=== PATIENT | female | born 1945 | race Caucasian/White ===

== ENCOUNTER → 2018-09-06 13:48 | Outpatient (CLI) | payer MEDICARE, SELFPAY ==
[2018-09-06 14:23] LABS: Influenza A and B by PCR Rapid Negative (Negative)
== END ==
PROVIDERS: Family Provider Internal Medicine; PCP Nurse Practitioner Family; Visit Provider Physician Assistant
DX: R68.89 Other general symptoms and signs (principal)
CPT/HCPCS: 87400

== ENCOUNTER → 2019-02-20 09:27 | Outpatient (CLI) | payer MEDICARE, SELFPAY ==
[2019-02-20 11:23] LABS: Add Manual Diff / Slide Review NO; Basophils Absolute Auto 0 /uL (0-100); Basophils Percent Auto 0.5 % (0-2); Eosinophils Absolute Auto 100 /uL (0-450); Eosinophils Percent Auto 1.6 % (2-4); Hematocrit 41.3 % (36-46); Hemoglobin 13.7 g/dL (12.0-16.0); Lymphocytes Absolute Auto 1500 /uL (1100-4500); Mean Corpuscular HGB Conc 33.2 % (30-36); Mean Corpuscular Hemoglobin 28.4 PG (26-34); Mean Corpuscular Volume 85.3 fL (80-100); Monocytes Absolute Auto 400 /uL (0-900); Monocytes Percent Auto 9.2 % (3-14); Neutrophils Absolute Auto 2600 /uL (1500-7000); Neutrophils Percent Auto 56.7 % (50-75); Platelet Count 191 X10^3/uL (150-400); Red Blood Cell Count 4.84 X10^6/uL (4.0-5.2); Red Cell Distribution Width 14.1 % (11.6-14.8); White Blood Cell Count 4.7 X10^3/uL (4.5-11.0)
[2019-02-20 11:46] LABS: Carbon Dioxide 28 mmol/L (22-32); Chloride 108 mmol/L (98-107); HEMOLYSIS < 15 (0-50); Potassium 4.4 mmol/L (3.4-5.1); Sodium 143 mmol/L (137-145)
== END ==
PROVIDERS: Family Provider Student in an Organized Health Care Education/Training Program; PCP Student in an Organized Health Care Education/Training Program; Visit Provider Orthopaedic Surgery
DX: Z01.818 Encounter for other preprocedural examination (principal); Z01.812 Encounter for preprocedural laboratory examination; M17.10 Unilateral primary osteoarthritis, unspecified knee
CPT/HCPCS: 36415; 80051; 85025; 93005

== ENCOUNTER 2019-02-28 09:41 | Inpatient (IN) | payer MEDICARE, SELFPAY ==
[2019-02-19 10:00] VITALS: BMI 44.9
[2019-02-28] VITALS (11 sets, daily range): BP systolic 119–148; BP diastolic 69–89; PULSE 65–82; RESP 10–23; TEMP 35.9–37; O2SAT 92–97; BMI 44.9
--- NOTE | 2019-02-28 07:37 | DI.RAD.S_ITS ---
PROCEDURE: XR KNEE RT 1TO2V INDICATIONS: post op right TKA TECHNIQUE: 2 view(s) of the knee acquired. COMPARISON: [facility] [place], [place], XR KNEE ARTHRITIC SERIES , 10/07/2018, 7:48. FINDINGS: Bones: Patient is status post knee joint arthroplasty. Hardware components are in expected positions. Visualized bony structures are intact. Soft tissues: Overlying postoperative changes are noted. IMPRESSION: Right knee prosthesis in anatomic line. Dictated by: Magi Hernandez M.D. on 02/28/2019 at 18:17 Approved by: Magi Hernandez M.D. on 02/28/2019 at 18:18
[2019-02-28] MEDS: ACETAMINOPHEN 325 MG TABLET 975 MG PO ×2 (10:17→15:44)
[2019-02-28] MEDS: PREGABALIN 75 MG CAPSULE PO (10:19)
[2019-02-28] MEDS: CELECOXIB 200 MG CAPSULE PO (10:19)
[2019-02-28] MEDS: LACTATED RINGERS 1,000 ML 42 ML IV (10:37)
--- NOTE | 2019-02-28 11:36 | P.OP_ITS ---
Operative Date/Time/Diagnoses Date of procedure: 02/28/19 Time of procedure: 13:42 Pre-op diagnosis: Right knee osteoarthritis Post-op diagnosis: same Procedure & Clinicians Procedure: Right total knee arthroplasty Same procedure as scheduled: Yes Indications: The patient presents today for total knee arthroplasty after failure of conservative treatment. The nature of the procedure including the risks and benefits, alternatives, postoperative course and expected outcome were discussed and all questions answered. Consent was obtained. Operative site confirmed and marked. Surgeon: Koko Hylton Envelope Press Operator: Kvng Gonzalez Anesthesia Type: General, Spinal and Local Operative Notes Findings: The patient had severe osteoarthritis with valgus alignment. The patella rode quite laterally and had thinned out the lateral facet. The patella still had some tilt even after the tourniquet was let down so a lateral patellar retinacular release was necessary. This fully corrected the patellar alignment. Closure Type: primary Specimen(s): none sent Prosthetic devices, grafts, tissues, transplants, or devices: Harpal Persona TKA [femora] CR femoral component, [tibia] stemmed tibial component, [tray] polyethylene tray and [35] mm all poly patella. Applied: implant(s) Estimated Blood Loss (mL): 25 Blood products transfused: none Tourniquet time (min): 49 Procedure in detail: The patient was taken to the operative suite and placed under general and spinal anesthesia. The patient was given prophylactic antibiotics prior to surgery. The patient was also given tranexamic acid, 1 g, just prior to surgery for postoperative hemostasis. The lateral knee was prepped and the joint injected with 20 mL of 1% Lidocaine with epinephrine. The knee was then prepped and draped in usual sterile fashion. The leg was exsanguinated with an Esmarch dressing and the tourniquet raised to 250 torr. A 15 cm anterior incision was made. Next a medial trivector arthrotomy was made. The extensor mechanism was marked to ensure accurate repair. Initial exposing dissection was carried out medially and laterally. The knee was then extended and the patellar thickness was measured and a cut made removing approximately 7- 8 mm of bone. The patella was then sized and drilled. Some excess lateral bone was excised and the patellofemoral ligament released. The knee was then flexed and the intramedullary femoral guide herman placed. The distal femoral cut was made in 5 ? of valgus at the + 0 position. The femoral size was measured and the appropriate cutting block was then placed and the anterior, posterior and chamfer cuts made. The intramedullary tibial alignment herman was then placed. The guide was set to remove approximately 7 mm from the less affected medial side. The proximal tibial cut was then made with an oscillating saw. All meniscus and bony debris was then removed. Posterior femoral osteophytes removed with a curved osteotome. Flexion extension gaps were checked. The knee was tighter in extension than flexion. It was also just slightly tighter laterally. The lateral tightness was corrected by releasing the lateral structures with a pie crust technique with a 15 blade. Another 2 mm was cut from the femur to balance the flexion and extension gaps. The soft tissues were then injected with a combination of 20 mL of half percent Marcaine with epinephrine and 20 mL of Exparel. The trial components were then placed. The knee went into full extension and flexion beyond 120?. There was good medial- lateral balance throughout motion. Patellar tracking showed tilting even after the tourniquet was released. I felt there was appropriate external rotation on both the femoral and tibial component and that this tracking was due to a chronic lateral subluxation of the patella. The patellar retinaculum was released which fully corrected the patellar tracking. The trial components were removed and the knee was cleansed with Pulsavac irrigation and dried. The final components were cemented with high viscosity vacuum mixed bone cement with antibiotics. The joint was filled with a dilute Betadine solution. The knee was held in extension and the patellar clamped until the cement was fully cured. The knee was then irrigated. The extensor mechanism was closed with 5 interrupted #1 Vicryl sutures and a running Quill suture at 90 degrees of flexion. The joint was then injected with a combination of 1 g of tranexamic acid and 20 mL of quarter percent Marcaine with epinephrine. The subcutaneous tissue was closed with 2 0 Vicryl. The skin was closed with millicent and surgical adhesive. An Aquacel dressing and Aaron wrap were then applied. The patient tolerated the procedure well and was returned to recovery room in good condition. Complications: none Post-operative Condition: stable Disposition: PACU Plan for aftercare: [facility] protocol for total knee arthroplasty.
--- NOTE | 2019-02-28 11:36 | PM.PREOP ---
Pre-operative Note Interval Note History & Physical reviewed/Exam performed by Physician: Yes Changes to H&P: No
[2019-02-28] MEDS: CEFAZOLIN 2 GM/100 ML FROZ.PIGGY IV ×2 (12:03→20:03)
--- NOTE | 2019-02-28 12:30 | SUR.OPER ---
Supine on padded OR bed. Pillow under head, arms secured on padded armboards <90 degree abduction. Safety belt across torso. Non-operative leg secured with tape over blanket over lower leg. Operative leg secured in DeMayo/Blayne positioner. Foam padded brace at thigh of operative leg.
[2019-02-28] MEDS: BUPIVACAINE 0.25% W/ EPI (PF) 20 ML, TRANEXAMIC ACID 1,000 MG, SODIUM CHLORIDE 0.9% 10 ML INJ (12:46)
[2019-02-28] MEDS: TRANEXAMIC ACID 1,000 MG VIAL 1000 MG INJ (12:47)
[2019-02-28] MEDS: BUPIVACAINE 0.25% W/ EPI (PF) 40 ML, BUPIVACAINE LIPOSOME 266 MG, SODIUM CHLORIDE 0.9% ... INJ (12:47)
[2019-02-28] MEDS: LIDOCAINE 1% W/EPI 20 ML INJ (12:48)
[2019-02-28] MEDS: SODIUM CHLORIDE IRRIG SOLUTION 250 ML, POVIDONE-IODINE SPONGE STICKS 1 APPLIC IRR (12:48)
--- NOTE | 2019-02-28 15:04 | SUR.PHASEI ---
Report to Gustavo Jackson RN. Pt transferred to room 227 in very stable condition. Remains numb to L1 but is able to flex both feet. Denies pain, VSS, clothes and CPAP sent with pt.
--- NOTE | 2019-02-28 15:07 | PC.NURSE ---
Pt to room via bed from PACU with OR personnel. Pt awake, alert, and oriented x 3. Denies pain, nausea, shortness of breath. O2 sat 94% RA. SCD's on and running. General diet ordered per Pt preference. Pt able to wiggle toes and move feet. Aaron wrap over Aquacell dsg is cdi with ice pack in place. Pt oriented to room, call light, bed controls, and tv controls. Friends at the bedside. Bed alarm on and functioning. Pt agrees to not attempt to get up without assistance.
[2019-02-28] MEDS: LACTATED RINGERS 1,000 ML 125 ML IV (15:44)
[2019-02-28] MEDS: OXYCODONE/ACETAMINOPHEN 5/325 TABLET 1 TAB PO (18:05)
--- NOTE | 2019-02-28 18:15 | PT.IIE ---
Current Diagnoses Unilateral primary osteoarthritis, right knee (02/28/19) Presence of left artificial knee joint (02/28/19) Surgery Performed Operation Date: 02/28/19 11:45 Actual Procedures p Total Knee Arthroplasty(Right) - Koko Hylton MD Surgical History (Last Updated 02/19/19 @ 10:36 by Purnima Barger RN) H/O: hysterectomy (Acute ~1991) History of arthroplasty of left knee (Acute 09/27/16) History of tonsillectomy and adenoidectomy (Acute) Hx of bilateral cataract extraction (Acute) Hx of cholecystectomy (Acute) Hx of resection of small bowel (Acute ~2013) Hx of thumb surgery (Acute) S/P colon resection (Acute ~1991) S/P total knee arthroplasty (Chronic) Medical History (Last Updated 02/19/19 @ 10:35 by Purnima Barger RN) Ankylosing spondylitis of lumbosacral region (Chronic) Anxiety (Acute) Arthritis (Acute) Bakers cyst (Chronic) Johnson's esophagus (Acute) Depression (Acute) Diverticulitis (Acute) Inflammatory bowel diseases (IBD) (Chronic) Left knee pain (Inactive) Lower back pain (Acute) Morbid obesity with BMI of 45.0-49.9, adult (Chronic) Obstructive sleep apnea of adult (Chronic) Primary insomnia (Chronic) Psoriatic arthropathy (Chronic) Right shoulder pain (Acute) Seasonal allergies (Acute) Ulcer (Acute) Physical Therapy Inpatient Evaluation/Re-Eval M1 PT/OT-IP Prior Functional Status Start: 02/28/19 16:45 Freq: NEEDED Status: Active Protocol: Document 02/28/19 16:55 (Rec: 02/28/19 18:15 [id number]) Medical Review Prior Functional Status Medical History Reviewed Yes Diet/Fluid Consistency Regular Communication no deficits noted. able to make needs known Mobility and Gait Pt stated she was independent with home mobility and community without AD. Pt did have difficulty amb for long distance recently and transfer from sit to stand was her most limited activity. Activities of Daily Living and IADL's Pt was I for ADLs but her partner has been helping her with grocery shopping, walking her dog, lifting etc. Social History Household Members significant other Living Arrangements House Number of Floors (Floors) One Floor Number of Stairs To Enter/Railing? 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 Her partner works lane marker installer as a clothes designer and will not be home most of the time. 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 Pt stated she is opened to be d/c to SNF to participate rehab prior to d/c home. Pt had L TKA in 2017 and able to d/c home. M2 PT-IP Current Condition Start: 02/28/19 16:45 Freq: NEEDED Status: Active Protocol: Document 02/28/19 16:55 (Rec: 02/28/19 18:15 [id number]) Physical Therapy Current Condition Current Condition Evaluation Date 02/28/19 Treatment Diagnosis R TKA, difficulty in walking Onset Date 02/28/19 Weight Bearing Status Weight Bearing Status Weight Bear as Tolerated M3 PT-IP Subjective Start: 02/28/19 16:45 Freq: NEEDED Status: Active Protocol: Document 02/28/19 16:55 HH (Rec: 02/28/19 18:15 [id number]) Subjective Physical Therapy Visit Type Type Initial Evaluation Visit Start Time 16:55 Visit Stop Time 17:25 Total Visit Minutes 30 Number of GENERAL OFFICE DISPATCHER Visits 0 Physical Therapy Visit Comments Patient Comments I want to use the bathroom. Patient Goals Pt is opened to d/c to SNF for rehab. Therapy Pain Assessment Pain When Pain Assessed During Mobility Pain Present Pain Present Pain Reported Location L knee Intensity 2 Scale Used Numeric (1 - 10) Description Acute Pain Management Techniques Apply Cold,Distraction M4 PT-IP Mobility and Gait Start: 02/28/19 16:45 Freq: NEEDED Status: Active Protocol: Document 02/28/19 16:55 (Rec: 02/28/19 18:15 [id number]) PT-Bed Mobility Assessment Rolling Type of Rolling Roll to Right Level of Assist Contact Guard Assistance Supine to Sit Supine to Sit Contact Guard Assistance Scooting Scooting to Edge of Bed Contact Guard Assistance Scooting Up and Down in Bed Contact Guard Assistance PT-Transfer Assessment Sit to and From Stand Sit to and from Stand Contact Guard Assistance, Minimal Assistance,Use of Upper Extremities Equipment Transfer Assistive Device Gait Belt,Front Wheeled Walker Orthotic/Prosthetic Devices or Brace: No Transfers Transfer Destination Bed,Chair,Toilet Transfer Technique Stand Step Pivot Transfer Ability Level of Assist Contact Guard Assistance, Minimal Assistance,Use of Upper Extremities Comments Mobility Comments Pt was in bed upon assessment and requested to use bathroom. Pt completed supine to sit to R EOB using R bed rail. She then scooted towards EOB and able to stand up with SBA and FWW. Pt's AROM appeared to have WNL without c/o increase pain. She then amb to bathroom for toileting who didnt need to use staggered stance for descent to toilet chair but use of grab bar for support. She did self care and stood up again. Pt requested to back to chair due to increase in pain and fatigue. Pt amb a total of 8 feet with FWW and antalgic gait, but able to use 1/2 step over gait. Pt did need CGA/ min A for transfers. Call light was placed within reach after pt sat down/ Gait Assessment Gait Gait Assistance Required: Contact Guard Assist Distance (Feet) 8 Able to Maintain Weight Bearing Status Yes During Gait Assistive Devices Assistive Device Gait Belt,Front Wheeled Walker Orthotic/Prosthetic Devices or Brace: No Gait Deviations General Gait Pattern Antalgic,Decreased Stride Length,Decreased Feet Clearance,Step-to Gait Factors Limiting Gait Function Factors Limiting Gait Function Decreased Activity Tolerance, Decreased Strength,Limited Range of Motion,Pain,Poor Balance Comments Gait Comments see mobility comments PT-Balance Assessment Sitting Balance and Reactions Static Sitting Balance Ability Normal Dynamic Sitting Balance Ability Normal Standing Balance and Reactions Static Standing Balance Ability Normal Dynamic Standing Balance Ability Good Device Used FWW M5 PT-IP Objective Assessments Start: 02/28/19 16:45 Freq: NEEDED Status: Active Protocol: Document 02/28/19 16:55 (Rec: 02/28/19 18:15 [id number]) Orientation Orientation/Cognition Level of Alertness Alert Orientation Name,Age,Birthday,Month,Date, Year,Day of Week,Place, Situation Language Function Ability No Deficits Noted Safety Awareness Understands Safety Issues Memory Description No Deficits Noted Gross Range of Motion Upper Extremity ROM Assessment Within Functional Limits Lower Extremity ROM Assessment Right Impaired Impairments knee AROM 5-100 degrees Coordination Assessment Gross Coordination Gross Coordination WNL Sensation Assessment Sensation Gross Sensation WNL Muscle Tone Muscle Tone WNL Yes M6 PT-IP Treatment Start: 02/28/19 16:45 Freq: NEEDED Status: Active Protocol: Document 02/28/19 16:55 (Rec: 02/28/19 18:15 [id number]) Physical Therapy Treatment Exercises Exercises Quad Sets,Heel Slides Education Education Provided Precautions,Weight Bearing Status,Post-Op Packet,Safety M7 PT-IP Assessment and Plan Start: 02/28/19 16:45 Freq: NEEDED Status: Active Protocol: Document 02/28/19 16:55 (Rec: 02/28/19 18:15 [id number]) PT Summary Assessment and Plan Potential Rehabilitation Potential Excellent Status of Condition at Evaluation Stable Summary Impairments Pain,ROM,Strength,Balance,Bed Mobility,Transfers,Gait, Activity Tolerance Assessment Summary Pt is a low complexity who is POD#1 R TKA. Pt did fairly well for transfers and bed mobility but did not amb much due to increase in knee pain. Pt overall needed CGA/ min A and appear relatively safe at this point. 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 Pt is very opended to be d/c SNF to participate rehab to improve mobility and strength. Will cont assess pt's progress. Goals Bed Mobility Goal Standby Assistance Transfer Goal Standby Assistance,Front Wheeled Walker Gait Goal Standby Assistance,Front Wheel Walker Gait Distance 100 Other Goals 5 MACRINA with B rails Days to Meet Goals 5 Frequency of Treatment Frequency Of Treatment Twice a Day Treatment Plan Physical Therapy Treatment Plan Bed Mobility Training,Transfer Training,Gait Training, Therapeutic Exercise,Balance Retraining,Post Op Education, Discharge Planning,Hot or Cold Pack,Neuromuscular Re-ed Other Recommendations and Next Treatment mobility as jeramie Focus stair climbing with B rails if possible CG training Recommendations To Nursing Amount of Assist Needed 1 Person Assist Discharge Recommendations PT Discharge Recommendations Home with Assistance,Home Health,SNF Rehab Equipment Needed for Home Before shower seat/ shower bench Discharge since Pt has a narrow shower tub
[2019-02-28] MEDS: ASPIRIN EC 81 MG TABLET PO (20:03)
[2019-02-28] MEDS: CITALOPRAM 10 MG TABLET PO (20:03)
--- NOTE | 2019-02-28 22:32 | PC.NURSE ---
Alert/oriented. Pain level 4-5/10, managed with one percocet. Pt declined 2100 dose of tylenol, states maybe later. Aquacell/nahed wrap c/d/i. CMS+, except baseline residual numbness, between toes on left-per pt report. LS decreased. CPAP for sleep, 2-3L to keep sats greater than 90% as per order. Continuous pulse ox on per duramorph spinal orders. RT assisted with CPAP setup. Up with one assist/walker to BR. Bed alarm on.
[2019-03-01] VITALS (7 sets, daily range): BP systolic 110–137; BP diastolic 65–83; PULSE 57–75; RESP 16–18; TEMP 36.3–36.8; O2SAT 94–98
[2019-03-01] MEDS: OXYCODONE/ACETAMINOPHEN 5/325 TABLET 1 TAB PO ×3 (00:35→08:28)
[2019-03-01] MEDS: LACTATED RINGERS 1,000 ML 125 ML IV (00:36)
[2019-03-01] MEDS: CEFAZOLIN 2 GM/100 ML FROZ.PIGGY IV (04:25)
[2019-03-01] MEDS: PANTOPRAZOLE 20 MG TABLET PO (06:20)
[2019-03-01 06:55] LABS: Hematocrit 38.3 % (36-46); Hemoglobin 12.7 g/dL (12.0-16.0)
[2019-03-01] MEDS: ACETAMINOPHEN 325 MG TABLET 975 MG PO ×3 (08:28→20:42)
[2019-03-01] MEDS: ASPIRIN EC 81 MG TABLET PO ×2 (08:28→20:42)
[2019-03-01] MEDS: SODIUM CHLORIDE 0.9% FLUSH 10 ML IV ×2 (08:29→20:42)
--- NOTE | 2019-03-01 08:34 | PC.NURSE ---
Shift summary: Alert and oriented X3. Aaron wrap/dressing to R knee C/D/I. CMS+, denies paresthesias. Strong pedal pulses, feet warm/pink, cap refill <2 sec. Medicated with 1 tab Percocet + scheduled Tylenol for 6/10 R knee pain. Tolerating PO's, VSS, denies dizziness or lightheadeness with ambulation. IV saline locked per protocol. Lungs CTA, HRR. Room air. Up to bathroom, then to chair for breakfast. Able to make needs known and calls appropriately. Call light and belongings within reach. Moderate fall risk.
--- NOTE | 2019-03-01 10:05 | PM.PNPO.1 ---
Subjective Subjective Date Patient Seen: 03/01/19 Time Patient Seen: 10:06 Interval history: Alexandra is POD 1 s/p right total knee arthroplasty with Dr. Hylton. Patient's pain well-controlled last night. She worked with Physical therapy this morning. Patient lives with her partner at home, but notes her partner will be unable to care for her. Her block wore off this morning. Denies chest pain, or shortness of breath. Exam Vital Signs (past 8 hours): - 03/01/19 04:24 03/01/19 07:50 Temperature 97.8 F 97.4 F L Pulse Rate 57 L 66 Respiratory Rate 18 16 Blood Pressure 126/76 132/83 Pulse Oximetry 98 97 Oxygen Delivery Method Room Air Oxygen Flow Rate 0 Narrative Exam Narrative: Patient lying in bed in no acute distress. She is alert orient x3. Calves are soft, compressible, nontender bilaterally. Able actively dorsiflex plantar flex. Sensation intact to light touch throughout bilateral extremities. Pulses are symmetrical. Right knee dressing CDI, and Aaron wrap in place. Objective Labs Result Diagrams: 03/01/19 06:37 Labs: Laboratory Results - last 24 hr 03/01/19 06:37 Hgb 12.7 Hct 38.3 Assessment & Plan Post-op Assessment and plan (1) S/P total knee arthroplasty: (2) Inflammatory bowel diseases (IBD): (3) Morbid obesity with BMI of 45.0-49.9, adult: (4) Psoriatic arthropathy: (5) Ankylosing spondylitis of lumbosacral region: (6) Obstructive sleep apnea of adult: (7) Diverticulitis: (8) Stomach ulcer: (9) Johnson esophagus: Postoperative Procedures: Procedures Operation Date: 02/28/19 11:45 Actual Procedures Side Surgeon p Total Knee Arthroplasty Right Koko Hylton MD Patient will mobilize with physical therapy today. Patient will continue current pain control. ASA for DVT prophylaxis. Patient will likely need group home facility for continued care after surgery. Quality VTE Deep Vein Thrombosis/Pulmonary Embolism Present on Admission: No
--- NOTE | 2019-03-01 10:51 | PT.IPTN ---
Current Diagnoses Morbid (severe) obesity due to excess calories (02/28/19) Obstructive sleep apnea (adult) (pediatric) (02/28/19) Johnson's esophagus without dysplasia (02/28/19) Gastric ulcer, unspecified as acute or chronic, without hemorrhage or perforation (02/28/19) Noninfective gastroenteritis and colitis, unspecified (02/28/19) Diverticulitis of intestine, part unspecified, without perforation or abscess without bleeding (02/28/19) Arthropathic psoriasis, unspecified (02/28/19) Unilateral primary osteoarthritis, right knee (02/28/19) Ankylosing spondylitis of lumbosacral region (02/28/19) Body mass index (BMI) 45.0-49.9, adult (02/28/19) Presence of left artificial knee joint (02/28/19) Presence of unspecified artificial knee joint (02/28/19) Surgery Performed Operation Date: 02/28/19 11:45 Actual Procedures p Total Knee Arthroplasty(Right) - Koko Hylton MD Physical Therapy Treatment Note M2 PT-IP Current Condition Start: 02/28/19 16:45 Freq: NEEDED Status: Active Protocol: Document 02/28/19 16:55 HH (Rec: 02/28/19 18:15 HH [id number]) Physical Therapy Current Condition Current Condition Evaluation Date 02/28/19 Treatment Diagnosis R TKA, difficulty in walking Onset Date 02/28/19 Weight Bearing Status Weight Bearing Status Weight Bear as Tolerated M3 PT-IP Subjective Start: 02/28/19 16:45 Freq: NEEDED Status: Active Protocol: Document 03/01/19 09:27 MILLER (Rec: 03/01/19 10:48 MILLER [id number]) Subjective Physical Therapy Visit Type Type Treatment Note Visit Start Time 09:27 Visit Stop Time 09:49 Total Visit Minutes 22 Physical Therapy Visit Comments Patient Comments Wants to use the toilet and walk in hallway. Patient Goals D/C to SNF M4 PT-IP Mobility and Gait Start: 02/28/19 16:45 Freq: NEEDED Status: Active Protocol: Document 03/01/19 09:27 LJ (Rec: 03/01/19 10:48 LJ [id number]) PT-Transfer Assessment Sit to and From Stand Sit to and from Stand Standby Assistance,Use of Upper Extremities Equipment Transfer Assistive Device Gait Belt,Front Wheeled Walker Orthotic/Prosthetic Devices or Brace: No Transfers Transfer Destination Bed,Toilet Transfer Technique Stand Step Pivot Transfer Ability Level of Assist Standby Assistance,Use of Upper Extremities Comments Mobility Comments Pt sitting in chair wanting to use the toilet and ambulate in hallway. SBA for standing from chair and toilet and sitting onto toilet. Pt used handrails in bathroom for sitting onto and getting up from toilet. Pt able to lift her legs to return to bed without assist. SAlso able to scoot up in bed with SBA. All Bed mobility was SBA. Gait Assessment Gait Gait Assistance Required: Standby Assistance Distance (Feet) 180 Able to Maintain Weight Bearing Status Yes During Gait Assistive Devices Assistive Device Gait Belt,Front Wheeled Walker Orthotic/Prosthetic Devices or Brace: No Gait Deviations General Gait Pattern Antalgic,Decreased Stride Length,Decreased Feet Clearance,Step-to Gait Factors Limiting Gait Function Factors Limiting Gait Function Decreased Activity Tolerance, Decreased Strength,Limited Range of Motion,Pain,Poor Balance Comments Gait Comments Pt was steady on her feet during ambulation requiring SBA. Good balance and gait pattern. Distance tolerance increased since yesterday. Pt stated knee was somewhat painful but not too bad. M5 PT-IP Objective Assessments Start: 02/28/19 16:45 Freq: NEEDED Status: Active Protocol: Document 02/28/19 16:55 (Rec: 02/28/19 18:15 [id number]) Orientation Orientation/Cognition Level of Alertness Alert Orientation Name,Age,Birthday,Month,Date, Year,Day of Week,Place, Situation Language Function Ability No Deficits Noted Safety Awareness Understands Safety Issues Memory Description No Deficits Noted Gross Range of Motion Upper Extremity ROM Assessment Within Functional Limits Lower Extremity ROM Assessment Right Impaired Impairments knee AROM 5-100 degrees Coordination Assessment Gross Coordination Gross Coordination WNL Sensation Assessment Sensation Gross Sensation WNL Muscle Tone Muscle Tone WNL Yes M6 PT-IP Treatment Start: 02/28/19 16:45 Freq: NEEDED Status: Active Protocol: Document 02/28/19 16:55 (Rec: 02/28/19 18:15 [id number]) Physical Therapy Treatment Exercises Exercises Quad Sets,Heel Slides Education Education Provided Precautions,Weight Bearing Status,Post-Op Packet,Safety M7 PT-IP Assessment and Plan Start: 02/28/19 16:45 Freq: NEEDED Status: Active Protocol: Document 03/01/19 09:27 MILLER (Rec: 03/01/19 10:48 MILLER [id number]) PT Summary Assessment and Plan Potential Rehabilitation Potential Excellent Status of Condition at Evaluation Stable Summary Impairments Pain,ROM,Strength,Balance,Bed Mobility,Transfers,Gait, Activity Tolerance Assessment Summary Pt has shown improvement since yesterday with mobility and gait SBA. Pt appears relatively safe at this point. 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 Pt is very opended to be d/c SNF to participate rehab to improve mobility and strength. Will cont assess pt's progress. Pt is not wanting to go home due to several factors which she stated. Firstly, she is concerned about the gravel road she needs to navigate to get into house. Her second concern is that she is unable to get into her bed and shower . She has not attempted stairs but will do so in the afternoon treatment. Thirdly, pt states she will not be able to get to her OP PT appointments due to her inability to drive and her partner's fulltime job. This COMMUNICATION ENGINEER recommends short term SNF or HH Goals Bed Mobility Goal Standby Assistance Transfer Goal Standby Assistance,Front Wheeled Walker Gait Goal Standby Assistance,Front Wheel Walker Gait Distance 100 Other Goals 5 MACRINA with B rails Days to Meet Goals 5 Frequency of Treatment Frequency Of Treatment Twice a Day Treatment Plan Physical Therapy Treatment Plan Bed Mobility Training,Transfer Training,Gait Training, Therapeutic Exercise,Balance Retraining,Post Op Education, Discharge Planning,Hot or Cold Pack,Neuromuscular Re-ed Other Recommendations and Next Treatment mobility as jeramie Focus stair climbing with B rails if possible CG training Recommendations To Nursing Amount of Assist Needed Standby Assistance Discharge Recommendations PT Discharge Recommendations Home with Assistance,Home Health,SNF Rehab Equipment Needed for Home Before shower seat/ shower bench Discharge since Pt has a narrow shower tub
[2019-03-01] MEDS: OXYCODONE IR 5 MG TABLET PO ×3 (13:16→20:42)
--- NOTE | 2019-03-01 14:17 | CM.DANOTE ---
DCP/Assessment: Reviewed chart. Patient is a 73yr old female admitted [facility] for right TKA performed on 02-28-[address] Hylton. PCP is Lolita Quintero. Primary payor is 1)Medicare 2)[facility]. Met with patient explained CM/SW role. Patient reports that she resides with her partner/Kath ph# [phone] in [place]. Patient is hopeful that she will be able to go to a SNF for recovery. Patient reports that her partner is not home during the day and she has no additional support. Notified patient that payment for SNF rehab will be determined on which status she is placed in. Patient made aware that if she is placed in OBS status she will be responsible financially for room/board at SNF. If patient inpatient status she will need to qualify under Medicare guidelines to be eligible. [facility] SNF choice is [facility]. Therapy evaluations pending. UR/Koko reviewing for status. CRUCIBLE PACKER faxed clinical to [facility] with copy of PASRR. Spoke with Dashawn whom reports that they most likely can take on Sunday03-03-19. P: If patient qualifies for SNF, [facility] first choice. If she does not may need to consider home with HH. Patient made aware of both. If patient does not meet inpatient status requirements and qualifies for SNF under rehab she will need to pay privately for room/board. JOSHUA Pope Discharge Planning/Care Management CM Discharge Assessment Start: 03/01/19 14:08 Freq: Status: Active Protocol: Document 03/01/19 14:08 ADITYA (Rec: 03/01/19 14:17 ADITYA [id number]) Discharge Planning Assessment Assigned [employer] Processing Labourer JOSHUA Pope Advance Directives? Yes Advance Directives on File Yes History Provided By Patient,Medical Record Prior Living Arrangements House Household Members significant other Type of transporation used prior to Drives own vehicle admit Independent with ADL's Yes Is patient alert and oriented? Yes Caregiver for Another No DME Already Rented / Owned FWW / Walker Patient/Family Preference Jail Facility Discharge Plan Jail Facility Transportation Arrangement Facility to provide transport Referrals Initiated Jail If patient plan is SNF: Has PASSR been Yes completed? Comment Awaiting status update Medicare Choice List Provided Yes SNF/HH Preference [facility] Has Agency SNF been contacted Yes Comment Faxed clinical to Dashawn at [facility]. Per Dashawn they most likely can accept on Sunday03-03-19. Whiteboard Updated in Patient Room with Yes name and ext. # of [employer] Processing Labourer Review Status In Process Next Review Type Continued Stay Review Pre-Anesthesia Assessment Start: 02/19/19 10:00 Freq: Status: Active Protocol: Document 02/19/19 10:00 CAB (Rec: 02/19/19 10:40 CAB [id number]) Pre-Anesthesia Assessment Patient Information Reviewed Via Phone Assessment Assessment Completed With Patient Diagnostic Results BMP/CMP,CBC,EKG Comment LABs/EKG @ 02/20/19 Primary Care Provider Lolita Quintero Seen Specialist in Last 12 Months Yes Specialist Seen Orthopedist,Sleep specialist, Other Comment Rheumatology Primary Language Persian Videogame Tester Required No Height 152.4 cm Weight 104.326 kg Body Mass Index (BMI) 44.9 Hearing Ability Normal Visual Impairment No Limitations Visual Assist None Dentition Type Teeth, Natural Present Barriers to Learning None Hx Anesthesia Reactions Yes: PONV Hx Family Anesthesia Reaction No Hx Malignant Hyperthermia No Hx Blood Transfusions No Anesthesia Review Requested No Supervisor Finishing Yes: Pt would like to d/c to [facility]. alcohol intake former Smoking Status Never smoker Substance Use Type does not use Pain Present Pain Reported Musculoskeletal Symptoms Abnormal Gait,Back Pain, Difficulty Walking,Joint Pain, Muscle Cramps,Neck Pain History of Falling (Recent or History of No ) Patient is completely paralyzed or No completely immobile Mental Status Oriented to own ability Is patient on oxygen? No Does patient have DE LEON/SOB Yes: DE LEON r/t deconditioning Hx Sleep Apnea Yes CPAP/BIPAP use prescribed and used routinely Will Bring CPAP/BIPAP DOS Yes Currently Taking a Beta Jac No Can You Climb a Flight of Stairs Without Yes SOB Hx Chest Pain No Hx SOB Yes: DE LEON r/t deconditioning Hx Syncope or Dizziness No Anti-Coagulant Therapy No Has a Reproductive Endocrinologist No Cardiac Testing No Hx Pacemaker/ICD No Pacemaker Rep Required? No Cardiac Clearance Received Not Applicable Diet Type At Home Low Carb dysphagia No Bladder Pattern Urgency Urinary Catheter Present No Hx Urinary Self Catheterization No Diabetes No HgbA1C 5.7 Date 02/20/19 Patient No Lactating No Hx Drug Resistant Organism No Presence of External or Internal Medical Yes: Left knee prosthesis, Devices CPAP Have you traveled outside the [place] States in the last 30 days? Marital Status Lives With significant other Prior Living Arrangements House Number of Floors (Floors) One Floor Support System Significant Other Does the Patient Have Assistance After Yes: Minimal freeman due to S.O. Surgery working Patient Discharge Plan Description Jail Facility/Rehab Comment Pt would like to d/c to [facility] Feels Safe in Current Environment Yes Been Physically Hurt or Threatened By a No Person in Current Environment Do you have thoughts of harming yourself None or others? Are you currently considering suicide? No Do you have a plan to hurt yourself or No Plan others? Do You Have Any Spiritual Beliefs That No May Affect Your HC Choices? Do You Have Any Cultural Practices That No May Affect Your HC Choices? 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 Yes Advance Directives on File Yes Power of Package Sealer Machine Yes Power of Package Sealer Machine Name Kath Garber (S.O.) Power of Package Sealer Machine PAC Instructions Bring CPAP/BIPAP,Do not shave/ clip surgical site,Durable medical equipment,Medications to take/avoid,Nasal antibiotic ,No ETOH/petroleum product on skin DOS,NPO,Pre-surgical wash ,Sturdy shoes/comfortable clothes,Do not bring valuables and remove jewelry
--- NOTE | 2019-03-01 14:38 | PT.IPTN ---
Current Diagnoses Morbid (severe) obesity due to excess calories (02/28/19) Obstructive sleep apnea (adult) (pediatric) (02/28/19) Johnson's esophagus without dysplasia (02/28/19) Gastric ulcer, unspecified as acute or chronic, without hemorrhage or perforation (02/28/19) Noninfective gastroenteritis and colitis, unspecified (02/28/19) Diverticulitis of intestine, part unspecified, without perforation or abscess without bleeding (02/28/19) Arthropathic psoriasis, unspecified (02/28/19) Unilateral primary osteoarthritis, right knee (02/28/19) Ankylosing spondylitis of lumbosacral region (02/28/19) Body mass index (BMI) 45.0-49.9, adult (02/28/19) Presence of left artificial knee joint (02/28/19) Presence of unspecified artificial knee joint (02/28/19) Surgery Performed Operation Date: 02/28/19 11:45 Actual Procedures p Total Knee Arthroplasty(Right) - Koko Hylton MD Physical Therapy Treatment Note M2 PT-IP Current Condition Start: 02/28/19 16:45 Freq: NEEDED Status: Active Protocol: Document 02/28/19 16:55 HH (Rec: 02/28/19 18:15 HH [id number]) Physical Therapy Current Condition Current Condition Evaluation Date 02/28/19 Treatment Diagnosis R TKA, difficulty in walking Onset Date 02/28/19 Weight Bearing Status Weight Bearing Status Weight Bear as Tolerated M3 PT-IP Subjective Start: 02/28/19 16:45 Freq: NEEDED Status: Active Protocol: Document 03/01/19 13:50 LJ (Rec: 03/01/19 14:38 LJ [id number]) Subjective Physical Therapy Visit Type Type Treatment Note Visit Start Time 13:50 Visit Stop Time 14:11 Total Visit Minutes 21 Notes Pt in bed getting ready for sleep. Partner in room Physical Therapy Visit Comments Patient Comments Willing to getr out of bed and walk in hallway. Patient Goals D/C to SNF M4 PT-IP Mobility and Gait Start: 02/28/19 16:45 Freq: NEEDED Status: Active Protocol: Document 03/01/19 13:50 LJ (Rec: 03/01/19 14:38 LJ [id number]) PT-Bed Mobility Assessment Rolling Type of Rolling Roll to Right Level of Assist Standby Assistance Supine to Sit Supine to Sit Standby Assistance Scooting Scooting to Edge of Bed Standby Assistance Scooting Up and Down in Bed Standby Assistance PT-Transfer Assessment Sit to and From Stand Sit to and from Stand Standby Assistance,Use of Upper Extremities Equipment Transfer Assistive Device Gait Belt,Front Wheeled Walker Orthotic/Prosthetic Devices or Brace: No Transfers Transfer Destination Bed,Toilet Transfer Technique Stand Step Pivot Transfer Ability Level of Assist Standby Assistance,Use of Upper Extremities Comments Mobility Comments Pt willing to get out of bed and walk before she takes a nap. All mobility is SBA as is gait. Her gait mechanics are very good and has almost normalized with good heel strike and stance duration bilaterally nearly equal. No antalgia noted. Pt able to fully wt bear on involved leg. Gait Assessment Gait Gait Assistance Required: Standby Assistance Distance (Feet) 200 Able to Maintain Weight Bearing Status Yes During Gait Assistive Devices Assistive Device Gait Belt,Front Wheeled Walker Orthotic/Prosthetic Devices or Brace: No Gait Deviations General Gait Pattern Decreased Feet Clearance Factors Limiting Gait Function Factors Limiting Gait Function Decreased Activity Tolerance, Decreased Strength,Limited Range of Motion,Pain,Poor Balance Comments Gait Comments Pt is no longer exhibiting antalgic gait. Has near normal gait mechanics with equal step distance bilaterally. No LOB or c/o pain with ambulation. Pt had no issues getting in/out of bed or positioning herself in bed. Demonstrates safe gait in room and hallway. M5 PT-IP Objective Assessments Start: 02/28/19 16:45 Freq: NEEDED Status: Active Protocol: Document 02/28/19 16:55 (Rec: 02/28/19 18:15 [id number]) Orientation Orientation/Cognition Level of Alertness Alert Orientation Name,Age,Birthday,Month,Date, Year,Day of Week,Place, Situation Language Function Ability No Deficits Noted Safety Awareness Understands Safety Issues Memory Description No Deficits Noted Gross Range of Motion Upper Extremity ROM Assessment Within Functional Limits Lower Extremity ROM Assessment Right Impaired Impairments knee AROM 5-100 degrees Coordination Assessment Gross Coordination Gross Coordination WNL Sensation Assessment Sensation Gross Sensation WNL Muscle Tone Muscle Tone WNL Yes M6 PT-IP Treatment Start: 02/28/19 16:45 Freq: NEEDED Status: Active Protocol: Document 02/28/19 16:55 (Rec: 02/28/19 18:15 [id number]) Physical Therapy Treatment Exercises Exercises Quad Sets,Heel Slides Education Education Provided Precautions,Weight Bearing Status,Post-Op Packet,Safety M7 PT-IP Assessment and Plan Start: 02/28/19 16:45 Freq: NEEDED Status: Active Protocol: Document 03/01/19 13:50 LJ (Rec: 03/01/19 14:38 LJ [id number]) PT Summary Assessment and Plan Potential Rehabilitation Potential Excellent Status of Condition at Evaluation Stable Summary Impairments Pain,ROM,Strength,Balance,Gait ,Activity Tolerance Progress Towards Goals Progressing Toward Goals Assessment Summary Pt continues to show improvement. Has met most goals other than stair climbing. Frequency of Treatment Frequency Of Treatment Twice a Day Treatment Plan Physical Therapy Treatment Plan Bed Mobility Training,Transfer Training,Gait Training, Therapeutic Exercise,Balance Retraining,Post Op Education, Discharge Planning,Hot or Cold Pack,Neuromuscular Re-ed Other Recommendations and Next Treatment mobility as jeramie Focus stair climbing with B rails if possible CG training Recommendations To Nursing Amount of Assist Needed Standby Assistance Discharge Recommendations PT Discharge Recommendations Home with Assistance,Home Health
[2019-03-01] MEDS: CITALOPRAM 10 MG TABLET PO (20:41)
[2019-03-02 00:05] VITALS: BP 143/78; PULSE 71; RESP 18; TEMP 36.2; O2SAT 92
[2019-03-02] MEDS: IBUPROFEN 400 MG TABLET PO ×6 (00:25→21:23)
[2019-03-02] MEDS: OXYCODONE IR 5 MG TABLET PO ×6 (00:26→21:23)
[2019-03-02 05:30] VITALS: BP 143/85; PULSE 77; RESP 16; TEMP 36.6; O2SAT 92
[2019-03-02] MEDS: PANTOPRAZOLE 20 MG TABLET PO (05:33)
[2019-03-02 08:00] VITALS: BP 151/93; PULSE 69; RESP 16; TEMP 36.6; O2SAT 96
--- NOTE | 2019-03-02 08:37 | PM.PNPO.1 ---
Subjective Subjective Date Patient Seen: 03/02/19 Time Patient Seen: 08:37 Interval history: POD 2 s/p right total knee arthroplasty with Dr. Hylton. Patient states that last night pain was the worst. she does say that working with physical therapy went pretty well yesterday. Patient lives with her partner at home, but notes her partner will be unable to care for her. She is hoping to go to group home. Denies chest pain, or shortness of breath. Exam Vital Signs (past 8 hours): - 03/02/19 05:30 03/02/19 08:00 Temperature 97.9 F 97.8 F Pulse Rate 77 69 Respiratory Rate 16 16 Blood Pressure 143/85 H 151/93 H Pulse Oximetry 92 96 Oxygen Delivery Method Room Air,CPAP Oxygen Flow Rate 0 Narrative Exam Narrative: General exam alert and oriented female sitting at bedside chair with breakfast HEENT: Normocephalic atraumatic Respiratory: Unlabored room CV regular rate and rhythm Extremity: Moving upper extremities nontender full range of motion Lower extremity: Right lower extremity with Aaron wrap in place moderate swelling as to be expected. Calfs are soft. Demonstrates dorsiflexion plantar flexion of the foot with sensation grossly intact to light touch in all distributions. Brisk capillary refill. Endorses tenderness to palpation soreness. No tenderness to palpation full range of motion left lower extremity. Calf soft. SCDs in place Objective Labs Result Diagrams: 03/01/19 06:37 Assessment & Plan Post-op Assessment and plan (1) Arthritis of right knee: Postoperative Procedures: Procedures Operation Date: 02/28/19 11:45 Actual Procedures Side Surgeon p Total Knee Arthroplasty Right Koko Hylton MD patient is postop day 2 status post right knee arthroplasty for arthritis. She had a difficult time with pain overnight. I have looked at her medications and her last dose of oxycodone was about midnight. She had ibuprofen at 5:30 a.m.. She would be eligible for additional oral narcotic and nonnarcotic medications including oxycodone, Tylenol in addition to the dose of ibuprofen that she had. We discussed alternating these at regular intervals can help with pain control. Patient will work on her pain control throughout the day. She will work with physical therapy. And we would ask care managers to work with the patient on snf discharge. Patient meets inpatient criteria for total knee arthroplasty and uncontrolled pain. will continue to work on pain control. She has not had any IV medication recently and the oral regimen has room for adjustment. With more regular dosing I think she will be better controlled and ready for discharge to a facility if selected, vs SCDs and aspirin 81 mg b.i.d. for DVT prophylaxis. Quality VTE Deep Vein Thrombosis/Pulmonary Embolism Present on Admission: No
[2019-03-02] MEDS: ASPIRIN EC 81 MG TABLET PO ×2 (09:18→21:23)
[2019-03-02] MEDS: SODIUM CHLORIDE 0.9% FLUSH 10 ML IV ×2 (09:19→21:24)
--- NOTE | 2019-03-02 10:28 | PT.IPTN ---
Current Diagnoses Morbid (severe) obesity due to excess calories (02/28/19) Obstructive sleep apnea (adult) (pediatric) (02/28/19) Johnson's esophagus without dysplasia (02/28/19) Gastric ulcer, unspecified as acute or chronic, without hemorrhage or perforation (02/28/19) Noninfective gastroenteritis and colitis, unspecified (02/28/19) Diverticulitis of intestine, part unspecified, without perforation or abscess without bleeding (02/28/19) Arthropathic psoriasis, unspecified (02/28/19) Unilateral primary osteoarthritis, right knee (02/28/19) Ankylosing spondylitis of lumbosacral region (02/28/19) Body mass index (BMI) 45.0-49.9, adult (02/28/19) Presence of left artificial knee joint (02/28/19) Presence of unspecified artificial knee joint (02/28/19) Surgery Performed Operation Date: 02/28/19 11:45 Actual Procedures p Total Knee Arthroplasty(Right) - Koko Hylton MD Physical Therapy Treatment Note M2 PT-IP Current Condition Start: 02/28/19 16:45 Freq: NEEDED Status: Active Protocol: Document 02/28/19 16:55 HH (Rec: 02/28/19 18:15 HH [id number]) Physical Therapy Current Condition Current Condition Evaluation Date 02/28/19 Treatment Diagnosis R TKA, difficulty in walking Onset Date 02/28/19 Weight Bearing Status Weight Bearing Status Weight Bear as Tolerated M3 PT-IP Subjective Start: 02/28/19 16:45 Freq: NEEDED Status: Active Protocol: Document 03/02/19 09:02 CLB (Rec: 03/02/19 10:42 CLB [id number]) Subjective Physical Therapy Visit Type Type Treatment Note Visit Start Time 09:02 Visit Stop Time 10:28 Total Visit Minutes 20 Notes Split tx 9:02-9:12, 10:18-10: 28 Number of SPEECH AND HEARING CLINIC DIRECTOR Visits 20 Physical Therapy Visit Comments Patient Comments Pt with pain of 8-10 during mobility but needed to use toilet and wanted to go back to bed and wait for pain meds. Upon return pain had decreased and pt wanted to ambulate. Patient Goals D/C to SNF M4 PT-IP Mobility and Gait Start: 02/28/19 16:45 Freq: NEEDED Status: Active Protocol: Document 03/02/19 09:02 CLB (Rec: 03/02/19 10:42 CLB [id number]) PT-Bed Mobility Assessment Supine to Sit Supine to Sit Minimal Assistance Scooting Scooting Up and Down in Bed Standby Assistance PT-Transfer Assessment Sit to and From Stand Sit to and from Stand Standby Assistance,Use of Upper Extremities Equipment Transfer Assistive Device Gait Belt,Front Wheeled Walker Orthotic/Prosthetic Devices or Brace: No Transfers Transfer Destination Bed,Toilet Transfer Technique Stand Step Pivot Transfer Ability Level of Assist Standby Assistance,Use of Upper Extremities Comments Mobility Comments Pt required Min A of RLE during sit-supine. Gait Assessment Gait Gait Assistance Required: Standby Assistance Distance (Feet) 140 Able to Maintain Weight Bearing Status Yes During Gait Assistive Devices Assistive Device Gait Belt,Front Wheeled Walker Orthotic/Prosthetic Devices or Brace: No Gait Deviations General Gait Pattern Decreased Feet Clearance Factors Limiting Gait Function Factors Limiting Gait Function Decreased Activity Tolerance, Decreased Strength,Limited Range of Motion,Pain,Poor Balance Comments Gait Comments Pt ambulates with step through gait pattern. Pt with increased pain that caused nausea requiring pt to take two standing rest breaks during ambulation. Stair Climbing Assessment Comments Stair Climbing Comments unable due to pain. M5 PT-IP Objective Assessments Start: 02/28/19 16:45 Freq: NEEDED Status: Active Protocol: Document 02/28/19 16:55 HH (Rec: 02/28/19 18:15 HH [id number]) Orientation Orientation/Cognition Level of Alertness Alert Orientation Name,Age,Birthday,Month,Date, Year,Day of Week,Place, Situation Language Function Ability No Deficits Noted Safety Awareness Understands Safety Issues Memory Description No Deficits Noted Gross Range of Motion Upper Extremity ROM Assessment Within Functional Limits Lower Extremity ROM Assessment Right Impaired Impairments knee AROM 5-100 degrees Coordination Assessment Gross Coordination Gross Coordination WNL Sensation Assessment Sensation Gross Sensation WNL Muscle Tone Muscle Tone WNL Yes M6 PT-IP Treatment Start: 02/28/19 16:45 Freq: NEEDED Status: Active Protocol: Document 03/02/19 09:02 CLB (Rec: 03/02/19 10:42 CLB [id number]) Physical Therapy Treatment Exercises Exercises Heel Slides Other Treatments Other Treatment Performed SCD's placed on pt bilaterally and turned on. M7 PT-IP Assessment and Plan Start: 02/28/19 16:45 Freq: NEEDED Status: Active Protocol: Document 03/02/19 09:02 CLB (Rec: 03/02/19 10:42 CLB [id number]) PT Summary Assessment and Plan Potential Rehabilitation Potential Excellent Status of Condition at Evaluation Stable Summary Impairments Pain,ROM,Strength,Balance,Gait ,Activity Tolerance Progress Towards Goals Progressing Toward Goals Assessment Summary Pt with c/o nausea due to pain required standing rest breaks during gait. Pt able to perform HS at edge of chair with good ROM >90 degress. Pt main issue is pain control and nausea. Goals Bed Mobility Goal Standby Assistance Transfer Goal Standby Assistance,Front Wheeled Walker Gait Goal Standby Assistance,Front Wheel Walker Gait Distance 100 Other Goals 5 MACRINA with B rails Days to Meet Goals 5 Frequency of Treatment Frequency Of Treatment Twice a Day Treatment Plan Physical Therapy Treatment Plan Bed Mobility Training,Transfer Training,Gait Training, Therapeutic Exercise,Balance Retraining,Post Op Education, Discharge Planning,Hot or Cold Pack,Neuromuscular Re-ed Other Recommendations and Next Treatment mobility as jeramie Focus stair climbing with B rails if possible CG training Recommendations To Nursing Amount of Assist Needed Standby Assistance Discharge Recommendations PT Discharge Recommendations Home with Assistance,Home Health,SNF Rehab Equipment Needed for Home Before shower seat/ shower bench Discharge since Pt has a narrow shower tub
--- NOTE | 2019-03-02 11:26 | PC.NURSE ---
Shift summary: Alert and oriented X3. Pain in R knee well-managed with meds ordered, rates 2/10 at this time. Aaron wrap removed from R knee prior to shower, Aquacel dressing is C/D/I. Aaron wrap left off per patient request. Lungs CTA, HRR. Using IS independently. Room air, VSS. Mobilizing quite well- SBA with FWW. Able to make needs known and calls appropriately. Resting back in bed now. Call light within reach, bed alarm on.
[2019-03-02 11:38] VITALS: BP 152/89; PULSE 72; RESP 16; TEMP 36.7; O2SAT 95
[2019-03-02] MEDS: ACETAMINOPHEN 325 MG TABLET 975 MG PO ×2 (12:14→21:24)
--- NOTE | 2019-03-02 13:20 | PT.IPTN ---
Current Diagnoses Morbid (severe) obesity due to excess calories (02/28/19) Obstructive sleep apnea (adult) (pediatric) (02/28/19) Johnson's esophagus without dysplasia (02/28/19) Gastric ulcer, unspecified as acute or chronic, without hemorrhage or perforation (02/28/19) Noninfective gastroenteritis and colitis, unspecified (02/28/19) Diverticulitis of intestine, part unspecified, without perforation or abscess without bleeding (02/28/19) Arthropathic psoriasis, unspecified (02/28/19) Unilateral primary osteoarthritis, right knee (02/28/19) Ankylosing spondylitis of lumbosacral region (02/28/19) Body mass index (BMI) 45.0-49.9, adult (02/28/19) Presence of left artificial knee joint (02/28/19) Presence of unspecified artificial knee joint (02/28/19) Surgery Performed Operation Date: 02/28/19 11:45 Actual Procedures p Total Knee Arthroplasty(Right) - Koko Hylton MD Physical Therapy Treatment Note M2 PT-IP Current Condition Start: 02/28/19 16:45 Freq: NEEDED Status: Active Protocol: Document 02/28/19 16:55 HH (Rec: 02/28/19 18:15 HH [id number]) Physical Therapy Current Condition Current Condition Evaluation Date 02/28/19 Treatment Diagnosis R TKA, difficulty in walking Onset Date 02/28/19 Weight Bearing Status Weight Bearing Status Weight Bear as Tolerated M3 PT-IP Subjective Start: 02/28/19 16:45 Freq: NEEDED Status: Active Protocol: Document 03/02/19 13:09 AW (Rec: 03/02/19 13:20 AW [id number]) Subjective Physical Therapy Visit Type Type Treatment Note Visit Start Time 12:47 Visit Stop Time 13:05 Total Visit Minutes 18 Number of HEAVY EQUIPMENT OPERATOR Visits 0 Physical Therapy Visit Comments Patient Comments Pt in bed, tired, but willing to work with therapy since she got pain meds 40 minutes ago. Patient Goals D/C to SNF Therapy Pain Assessment Pain When Pain Assessed During Mobility Pain Present Pain Present Pain Reported Location Right Knee Intensity 7 Scale Used Numeric (1 - 10) Pain Management Techniques Apply Cold,Elevation,Re- positioning,Timing of Activity with Medications M4 PT-IP Mobility and Gait Start: 02/28/19 16:45 Freq: NEEDED Status: Active Protocol: Document 03/02/19 13:09 AW (Rec: 03/02/19 13:20 AW [id number]) PT-Bed Mobility Assessment Supine to Sit Supine to Sit Contact Guard Assistance Sit to Supine Sit to Supine Contact Guard Assistance Scooting Scooting to Edge of Bed Contact Guard Assistance Scooting Up and Down in Bed Minimal Assistance PT-Transfer Assessment Sit to and From Stand Sit to and from Stand Standby Assistance,Use of Upper Extremities Equipment Transfer Assistive Device Gait Belt,Front Wheeled Walker Orthotic/Prosthetic Devices or Brace: No Transfers Transfer Destination Bed Transfer Technique pt ambulated with FWW Transfer Ability Level of Assist Standby Assistance,Use of Upper Extremities Comments Mobility Comments Pt required no more than CGA for bed mobility except for scooting up and down in bed, for which she needed min A due to pain. Gait Assessment Gait Gait Assistance Required: Standby Assistance Distance (Feet) 100 Able to Maintain Weight Bearing Status Yes During Gait Assistive Devices Assistive Device Gait Belt,Front Wheeled Walker Gait Deviations General Gait Pattern Decreased Feet Clearance Factors Limiting Gait Function Factors Limiting Gait Function Decreased Activity Tolerance, Decreased Strength,Limited Range of Motion,Pain,Poor Balance Comments Gait Comments Pt ambulated 100 feet x 2 with w/c follow and with seated rest break at 100 feet. No complaints of lightheadedness or nausea. Pain better controlled than during morning session. Pt demonstrated good swing-through pattern and responded well to cues for heel strike at initial contact . Stair Climbing Assessment Comments Stair Climbing Comments pt declined. M5 PT-IP Objective Assessments Start: 02/28/19 16:45 Freq: NEEDED Status: Active Protocol: Document 02/28/19 16:55 (Rec: 02/28/19 18:15 HH [id number]) Orientation Orientation/Cognition Level of Alertness Alert Orientation Name,Age,Birthday,Month,Date, Year,Day of Week,Place, Situation Language Function Ability No Deficits Noted Safety Awareness Understands Safety Issues Memory Description No Deficits Noted Gross Range of Motion Upper Extremity ROM Assessment Within Functional Limits Lower Extremity ROM Assessment Right Impaired Impairments knee AROM 5-100 degrees Coordination Assessment Gross Coordination Gross Coordination WNL Sensation Assessment Sensation Gross Sensation WNL Muscle Tone Muscle Tone WNL Yes M6 PT-IP Treatment Start: 02/28/19 16:45 Freq: NEEDED Status: Active Protocol: Document 03/02/19 13:09 AW (Rec: 03/02/19 13:20 AW [id number]) Physical Therapy Treatment Exercises Exercises Ankle Pumps,Quad Sets,Heel Slides,Passive Knee Extension Hang Other Treatments Other Treatment Performed SCD's placed on pt bilaterally and turned on. M7 PT-IP Assessment and Plan Start: 02/28/19 16:45 Freq: NEEDED Status: Active Protocol: Document 03/02/19 13:09 AW (Rec: 03/02/19 13:20 AW [id number]) PT Summary Assessment and Plan Potential Rehabilitation Potential Excellent Status of Condition at Evaluation Stable Summary Impairments Pain,ROM,Strength,Balance,Gait ,Activity Tolerance Progress Towards Goals Progressing Toward Goals Assessment Summary Pt progressed gait distance with no symptoms, reporting better pain control. She continues to show good effort with therapy and will benefit from a short term stay for SNF rehab. Pt's partner in room during session. Did not engage in caregiver training. Goals Bed Mobility Goal Standby Assistance Transfer Goal Standby Assistance,Front Wheeled Walker Gait Goal Standby Assistance,Front Wheel Walker Gait Distance 100 Other Goals 5 MACRINA with B rails Days to Meet Goals 5 Frequency of Treatment Frequency Of Treatment Twice a Day Treatment Plan Physical Therapy Treatment Plan Bed Mobility Training,Transfer Training,Gait Training, Therapeutic Exercise,Balance Retraining,Post Op Education, Discharge Planning,Hot or Cold Pack,Neuromuscular Re-ed Other Recommendations and Next Treatment mobility as jeramie Focus stair climbing with B rails if possible CG training Recommendations To Nursing Amount of Assist Needed Standby Assistance Discharge Recommendations PT Discharge Recommendations Home with Assistance,Home Health,SNF Rehab Equipment Needed for Home Before shower seat/ shower bench Discharge since Pt has a narrow shower tub
[2019-03-02 15:10] VITALS: BP 154/97; PULSE 81; RESP 16; TEMP 37.1; O2SAT 95
[2019-03-02 20:11] VITALS: BP 149/85; PULSE 80; TEMP 36.9
[2019-03-02] MEDS: CITALOPRAM 10 MG TABLET PO (21:24)
[2019-03-03 00:50] VITALS: BP 150/84; PULSE 70; RESP 16; TEMP 36.5
[2019-03-03] MEDS: IBUPROFEN 400 MG TABLET PO ×3 (01:17→11:16)
[2019-03-03] MEDS: OXYCODONE IR 5 MG TABLET PO ×6 (03:43→22:18)
[2019-03-03 04:12] VITALS: BP 151/96; PULSE 72; RESP 16; TEMP 36.3; O2SAT 96
[2019-03-03] MEDS: PANTOPRAZOLE 20 MG TABLET PO (07:01)
[2019-03-03 07:35] VITALS: BP 172/85; PULSE 71; RESP 18; TEMP 36.4; O2SAT 97
[2019-03-03] MEDS: ACETAMINOPHEN 325 MG TABLET 975 MG PO ×3 (08:12→20:47)
[2019-03-03] MEDS: ASPIRIN EC 81 MG TABLET PO ×2 (08:12→20:48)
[2019-03-03] MEDS: SODIUM CHLORIDE 0.9% FLUSH 10 ML IV ×2 (08:13→20:48)
--- NOTE | 2019-03-03 09:16 | PT.IPTN ---
Current Diagnoses Morbid (severe) obesity due to excess calories (02/28/19) Obstructive sleep apnea (adult) (pediatric) (02/28/19) Johnson's esophagus without dysplasia (02/28/19) Gastric ulcer, unspecified as acute or chronic, without hemorrhage or perforation (02/28/19) Noninfective gastroenteritis and colitis, unspecified (02/28/19) Diverticulitis of intestine, part unspecified, without perforation or abscess without bleeding (02/28/19) Arthropathic psoriasis, unspecified (02/28/19) Unilateral primary osteoarthritis, right knee (02/28/19) Ankylosing spondylitis of lumbosacral region (02/28/19) Body mass index (BMI) 45.0-49.9, adult (02/28/19) Presence of left artificial knee joint (02/28/19) Presence of unspecified artificial knee joint (02/28/19) Surgery Performed Operation Date: 02/28/19 11:45 Actual Procedures p Total Knee Arthroplasty(Right) - Koko Hylton MD Physical Therapy Treatment Note M2 PT-IP Current Condition Start: 02/28/19 16:45 Freq: NEEDED Status: Active Protocol: Document 02/28/19 16:55 HH (Rec: 02/28/19 18:15 HH [id number]) Physical Therapy Current Condition Current Condition Evaluation Date 02/28/19 Treatment Diagnosis R TKA, difficulty in walking Onset Date 02/28/19 Weight Bearing Status Weight Bearing Status Weight Bear as Tolerated M3 PT-IP Subjective Start: 02/28/19 16:45 Freq: NEEDED Status: Active Protocol: Document 03/03/19 08:49 CLB (Rec: 03/03/19 09:27 CLB [id number]) Subjective Physical Therapy Visit Type Type Treatment Note Visit Start Time 08:49 Visit Stop Time 09:16 Total Visit Minutes 27 Number of SERVICE STATION CONSOLE OPERATOR Visits 1 Physical Therapy Visit Comments Patient Comments Pt willing to do therapy. Patient Goals D/C to SNF Therapy Pain Assessment Pain When Pain Assessed During Mobility Pain Present Pain Present Pain Reported Location Right Knee Scale Used did not state Description Aching,Crushing Pain Management Techniques Apply Cold,Elevation,Re- positioning,Timing of Activity with Medications M4 PT-IP Mobility and Gait Start: 02/28/19 16:45 Freq: NEEDED Status: Active Protocol: Document 03/03/19 08:49 CLB (Rec: 03/03/19 09:27 CLB [id number]) PT-Transfer Assessment Sit to and From Stand Sit to and from Stand Standby Assistance,Use of Upper Extremities Equipment Transfer Assistive Device Gait Belt,Front Wheeled Walker Orthotic/Prosthetic Devices or Brace: No Transfers Transfer Destination Chair,Toilet Transfer Technique pt ambulated with FWW Transfer Ability Level of Assist Standby Assistance,Use of Upper Extremities Gait Assessment Gait Gait Assistance Required: Standby Assistance Distance (Feet) 150 Able to Maintain Weight Bearing Status Yes During Gait Assistive Devices Assistive Device Gait Belt,Front Wheeled Walker Gait Deviations General Gait Pattern Decreased Feet Clearance Factors Limiting Gait Function Factors Limiting Gait Function Decreased Activity Tolerance, Decreased Strength,Limited Range of Motion,Pain,Poor Balance Comments Gait Comments Pt ambulated w/o the need for rest breaks using step through gait pattern with cues for heel strike. Stair Climbing Assessment Comments Stair Climbing Comments pt declined. M5 PT-IP Objective Assessments Start: 02/28/19 16:45 Freq: NEEDED Status: Active Protocol: Document 02/28/19 16:55 HH (Rec: 02/28/19 18:15 HH [id number]) Orientation Orientation/Cognition Level of Alertness Alert Orientation Name,Age,Birthday,Month,Date, Year,Day of Week,Place, Situation Language Function Ability No Deficits Noted Safety Awareness Understands Safety Issues Memory Description No Deficits Noted Gross Range of Motion Upper Extremity ROM Assessment Within Functional Limits Lower Extremity ROM Assessment Right Impaired Impairments knee AROM 5-100 degrees Coordination Assessment Gross Coordination Gross Coordination WNL Sensation Assessment Sensation Gross Sensation WNL Muscle Tone Muscle Tone WNL Yes M6 PT-IP Treatment Start: 02/28/19 16:45 Freq: NEEDED Status: Active Protocol: Document 03/03/19 08:49 CLB (Rec: 03/03/19 09:27 CLB [id number]) Physical Therapy Treatment Exercises Exercises Ankle Pumps,Quad Sets,Heel Slides,Short Arc Quads M7 PT-IP Assessment and Plan Start: 02/28/19 16:45 Freq: NEEDED Status: Active Protocol: Document 03/03/19 08:49 CLB (Rec: 03/03/19 09:27 CLB [id number]) PT Summary Assessment and Plan Potential Rehabilitation Potential Excellent Status of Condition at Evaluation Stable Summary Impairments Pain,ROM,Strength,Balance,Gait ,Activity Tolerance Progress Towards Goals Progressing Toward Goals Assessment Summary Pt with better pain control able to ambulate w/FWW/SBA ~ 150ft w/o rest breaks. Pt has visible rash on RLE. Pt will benefit from SNF rehab as she has no assist at home and pt will benefit from strengthening and increased activity tolerance for functional mobility. Goals Bed Mobility Goal Standby Assistance Transfer Goal Standby Assistance,Front Wheeled Walker Gait Goal Standby Assistance,Front Wheel Walker Gait Distance 100 Other Goals 5 MACRINA with B rails Days to Meet Goals 5 Frequency of Treatment Frequency Of Treatment Twice a Day Treatment Plan Physical Therapy Treatment Plan Bed Mobility Training,Transfer Training,Gait Training, Therapeutic Exercise,Balance Retraining,Post Op Education, Discharge Planning,Hot or Cold Pack,Neuromuscular Re-ed Recommendations To Nursing Amount of Assist Needed Standby Assistance Discharge Recommendations PT Discharge Recommendations Home with Assistance,Home Health,SNF Rehab Equipment Needed for Home Before shower seat/ shower bench Discharge since Pt has a narrow shower tub
--- NOTE | 2019-03-03 10:50 | DI.US.S_ITS ---
PROCEDURE: US PERIPH VENOUS LOW EXTREM RT INDICATIONS: EDEMA TECHNIQUE: Real-time imaging, as well as color and pulse Doppler interrogation, were performed of the lower extremity deep veins from the inguinal ligament to the popliteal fossa. COMPARISON: None. FINDINGS: The common femoral, femoral and popliteal veins are normally compressible, and free of intraluminal thrombus. Color and pulse Doppler demonstrate normal phasic intraluminal flow. There is normal augmentation response to distal compression maneuver. IMPRESSION: Negative for deep venous thrombosis. Dictated by: Og Wesley M.D. on 03/03/2019 at 10:21 Approved by: Og Wesley M.D. on 03/03/2019 at 10:23
--- NOTE | 2019-03-03 10:59 | PM.PN.1 ---
Subjective Subjective Date Patient Seen: 03/03/19 Time Patient Seen: 10:59 Interval history: Patient is POD#3 s/p right TKA by Dr. Hylton. Pain control has improved with administration of regular schedule. She continues to mobilize with PT as tolerated. New blanching area of redness about the knee and lower leg. She states this is not painful, possible mild itch. No chest pain, shortness of breath, nausea or vomiting. Exam Vital Signs (past 8 hours): - 03/03/19 04:12 03/03/19 07:35 Temperature 97.4 F L 97.6 F Pulse Rate 72 71 Respiratory Rate 16 18 Blood Pressure 151/96 H 172/85 H Pulse Oximetry 96 97 Oxygen Delivery Method Room Air,CPAP Oxygen Flow Rate 0 Narrative Exam Narrative: 73 year old female resting comfortably in bed. Alert and oriented, in no acute distress. Aquacel dressing in place over right knee, small areas of shadow drainage. Blanching area of erythema from mid dressing into the lower leg. Area of point tenderness in calf. Patient able to flex/extend the ankle. Palpable pedal pulse. Objective Labs Result Diagrams: 03/01/19 06:37 Assessment & Plan Assessment & Plan narrative: Patient continues to progress post operatively. Continue schedule for pain control. RLE US ordered due to new calf swelling/erythema and pain.Likely discharge to SNF tomorrow. Quality VTE Deep Vein Thrombosis/Pulmonary Embolism Present on Admission: No
[2019-03-03 11:15] VITALS: BP 153/95; PULSE 76; RESP 16; TEMP 36.4; O2SAT 95
--- NOTE | 2019-03-03 11:41 | PC.NURSE ---
Day shift: Pt made aware that US was neg for DVT.
--- NOTE | 2019-03-03 13:32 | PT.IPTN ---
Current Diagnoses Morbid (severe) obesity due to excess calories (02/28/19) Obstructive sleep apnea (adult) (pediatric) (02/28/19) Johnson's esophagus without dysplasia (02/28/19) Gastric ulcer, unspecified as acute or chronic, without hemorrhage or perforation (02/28/19) Noninfective gastroenteritis and colitis, unspecified (02/28/19) Diverticulitis of intestine, part unspecified, without perforation or abscess without bleeding (02/28/19) Arthropathic psoriasis, unspecified (02/28/19) Unilateral primary osteoarthritis, right knee (02/28/19) Ankylosing spondylitis of lumbosacral region (02/28/19) Body mass index (BMI) 45.0-49.9, adult (02/28/19) Presence of left artificial knee joint (02/28/19) Presence of unspecified artificial knee joint (02/28/19) Surgery Performed Operation Date: 02/28/19 11:45 Actual Procedures p Total Knee Arthroplasty(Right) - Koko Hylton MD Physical Therapy Treatment Note M2 PT-IP Current Condition Start: 02/28/19 16:45 Freq: NEEDED Status: Active Protocol: Document 02/28/19 16:55 HH (Rec: 02/28/19 18:15 HH [id number]) Physical Therapy Current Condition Current Condition Evaluation Date 02/28/19 Treatment Diagnosis R TKA, difficulty in walking Onset Date 02/28/19 Weight Bearing Status Weight Bearing Status Weight Bear as Tolerated M3 PT-IP Subjective Start: 02/28/19 16:45 Freq: NEEDED Status: Active Protocol: Document 03/03/19 13:06 CLB (Rec: 03/03/19 13:41 CLB [id number]) Subjective Physical Therapy Visit Type Type Treatment Note Visit Start Time 13:06 Visit Stop Time 13:32 Total Visit Minutes 26 Number of ELECTRONIC MUSICAL INSTRUMENT REPAIRER Visits 2 Physical Therapy Visit Comments Patient Comments Pt willing to do therapy. Patient Goals D/C to SNF Therapy Pain Assessment Pain When Pain Assessed During Mobility Pain Present Pain Present Pain Reported Location Right Knee Scale Used did not state Pain Management Techniques Apply Cold,Elevation,Re- positioning,Timing of Activity with Medications M4 PT-IP Mobility and Gait Start: 02/28/19 16:45 Freq: NEEDED Status: Active Protocol: Document 03/03/19 13:06 CLB (Rec: 03/03/19 13:41 CLB [id number]) PT-Bed Mobility Assessment Supine to Sit Supine to Sit Standby Assistance Sit to Supine Sit to Supine Standby Assistance Scooting Scooting to Edge of Bed Standby Assistance Scooting Up and Down in Bed Standby Assistance PT-Transfer Assessment Sit to and From Stand Sit to and from Stand Standby Assistance,Use of Upper Extremities Equipment Transfer Assistive Device Gait Belt,Front Wheeled Walker Orthotic/Prosthetic Devices or Brace: No Transfers Transfer Destination Bed,Toilet Transfer Technique pt ambulated with FWW Transfer Ability Level of Assist Standby Assistance,Use of Upper Extremities Comments Mobility Comments Pt is SBA for all mobility. Gait Assessment Gait Gait Assistance Required: Standby Assistance Distance (Feet) 175 Able to Maintain Weight Bearing Status Yes During Gait Gait Deviations General Gait Pattern Decreased Feet Clearance Factors Limiting Gait Function Factors Limiting Gait Function Decreased Activity Tolerance, Decreased Strength,Limited Range of Motion,Pain,Poor Balance Stair Climbing Assessment Comments Stair Climbing Comments pt declined. M5 PT-IP Objective Assessments Start: 02/28/19 16:45 Freq: NEEDED Status: Active Protocol: Document 02/28/19 16:55 HH (Rec: 02/28/19 18:15 HH [id number]) Orientation Orientation/Cognition Level of Alertness Alert Orientation Name,Age,Birthday,Month,Date, Year,Day of Week,Place, Situation Language Function Ability No Deficits Noted Safety Awareness Understands Safety Issues Memory Description No Deficits Noted Gross Range of Motion Upper Extremity ROM Assessment Within Functional Limits Lower Extremity ROM Assessment Right Impaired Impairments knee AROM 5-100 degrees Coordination Assessment Gross Coordination Gross Coordination WNL Sensation Assessment Sensation Gross Sensation WNL Muscle Tone Muscle Tone WNL Yes M6 PT-IP Treatment Start: 02/28/19 16:45 Freq: NEEDED Status: Active Protocol: Document 03/03/19 13:06 CLB (Rec: 03/03/19 13:41 CLB [id number]) Physical Therapy Treatment Exercises Exercises Ankle Pumps,Quad Sets,Heel Slides,Straight Leg Raises, Short Arc Quads Other Treatments Other Treatment Performed SCD's placed on pt LLE and turned on. M7 PT-IP Assessment and Plan Start: 02/28/19 16:45 Freq: NEEDED Status: Active Protocol: Document 03/03/19 13:06 CLB (Rec: 03/03/19 13:41 CLB [id number]) PT Summary Assessment and Plan Potential Rehabilitation Potential Excellent Status of Condition at Evaluation Stable Summary Impairments Pain,ROM,Strength,Balance,Gait ,Activity Tolerance Progress Towards Goals Progressing Toward Goals Assessment Summary Pt is SBA for all mobility and was able to increase gait distance. Goals Bed Mobility Goal Standby Assistance Transfer Goal Standby Assistance,Front Wheeled Walker Gait Goal Standby Assistance,Front Wheel Walker Gait Distance 100 Other Goals 5 MACRINA with B rails Days to Meet Goals 5 Frequency of Treatment Frequency Of Treatment Twice a Day Treatment Plan Physical Therapy Treatment Plan Bed Mobility Training,Transfer Training,Gait Training, Therapeutic Exercise,Balance Retraining,Post Op Education, Discharge Planning,Hot or Cold Pack,Neuromuscular Re-ed Recommendations To Nursing Amount of Assist Needed Standby Assistance Discharge Recommendations PT Discharge Recommendations Home with Assistance,Home Health,SNF Rehab Equipment Needed for Home Before shower seat/ shower bench Discharge since Pt has a narrow shower tub
[2019-03-03 15:39] VITALS: BP 143/87; PULSE 74; RESP 20; TEMP 36.6; O2SAT 97
[2019-03-03 19:50] VITALS: BP 140/90; PULSE 74; RESP 21; TEMP 36.3; O2SAT 97
[2019-03-03] MEDS: CITALOPRAM 10 MG TABLET PO (20:48)
[2019-03-04] MEDS: IBUPROFEN 400 MG TABLET PO ×4 (00:40→14:05)
[2019-03-04 00:55] VITALS: BP 127/74; PULSE 75; RESP 16; TEMP 35.8; O2SAT 94
--- NOTE | 2019-03-04 00:57 | PC.NURSE ---
Patient's right lower extremity from the knee to the benites is red, swollen and hot to the touch. The Aquacel dressing on the right knee has some shadow drainage present approximately 6 inches long and .25 inches wide (edges lined with a marker).
[2019-03-04] MEDS: PANTOPRAZOLE 20 MG TABLET PO (05:41)
[2019-03-04] MEDS: OXYCODONE IR 5 MG TABLET PO ×3 (05:44→14:03)
[2019-03-04 07:40] VITALS: BP 144/87; PULSE 73; RESP 16; TEMP 35.9; O2SAT 94
[2019-03-04] MEDS: ACETAMINOPHEN 325 MG TABLET 975 MG PO ×2 (08:55→14:03)
[2019-03-04] MEDS: ASPIRIN EC 81 MG TABLET PO (08:56)
--- NOTE | 2019-03-04 10:10 | PT.IPTN ---
Current Diagnoses Morbid (severe) obesity due to excess calories (02/28/19) Obstructive sleep apnea (adult) (pediatric) (02/28/19) Johnson's esophagus without dysplasia (02/28/19) Gastric ulcer, unspecified as acute or chronic, without hemorrhage or perforation (02/28/19) Noninfective gastroenteritis and colitis, unspecified (02/28/19) Diverticulitis of intestine, part unspecified, without perforation or abscess without bleeding (02/28/19) Arthropathic psoriasis, unspecified (02/28/19) Unilateral primary osteoarthritis, right knee (02/28/19) Ankylosing spondylitis of lumbosacral region (02/28/19) Body mass index (BMI) 45.0-49.9, adult (02/28/19) Presence of left artificial knee joint (02/28/19) Presence of unspecified artificial knee joint (02/28/19) Surgery Performed Operation Date: 02/28/19 11:45 Actual Procedures p Total Knee Arthroplasty(Right) - Koko Hylton MD Physical Therapy Treatment Note M2 PT-IP Current Condition Start: 02/28/19 16:45 Freq: NEEDED Status: Active Protocol: Document 02/28/19 16:55 HH (Rec: 02/28/19 18:15 HH [id number]) Physical Therapy Current Condition Current Condition Evaluation Date 02/28/19 Treatment Diagnosis R TKA, difficulty in walking Onset Date 02/28/19 Weight Bearing Status Weight Bearing Status Weight Bear as Tolerated M3 PT-IP Subjective Start: 02/28/19 16:45 Freq: NEEDED Status: Active Protocol: Document 03/04/19 09:54 CLB (Rec: 03/04/19 10:18 CLB [id number]) Subjective Physical Therapy Visit Type Type Treatment Note Visit Start Time 09:54 Visit Stop Time 10:10 Total Visit Minutes 16 Number of SUTURE WINDER HAND Visits 3 Physical Therapy Visit Comments Patient Comments Pt willing to do therapy. Patient Goals D/C to SNF Therapy Pain Assessment Pain When Pain Assessed During Mobility Pain Present Pain Present Pain Reported Location Right Knee Scale Used did not state Pain Management Techniques Apply Cold,Elevation,Re- positioning,Timing of Activity with Medications M4 PT-IP Mobility and Gait Start: 02/28/19 16:45 Freq: NEEDED Status: Active Protocol: Document 03/04/19 09:54 CLB (Rec: 03/04/19 10:18 CLB [id number]) PT-Transfer Assessment Sit to and From Stand Sit to and from Stand Standby Assistance,Use of Upper Extremities Equipment Transfer Assistive Device Gait Belt,Front Wheeled Walker Orthotic/Prosthetic Devices or Brace: No Transfers Transfer Destination Chair Transfer Ability Level of Assist Standby Assistance,Use of Upper Extremities Gait Assessment Gait Gait Assistance Required: Standby Assistance Distance (Feet) 400 Able to Maintain Weight Bearing Status Yes During Gait Assistive Devices Assistive Device Gait Belt,Front Wheeled Walker Gait Deviations General Gait Pattern Decreased Feet Clearance Factors Limiting Gait Function Factors Limiting Gait Function Decreased Activity Tolerance, Decreased Strength,Limited Range of Motion,Pain Comments Gait Comments Pt increased ambulation to ~ 400ft w/FWW/SBA with step through gait pattern. Pt c/o pain in posterior knee towards end of ambulation. Stair Climbing Assessment Evaluation Level of Assist On Stairs Contact Guard Assistance Devices Stair Climbing Assistive Devices Left Railing,Right Railing Technique/Endurance Stair Climbing Direction Ascend and Descend Stair Climbing Technique Step to Step Number of Steps Climbed 3 Stair Climbing Set # Repetitions (reps) 1 Comments Stair Climbing Comments Pt able to climb three steps CGA. M5 PT-IP Objective Assessments Start: 02/28/19 16:45 Freq: NEEDED Status: Active Protocol: Document 02/28/19 16:55 HH (Rec: 02/28/19 18:15 HH [id number]) Orientation Orientation/Cognition Level of Alertness Alert Orientation Name,Age,Birthday,Month,Date, Year,Day of Week,Place, Situation Language Function Ability No Deficits Noted Safety Awareness Understands Safety Issues Memory Description No Deficits Noted Gross Range of Motion Upper Extremity ROM Assessment Within Functional Limits Lower Extremity ROM Assessment Right Impaired Impairments knee AROM 5-100 degrees Coordination Assessment Gross Coordination Gross Coordination WNL Sensation Assessment Sensation Gross Sensation WNL Muscle Tone Muscle Tone WNL Yes M6 PT-IP Treatment Start: 02/28/19 16:45 Freq: NEEDED Status: Active Protocol: Document 03/04/19 09:54 CLB (Rec: 03/04/19 10:18 CLB [id number]) Physical Therapy Treatment Exercises Exercises Quad Sets,Heel Slides,Straight Leg Raises,Seated Knee Flexion/Extension M7 PT-IP Assessment and Plan Start: 02/28/19 16:45 Freq: NEEDED Status: Active Protocol: Document 03/04/19 09:54 CLB (Rec: 03/04/19 10:18 CLB [id number]) PT Summary Assessment and Plan Potential Rehabilitation Potential Excellent Status of Condition at Evaluation Stable Summary Impairments Pain,ROM,Strength,Balance,Gait ,Activity Tolerance Progress Towards Goals Progressing Toward Goals Assessment Summary Pt continues to improve with all mobility able to increase ambulation distance this session and climbed stairs CGA . Goals Bed Mobility Goal Standby Assistance Transfer Goal Standby Assistance,Front Wheeled Walker Gait Goal Standby Assistance,Front Wheel Walker Gait Distance 100 Other Goals 5 MACRINA with B rails Days to Meet Goals 5 Frequency of Treatment Frequency Of Treatment Twice a Day Discharge Recommendations PT Discharge Recommendations Home with Assistance,Home Health,SNF Rehab Equipment Needed for Home Before shower seat/ shower bench Discharge since Pt has a narrow shower tub
--- NOTE | 2019-03-04 10:14 | CM.DPC ---
DCP/continued: Reviewed chart. Order obtained for patient to d/c to SNF today. Current plan is for patient to go to [facility]. Met with patient to confirm plan. Patient aware and agreeable. Asked HEALTHCARE NETWORK CONSULTANT/Aveilna to coordinate/finalize all d/c arrangements. No additional needs identified. P: [facility] today. JOSHUA Pope
--- NOTE | 2019-03-04 10:49 | CM.DPC ---
DCP Cont: Faxed singed meds and PASRR to [facility] at fax # [phone]. D/C summary to follow when completed by ortho. Avelina Merrill, Care Personal Care Attendant
--- NOTE | 2019-03-04 10:54 | P.DS_ITS ---
History of Present Illness History of Present Illness Date Patient Seen: 03/04/19 Chief complaint: [id number] Narrative: Please see HPI previously recorded in the chart. Discharge Providers Provider Date of admission: 02/28/19 09:41 Discharge Date: 03/04/19 Primary care physician: Lolita Quintero PA-C Consults: 02/28/19 14:45 Consult to Discharge Planning Routine Comment: Consult to Physical Therapy Evaluate & Treat Comment: Physician Instructions: postop TKA protocol Consult to Respiratory Therapy Evaluate & Treat Comment: Physician Instructions: Evaluate and treat Discharge provider: Татьяна Louis PA-C Summary Hospital Course Discharge Diagnosis: s/p right total knee arthroplasty Hospital Course: The patient is a 73 year old female who presented on 02/28/19 for total knee arthroplasty after failure of conservative treatment. The nature of the procedure including the risks and benefits, alternatives, postoperative course and expected outcome were discussed and all questions answered. Consent was obtained. Operative site confirmed and marked. After obtaining informed consent the patient was taken to the operating room w here she underwent a right total knee arthroplasty with Dr. Hylton which she tolerated well without complications. She was taken to the acute care floor where she has been progressing well, but slowly. She has mobilized with PT. Initially some issues with pain control but now under adequate control with Oxycodone and Ibuprofen scheduled. Continues to require assitance best suited for SNF rehab. Placement obtained. Scripts for Oxycodone, Ibuprofen, Vistaril provided. Patient is medically stable for discharge to [facility] later today. Status at Discharge Cognitive/behavioral status at discharge: oriented Functional status at discharge: uses cane/walker Overall status at discharge: patient is progressing back to baseline Exam Vital Signs (past 8 hours): - 03/04/19 07:40 Temperature 96.7 F L Pulse Rate 73 Respiratory Rate 16 Blood Pressure 144/87 H Pulse Oximetry 94 Oxygen Delivery Method Room Air Oxygen Flow Rate 0 Narrative Exam Narrative: 73 year old female resting comfortably in bed. Alert and oriented in no acute distress. Aquacel dressing in place over right knee. Some shadow drainage, so new dressing applied. Underlying incision is flat, dry. No visible drainage. Patient able to flex/extend the ankle. Palpable pedal pulse. Sensation intact to light touch. Calves soft, compressible. Objective Labs Result Diagrams: 03/01/19 06:37 Discharge Plan Discharge Plan Patient Disposition: SNF Transfer to: [facility] Consult as needed: Dental, Hearing, Podiatry and Vision Discharge Med Rec/Prescriptions Prescriptions: New acetaminophen 325 mg Tablet 975 mg PO TID Qty: 60 RF: 0 aspirin 81 mg Tablet,Delayed Release (Dr/Ec) 81 mg PO BID Qty: 60 RF: 0 ibuprofen 400 mg Tablet 400 mg PO Q4H PRN (Reason: Pain, Mild (1-3)) Qty: 30 RF: 1 oxycodone 5 mg Tablet 5 mg PO Q4H PRN (Reason: Pain, Moderate (4-6)) Qty: 50 RF: 0 hydroxyzine pamoate 25 mg Capsule 25 mg PO Q4HR PRN (Reason: Nausea) Qty: 20 RF: 0 Continued albuterol sulfate 90 mcg/actuation HFA aerosol inhaler 2 puff INHALATION Q4-6H PRN (Reason: shortness of breath) Qty: 8.5 RF: 1 potassium gluconate 99 MG tablet 2 tab PO HS Qty: 0 RF: 0 Remicade 100 mg Recon Soln 100 mg IV Q6W RF: 0 (DME) Resmed Airsense 10 CPAP Qty: 1 RF: 0 citalopram 10 mg tablet 10 mg PO BEDTIME RF: 0 Prilosec OTC 20 mg tablet,delayed release (DR/EC) 20 mg PO BEDTIME RF: 0 Carditone 1 tab PO DAILY RF: 0 Discontinued acetaminophen [Tylenol Extra Strength] 500 MG tablet 1,000 mg PO HS Qty: 0 RF: 0 naproxen sodium [Aleve] 220 mg Capsule 660 mg PO BEDTIME RF: 0 Follow up/Referrals: Lolita Quintero PA-C [Primary Care Provider] - Koko Hylton MD [Physician] - Discharge Health Status Brief summary of current health status: Patient with PMH of obesity, DAYANA, oestoarthritis, Johnson's esophagus in her usual state of health, POD#4 s/p right total knee arthroplasty. Precautions: [place] Provider Discharge Instructions Diet: Diet as Tolerated Liquid consistency: Normal/Thin Food texture: Regular Activity: Patient may weight bear as tolerated. Please use front wheel walker for support. Cold/Heat Therapy: Ice packs as needed. Skin/Wound/Dressing Care Report to your healthcare provider any signs of infection, such as:: chills, fever, night sweats, unusual drainage and unusual redness Dressing: Dressing is to remain in place until 2 week post operative visit. If dressing becomes saturated please call the office. [facility] Reason for rehabilitation: Post-operative therapy Rehab type: Physical therapy and Occupational therapy Visit Report/Discharge Packet Instructions: DI for Knee Replacement Stand Alone Forms: Surgery Discharge Discharge Data Primary Care Provider: Lolita Quintero VTE Deep Vein Thrombosis/Pulmonary Embolism Present on Admission: No
--- NOTE | 2019-03-04 12:16 | CM.DPC ---
DCP Cont: Faxed discharge summary to [facility] at fax # [phone]. Fax confirmation scanned in. Avelina Merrill, [facility] Director Broadcast
--- NOTE | 2019-03-04 14:47 | PC.NURSE ---
Day shift: Report given to SNF RN.
--- NOTE | 2019-03-04 14:58 | PC.NURSE ---
Day shift: Pt left unit to SNF via WC by SNF person. Pt has all personal belongings and SNF person has SNF packet.
== END 2019-03-04 15:00 | DRG 470 ==
PROVIDERS: Admitting Provider Orthopaedic Surgery; Family Provider Student in an Organized Health Care Education/Training Program; PCP Student in an Organized Health Care Education/Training Program; Visit Provider Orthopaedic Surgery
PROC: 0SRC0JZ Replacement of Right Knee Joint with Synthetic Substitute, Open Approach (ICD-10-PCS; CPT 27447; principal; 2019-02-28 11:45)
DX: M17.11 Unilateral primary osteoarthritis, right knee (principal); Z68.41 Body mass index [BMI] 40.0-44.9, adult; Z96.652 Presence of left artificial knee joint; E66.01 Morbid (severe) obesity due to excess calories; L40.50 Arthropathic psoriasis, unspecified; G47.33 Obstructive sleep apnea (adult) (pediatric); G89.18 Other acute postprocedural pain
CPT/HCPCS: 36415; 73560; 85014; 85018; 93971; 94762; 97110; 97116; 97161; 97530; C1776; C9290; J0690; J1100; J2250; J2274; J2405; J2704; J3010

== ENCOUNTER → 2020-01-20 06:52 | Outpatient (CLI) | payer MEDICARE, SELFPAY ==
[2019-08-28 12:47] VITALS: BMI 44.9
--- NOTE | 2020-01-20 | DI.US.S_ITS ---
PROCEDURE: US PERIPH VENOUS LOW EXTREM LT INDICATIONS: LEFT LEG SWELLING TECHNIQUE: Real-time imaging, as well as color and pulse Doppler interrogation, were performed of the lower extremity deep veins from the inguinal ligament to the popliteal fossa. COMPARISON: [facility], PVE UNILATERAL LEFT, 07/08/2016, 9:50. [facility], US PERIPH VENOUS LOW EXTREM RT, 03/03/2019, 11:07. FINDINGS: The common femoral, femoral and popliteal veins are normally compressible, and free of intraluminal thrombus. Color and pulse Doppler demonstrate normal phasic intraluminal flow. There is normal augmentation response to distal compression maneuver. IMPRESSION: No DVT in the left lower extremity. Dictated by: Magi Hernandez M.D. on 01/20/2020 at 10:01 Approved by: Magi Hernandez M.D. on 01/20/2020 at 10:02
== END ==
PROVIDERS: Family Provider Student in an Organized Health Care Education/Training Program; PCP Student in an Organized Health Care Education/Training Program; Referring Provider Student in an Organized Health Care Education/Training Program; Visit Provider Student in an Organized Health Care Education/Training Program
DX: M79.89 Other specified soft tissue disorders (principal)
CPT/HCPCS: 93971

== ENCOUNTER → 2020-01-29 06:53 | Outpatient (CLI) | payer MEDICARE, SELFPAY ==
[2019-08-28 12:47] VITALS: BMI 44.9
--- NOTE | 2020-01-29 | DI.ECHO.S_ITS ---
[facility] +---------+ : : [address] [place] : : : : [id number] : : : : Phone: [phone] Echocardiogram Report + + :Name: GREGORY MCMANUS Study Date: 01/29/2020 Height: 51 in : :[facility] Weight: 240 lb : : Gender: Female BSA: 1.8 m2 : :: 1945 Age: 74 yrs BP: 146/98 mmHg: :Reason For Study: LEFT LEG SWELLING : : Performed By: Francie Keen : :Referring: ECHO [place] : + + Interpretation Summary Normal sinus rhythm. Normal LV size and wall thickness. Normal wall motion and LV systolic function. EF is 60-65%. Normal chamber sizes. Mild MAC; otherwise normal valvular structure and function. No prior study available for comparison. Procedure: A two-dimensional transthoracic echocardiogram with color flow and Doppler was performed. The study quality was technically difficult. There is no prior echocardiogram noted for this patient. The patient was in sinus rhythm with heart rates between 73-81 bpm during the exam. Left Ventricle: The left ventricle is normal in size and wall thickness. The ejection fraction is estimated to be 60-65%. Diastolic parameters suggest probable normal left ventricular diastolic function and normal filling pressures. Right Ventricle: The right ventricle is normal in size and function. Atria: Both atria are normal in size. There is no Doppler evidence for an interatrial shunt. Mitral Valve: There is mild mitral annular calcification. The mitral valve is normal in structure and function. There is trace mitral regurgitation. Aortic Valve: The aortic valve is trileaflet. The aortic valve opens well. There is no aortic valve stenosis. No aortic regurgitation is present. Tricuspid Valve: The tricuspid valve is not well visualized, but is grossly normal. Pulmonary artery pressures cannot be estimated because of the lack of a measurable TR jet velocity but the IVC suggests a CVP of around 8 mmHg. There is trace tricuspid regurgitation. Pulmonic Valve: The pulmonic valve is not well visualized. There is no pulmonic valvular regurgitation. Great Vessels: The aortic root is normal size. The ascending aorta could not be visualized. The IVC is dilated (diameter is greater than 2.1 cm) yet it collapses greater than 50% with a sniff. This suggests a right atrial pressure of 8 mm Hg. Pericardium/ Pleura There is no pericardial effusion. There is an anterior echo-free space consistent with a fat pad. There is no pleural effusion. MMode/2D Measurements & Calculations LVIDd: 2.9 cm LVOT diam: 2.1 cm LVIDs: 2.0 cm Ao root diam: 3.4 cm FS: 32.9 % Ao Arch Diam (Prox Trans): 2.6 cm IVSd: 0.81 cm LVPWd: 0.86 cm LV lowry. diameter/BSA (cm/m^2): 1.6 LV sys. diameter/BSA (cm/m^2): 1.1 LA A2 area: 19.3 cm2 RA long axis: 4.6 cm LA A4 area: 18.9 cm2 RA area: 12.6 cm2 LA length (vol): 5.8 cm RA vol: 29.2 ml LA vol: 53.4 ml RA : 16.3 ml/m2 LA vol index: 29.8 ml/m2 IVC diam: 2.0 cm RVD1 (basal): 3.0 cm TAPSE: 1.8 cm Doppler Measurements & Calculations Ao V2 max: 131.6 cm/sec LVOT Max Juve: 104.4 cm/sec Ao V2 mean: 88.3 cm/sec LV V1 max P.4 mmHg Ao max P.9 mmHg LV V1 VTI: 23.8 cm Ao mean P.6 mmHg ROSIE(I,D): 2.9 cm2 Ao V2 VTI: 27.6 cm ROSIE(V,D): 2.7 cm2 sev ratio: 0.86 ROSIE indexed to BSA (cm^2/m^2): 1.6 MV E max juve: 95.6 cm/sec PA V2 max: 68.4 cm/sec MV A max juve: 111.7 cm/sec PA V2 mean: 46.8 cm/sec MV E/A: 0.86 PA mean P.0 mmHg Med Peak E' Juve: 7.1 cm/sec PA pr(Accel): 36.2 mmHg E/E' med: 13.5 Lat Peak E' Juve: 7.5 cm/sec E/E' lat: 12.7 E/e' average: 13.1 MV dec time: 0.26 sec SV(LVOT): 80.8 ml Electronically signed by: Isabel Jorgensen M.D. on Reading Physician:01/29/2020 10:02 PM
[2020-01-29 08:50] LABS: Add Manual Diff / Slide Review NO; Basophils Absolute Auto 0 /uL (0-100); Basophils Percent Auto 0.6 % (0-2); Eosinophils Absolute Auto 200 /uL (0-450); Eosinophils Percent Auto 3.4 % (2-4); Hematocrit 42.3 % (36-46); Hemoglobin 14.4 g/dL (12.0-16.0); Lymphocytes Absolute Auto 1500 /uL (1100-4500); Lymphocytes Percent Auto 29.5 % (25-40); Mean Corpuscular Hemoglobin 29.1 PG (26-34); Mean Corpuscular Volume 85.6 fL (80-100); Monocytes Absolute Auto 500 /uL (0-900); Monocytes Percent Auto 10.7 % (3-14); Neutrophils Absolute Auto 2800 /uL (1500-7000); Neutrophils Percent Auto 55.8 % (50-75); Platelet Count 200 X10^3/uL (150-400); Red Blood Cell Count 4.94 X10^6/uL (4.0-5.2); Red Cell Distribution Width 14.2 % (11.6-14.8)
[2020-01-29 09:40] LABS: Alanine Aminotransferase 23 IU/L (<35); Albumin 4.2 g/dL (3.5-5.0); Albumin Globulin Ratio 1.4 (1.0-2.8); Alkaline Phosphatase 89 U/L (38-126); Aspartate Aminotransferase 25 IU/L (14-36); BUN Creatinine Ratio 40.5 (6-22); Bilirubin Total 0.6 mg/dL (0.2-1.3); Blood Urea Nitrogen 30 mg/dL (7-17); Calcium 10.6 mg/dL (8.4-10.2); Carbon Dioxide 29 mmol/L (22-32); Chloride 106 mmol/L (98-107); Cholesterol 237 mg/dL (140-199); Estimated Glomerular Filt Rate > 60.0 mL/min (>60); Globulin 3.1 g/dL (1.7-4.1); Glucose 108 mg/dL (80-110); HDL Cholesterol 49 mg/dL (40-60); HEMOLYSIS < 15 (0-50); LDL Cholesterol Calculated 135 mg/dL (<100); Potassium 5.1 mmol/L (3.4-5.1); Sodium 142 mmol/L (137-145); Total Protein 7.3 g/dL (6.3-8.2); Triglycerides 266 mg/dL (35-150)
[2020-01-29 09:49] LABS: NT-proBNP (BNP-Adult 18+) 31 pg/mL (<450)
== END ==
PROVIDERS: Family Provider Student in an Organized Health Care Education/Training Program; PCP Student in an Organized Health Care Education/Training Program; Referring Provider Student in an Organized Health Care Education/Training Program; Visit Provider Student in an Organized Health Care Education/Training Program
DX: M79.89 Other specified soft tissue disorders (principal)
CPT/HCPCS: 36415; 80053; 80061; 83880; 85025; 93306

== ENCOUNTER 2020-06-01 14:11 | Emergency (ER) | payer MEDICARE, SELFPAY ==
[2019-08-28 12:47] VITALS: BMI 44.9
[2020-06-01] VITALS (14 sets, daily range): BP systolic 150–215; BP diastolic 80–110; PULSE 61–101; RESP 19–23; TEMP 36.5; O2SAT 96–99; BMI 48.0
--- NOTE | 2020-06-01 14:47 | PC.NURSE ---
Pt states that she has been having burning chest pain that resolves with antiacids. Pt is c/o a chest heaviness only at this time.
--- NOTE | 2020-06-01 14:50 | DI.RAD.S_ITS ---
PROCEDURE: XR CHEST 1V INDICATIONS: chest pain TECHNIQUE: One view of the chest was acquired. COMPARISON: [facility], CHEST 2 VIEW, 09/24/2013, 16:47. [facility], CHEST 1 VIEW, 05/09/2017, 22:28. FINDINGS: Surgical changes and devices: None. Lungs and pleura: Lungs are clear. No pleural effusions or pneumothorax. Mediastinum: Mediastinal contours appear normal. Heart size is normal. Bones and chest wall: No suspicious bony lesions. Overlying soft tissues appear unremarkable. IMPRESSION: No acute cardiopulmonary disease. Dictated by: Magi Hernandez M.D. on 06/01/2020 at 15:51 Approved by: Magi Hernandez M.D. on 06/01/2020 at 15:52
[2020-06-01 14:58] LABS: Add Manual Diff / Slide Review NO; Basophils Absolute Auto 0 /uL (0-100); Basophils Percent Auto 0.6 % (0-2); Eosinophils Absolute Auto 100 /uL (0-450); Eosinophils Percent Auto 1.9 % (2-4); Hematocrit 45.6 % (36-46); Hemoglobin 14.7 g/dL (12.0-16.0); Lymphocytes Absolute Auto 1400 /uL (1100-4500); Lymphocytes Percent Auto 23.5 % (25-40); Mean Corpuscular HGB Conc 32.3 % (30-36); Mean Corpuscular Volume 86.6 fL (80-100); Monocytes Absolute Auto 600 /uL (0-900); Monocytes Percent Auto 9.4 % (3-14); Neutrophils Absolute Auto 3900 /uL (1500-7000); Neutrophils Percent Auto 64.6 % (50-75); Platelet Count 228 X10^3/uL (150-400); Red Blood Cell Count 5.26 X10^6/uL (4.0-5.2); Red Cell Distribution Width 15.1 % (11.6-14.8)
[2020-06-01 15:05] LABS: Alanine Aminotransferase 32 IU/L (<35); Albumin 4.5 g/dL (3.5-5.0); Albumin Globulin Ratio 1.3 (1.0-2.8); Alkaline Phosphatase 89 U/L (38-126); Aspartate Aminotransferase 42 IU/L (14-36); BUN Creatinine Ratio 17.9 (6-22); Bilirubin Total 0.6 mg/dL (0.2-1.3); Blood Urea Nitrogen 15 mg/dL (7-17); Calcium 11.4 mg/dL (8.4-10.2); Carbon Dioxide 29 mmol/L (22-32); Chloride 106 mmol/L (98-107); Creatine Kinase 44 U/L (30-135); Estimated Glomerular Filt Rate > 60.0 mL/min (>60); Globulin 3.5 g/dL (1.7-4.1); Glucose 120 mg/dL (80-110); HEMOLYSIS 31 (0-50); Lipase 70 U/L (23-300); Potassium 4.4 mmol/L (3.4-5.1); Sodium 138 mmol/L (137-145)
[2020-06-01 15:16] LABS: Troponin I < 0.012 ng/mL (0.01-0.034)
--- NOTE | 2020-06-01 15:30 | ED_ITS ---
HPI - Chest Pain General Chief Complaint: Chest Pain Stated Complaint: DIVERTICULITIS Time Seen by Provider: 06/01/20 15:18 Source: patient Mode of arrival: Ambulatory Limitations: no limitations History of Present Illness HPI narrative: This is a 74-year-old female who comes emergency department with complaint of chest and abdominal pain. Patient states she has a significant history for diverticulitis she had resection in 1991 as well as 2013 for diverticulitis. She states typically it starts on the left but this time it began on the right lower side then radiated towards the middle and then ultimately toes the left side is traditional location. She denies fevers, she has felt chilled, she denies any nausea or vomiting she has had diarrhea but no melena or hematochezia. No major urinary changes. She has had some back discomfort. She states that they put her on Flagyl and sulfamethoxazole trimethoprim starting with her 1st dose on Sunday followed by 3 doses on Sunday. She developed significant burning in her esophageal area. She states she did not develop chest pain elsewhere. She was concerned she has a history of Johnson's esophagitis. She tried her Prilosec and Pepcid as well as drinking aloe vera with minimal improvement. She stop taking the antibiotics on Sunday. She states she has had reactions to sulfa in the past which she believes were upset stomach GI issues. She does have a history significant for psoriatic arthritis as well as ankylosing spondylitis, she takes Prilosec for GERD/Johnson's, folic acid and amlodipine 2.5 mg for hypertension she states that the pharmacy gave her the incorrect dose so she has not had her regular amlodipine for the last 3 days. She has multiple surgeries in the past including bilateral knee replacement, right shoulder repair, cholecystectomy, hernia repair, abdominal hernia repair, bilateral thumb surgery, cataract surgery. She states she has had Cipro and Flagyl in the past and done well with this but they wanted to stop using Cipro because they were concerned about tendon rupture. She is accompanied by her today. Related Data Home Medications Medication Instructions Recorded Confirmed potassium gluconate 2 tab PO HS #0 09/20/16 02/28/19 Resmed Airsense 10 CPAP #1 ea 07/30/18 02/04/19 Carditone 1 tab PO DAILY 02/04/19 02/28/19 citalopram 10 mg tablet 10 mg PO BEDTIME 02/04/19 02/28/19 omeprazole magnesium 20 mg 20 mg PO BEDTIME 02/04/19 02/28/19 tablet,delayed release Remicade 100 mg IV Q6W 02/19/19 02/28/19 Previous Rx's Medication Instructions Recorded albuterol sulfate 90 mcg/actuation 2 puff INHALATION Q4-6H PRN #8.5 09/06/18 aerosol inhaler gram acetaminophen 975 mg PO TID #60 tab 03/02/19 aspirin 81 mg PO BID #60 tab 03/02/19 hydroxyzine pamoate 25 mg PO Q4HR PRN #20 cap 03/02/19 ibuprofen 400 mg PO Q4H PRN #30 tab 03/02/19 oxycodone 5 mg PO Q4H PRN #50 tab 03/02/19 oxycodone 5 mg PO Q6H PRN #20 tab 06/01/20 Allergies Allergy/AdvReac Type Severity Reaction Status Date / Time olive extract [OLIVE] AdvReac Severe DIARRHEA Verified 02/04/19 13:45 quinine [QUININE] AdvReac Severe DIARRHEA Verified 02/04/19 13:45 Sulfa (Sulfonamide AdvReac Mild GI upset Verified 02/04/19 13:45 Antibiotics) Review of Systems Review of Systems ROS Unobtainable: All systems reviewed & are unremarkable except as noted in HPI and below Patient History Medical History (Updated 06/01/20 @ 17:01 by Diana Franco DO) Ankylosing spondylitis of lumbosacral region Anxiety Arthritis Bakers cyst Johnson's esophagus Depression Diverticulitis Inflammatory bowel diseases (IBD) Left knee pain Lower back pain Morbid obesity with BMI of 45.0-49.9, adult Obstructive sleep apnea of adult Primary insomnia Psoriatic arthropathy Right shoulder pain Seasonal allergies Ulcer Surgical History H/O: hysterectomy (~1991) History of arthroplasty of left knee (09/27/16) History of tonsillectomy and adenoidectomy Hx of bilateral cataract extraction Hx of cholecystectomy Hx of resection of small bowel (~2013) Hx of thumb surgery S/P colon resection (~1991) S/P total knee arthroplasty Social History household members: significant other Smoking Status: Never smoker alcohol intake: former Smoking Status: Never smoker Substance Use Type: does not use Exam Narrative Exam Narrative: GENERAL: Alert and oriented x three, obese, well-appearing female HEENT: Head normocephalic, atraumatic, EOMI, pupils reactive, face symmetric, moist mucous membranes NECK: Supple, full range of motion CARDIOVASCULAR: Regular rate and rhythm without murmurs, rubs or gallops. RESPIRATORY: Breath sounds equal bilaterally, no wheezes rales or rhonchi. ABDOMEN: Soft, generalized tenderness greatest at left upper quadrant. Normoactive bowel sounds all 4 quadrants. No guarding or rebound, rigidity, no mass : No CVA tenderness EXTREMITIES: Normal range of motion, no clubbing or edema. Neurovascularly intact NEUROLOGICAL: Cranial nerves II through XII grossly intact. Moving all extremities SKIN: Warm, dry, no petechiae, no rashes or lesions. Initial Vital Signs Initial Vital Signs: Vital Signs Temperature 97.7 F 06/01/20 14:25 Pulse Rate 101 H 06/01/20 14:25 Respiratory Rate 19 06/01/20 14:25 Blood Pressure 215/110 H 06/01/20 14:25 Pulse Oximetry 98 06/01/20 14:25 Course Orders Ordered: ED Orders 06/01/20 14:32 Complete Blood Count AUTO DIFF Stat Comprehensive Metabolic Panel Stat Lipase Stat NT-proBNP (BNP-Adult 18+) Stat Troponin & CK Cardiac Panel Stat 06/01/20 14:50 XR chest 1V Stat 06/01/20 15:45 CT abdomen pelvis w con Stat Discontinued Medications Al Hydrox/Mg Hydrox/Simethicone 20 ml/ Lidocaine HCl 15 ml 0 ml PO NOW ONE Stop: 06/01/20 16:57 Last Admin: 06/01/20 17:27 Dose: 45 ml Documented by: JONELLE Consultations Consultation #1: Spoke with Dr. Reardon who will help facilitate follow-up. Time: 18:15 Vital Signs Vital signs: Vital Signs - 8 hr 06/01/20 14:25 06/01/20 14:41 06/01/20 14:45 Temperature 97.7 F Pulse Rate 101 H 90 91 H Respiratory Rate 19 19 23 Blood Pressure 215/110 H 176/81 H Pulse Oximetry 98 98 97 06/01/20 15:00 06/01/20 15:15 06/01/20 15:30 Temperature Pulse Rate 90 90 85 Respiratory Rate 22 20 20 Blood Pressure 155/80 H 153/80 H 150/84 H Pulse Oximetry 97 96 98 06/01/20 15:45 06/01/20 15:56 06/01/20 16:10 Temperature Pulse Rate 84 95 H Respiratory Rate 21 Blood Pressure 166/90 H 179/105 H 185/88 H Pulse Oximetry 98 06/01/20 16:30 06/01/20 16:57 06/01/20 17:00 Temperature Pulse Rate 88 82 84 Respiratory Rate Blood Pressure 185/99 H 179/98 H Pulse Oximetry 97 99 98 06/01/20 17:15 06/01/20 18:10 Temperature Pulse Rate 84 61 Respiratory Rate Blood Pressure 182/97 H 179/96 H Pulse Oximetry 96 96 MDM - Chest Pain Lab Data Attestation: I reviewed the patient's lab results. Result diagrams: 06/01/20 14:32 06/01/20 14:32 Labs: Lab Results 06/01/20 06/01/20 06/01/20 Range/Units 14:32 14:32 14:32 WBC 6.0 (4.5-11.0) X10^3/uL RBC 5.26 H (4.0-5.2) X10^6/uL Hgb 14.7 (12.0-16.0) g/dL Hct 45.6 (36-46) % MCV 86.6 (80-100) fL MCH 28.0 (26-34) PG MCHC 32.3 (30-36) % RDW 15.1 H (11.6-14.8) % Plt Count 228 (150-400) X10^3/uL Neut % (Auto) 64.6 (50-75) % Lymph % (Auto) 23.5 L (25-40) % [place] % (Auto) 9.4 (3-14) % Eos % (Auto) 1.9 L (2-4) % Baso % (Auto) 0.6 (0-2) % Neut # (Auto) 3900 (7407-6086) /uL Lymph # (Auto) 1400 (9353-0806) /uL [place] # (Auto) 600 (0-900) /uL Eos # (Auto) 100 (0-450) /uL Baso # (Auto) 0 (0-100) /uL Sodium 138 (137-145) mmol/L Potassium 4.4 (3.4-5.1) mmol/L Chloride 106 (98-107) mmol/L Carbon Dioxide 29 (22-32) mmol/L BUN 15 (7-17) mg/dL Creatinine 0.84 (0.52-1.04) mg/dL Estimated GFR > 60.0 (>60) mL/min BUN/Creatinine Ratio 17.9 (6-22) Glucose 120 H (80-110) mg/dL Calcium 11.4 H (8.4-10.2) mg/dL Total Bilirubin 0.6 (0.2-1.3) mg/dL AST 42 H (14-36) IU/L ALT 32 (<35) IU/L Alkaline Phosphatase 89 (38-126) U/L Total Creatine Kinase 44 (30-135) U/L CK-MB (CK-2) TNP CK-MB (CK-2) Rel Index TNP Troponin I < 0.012 (0.01-0.034) ng/mL NT-Pro-B Natriuret Pep 34 (<450) pg/mL Total Protein 8.0 (6.3-8.2) g/dL Albumin 4.5 (3.5-5.0) g/dL Globulin 3.5 (1.7-4.1) g/dL Albumin/Globulin Ratio 1.3 (1.0-2.8) Lipase 70 (23-300) U/L Urine Dip Bedside Urine Glucose Negative Bedside Urine Bilirubin - Negative Bedside Urine Ketone - Negative Urine Specific Bim 1.02 Bedside Urine Occult Blood - Negative Bedside Urine pH 6.0 Bedside Urine Protein - Negative Bedside Urine Urobilinogen - Negative Bedside Urine Nitrite - Negative Bedside Urine Leukocytes - Negative Esterase Imaging Data CT scan - abdomen/pelvis: Radiologist's Impression: [address] [id number] Scan ReportSigned Patient: Alexandra Robbins [facility]#: [id number]: 5Acct:[id number]/Sex: 74 / FDate of Service: 06/01/20Loc: EDAccession Number: [id number] Procedure: CT abdomen pelvis w con Ordering Provider: Diana Franco D.O. PROCEDURE: CT ABDOMEN PELVIS W CON INDICATIONS: hx of diverticulitis/ LUQ pain, been on abx TECHNIQUE: After the administration of intravenous contrast, 5 mm thick sections acquired from the diaphragm to the symphysis. 5 mm coronal and sagittal reformats were acquired. For radiation dose reduction, the following was used: automated exposure control, adjustment of mA and/or kV according to patient size. COMPARISON: None. FINDINGS: Image quality: Excellent. ABDOMEN: Lung bases: There is a posterior mediastinal periaortic lymph node measuring 20 mm short axis. Lung bases are otherwise clear. Heart size is normal. Solid organs: Liver is normal in size and enhancement. Gallbladder surgically absent. Biliary system is non dilated. Pancreas enhances normally. Spleen is normal in size and enhancement. No adrenal nodules. Kidneys demonstrate normal size and e nhancement, without hydronephrosis. Peritoneum and bowel: Moderate hiatal hernia. Bowel loops demonstrate normal wall thickness and caliber. No free fluid or air. Nodes and vessels: There is a periceliac/gastrohepatic ligament lymph node, measuring 37 mm transverse by 63 mm anteroposterior, which encases the left lateral aspect of the infra hepatic IVC, left renal vein, celiac artery, and superior mesenteric artery, as well as the common hepatic artery. This mass also extends to abut the posterior margin of the pancreatic neck/body junction. There is a separate aortocaval lymph node measuring 25 mm short axis which partially encases the infrarenal IVC and infrarenal aorta.. There is moderate associated narrowing of the celiac and superior mesenteric arteries. Aorta and inferior vena cava are normal in size. Miscellaneous: No ventral hernias. PELVIS: Genitourinary: Bladder wall thickness is normal. Miscellaneous: There is a pathologic left inguinal lymph node, measuring 17 mm x 38 mm. Bones: No suspicious bony lesions. There is an incompletely visualized soft tissue density mass within the right paraspinous soft tissues at T9-T12, which extends into the retrocrural space at T12. Left paraspinous soft tissue density adjacent to the left 10th costovertebral junction. No vertebral body compression fractures. IMPRESSION: 1. Pathologic adenopathy within the posterior inferior mediastinum, retroperitoneum and left inguinal region as described above, consistent with metastatic disease versus lymphoma. The left inguinal lymph node would be amenable to percutaneous sonographically directed biopsy. The adenopathy demonstrates involvement of adjacent structures as described above, and is associated with narrowing of the proximal celiac and superior mesenteric arteries. 2. Bilateral lower thoracic paraspinous masses. Further assessment with nonemergent thoracic spine MRI with and without intravenous contrast is recommended. 3. Moderate hiatal hernia. Dictated by: Jacquelin Bob M.D. on 06/01/2020 at 16:18 Approved by: Jacquelin Bob M.D. on 06/01/2020 at 16:24 ECG Data Attestation: I personally reviewed and interpreted this ECG as follows: Interpretation: Sinus rhythm rate of 91 P are 160 QRS 86 and QTC [address] No [address] elevation depression appreciated. MDM Narrative Medical decision making narrative: 74-year-old female comes in with complaint of abdominal pain as well as heartburn type symptoms after starting Bactrim. States she had similar type symptoms after sulfa antibiotics in the past. Patient's symptoms were atypical from her past diverticulitis in imaging was obtained which shows concerning lymphadenopathy as well as paraspinal masses. Patient's EKG and troponin are negative for acute changes. She did have in significant improvement of her symptoms after GI cocktail and has had issues with self antibiotics in the past. We discussed to completely stop her antibiotics. Plan to set her up with Oncology. I also asked her to call her [facility] who can help facilitate her follow-up. She and I discussed that she can take oxycodone as needed for pain if needed but can start with Tylenol if she prefers. Her blood pressure somewhat elevated but has improved significantly since she arrived. All questions were answered for her as well as her . Discharge Plan Departure Patient Disposition: Home Clinical Impression: Paraspinous mass, Abdominal lymphadenopathy Activity Restrictions/Additional Instructions: Follow up with oncology, call tomorrow for an appointment. Your imaging today shows bilateral lower thoracic paraspinous masses as well as adenopathy in the left inguinal region which is concerning. They do see a left inguinal node that could be biopsied via ultrasound, discussed with the oncologist or your primary care to order this. It is also recommended that you have a thoracic spine MRI with and without contrast to further evaluate the masses. You may stop your antibiotics. You may take Tylenol up to a 1000 mg every 8 hours as needed for pain. If this is inadequate you may also take oxycodone 1 tablet every 4-6 hours as needed for pain. Do not drive, perform hazardous activities or make any major decisions while taking this medication. This medication is also constipating I recommend taking Colace 1-2 tablets every day until stools are soft when taking narcotic pain medicine. Return to the ER for fevers, rapidly worsening chest or abdominal pain, persistent vomiting, black or bloody stools or inability to have a bowel movement, difficulty with urination lightheadedness or passing out or other new or concerning symptoms. Prescriptions: New oxycodone 5 mg tablet 5 mg PO Q6H PRN (Reason: pain) Qty: 20 RF: 0 No Action albuterol sulfate 90 mcg/actuation HFA aerosol inhaler 2 puff INHALATION Q4-6H PRN (Reason: shortness of breath) Qty: 8.5 RF: 1 potassium gluconate 99 MG tablet 2 tab PO HS Qty: 0 RF: 0 Remicade 100 mg Recon Soln 100 mg IV Q6W RF: 0 acetaminophen 325 mg Tablet 975 mg PO TID Qty: 60 RF: 0 aspirin 81 mg Tablet,Delayed Release (Dr/Ec) 81 mg PO BID Qty: 60 RF: 0 ibuprofen 400 mg Tablet 400 mg PO Q4H PRN (Reason: Pain, Mild (1-3)) Qty: 30 RF: 1 oxycodone 5 mg Tablet 5 mg PO Q4H PRN (Reason: Pain, Moderate (4-6)) Qty: 50 RF: 0 hydroxyzine pamoate 25 mg Capsule 25 mg PO Q4HR PRN (Reason: Nausea) Qty: 20 RF: 0 (DME) Resmed Airsense 10 CPAP Qty: 1 RF: 0 citalopram 10 mg tablet 10 mg PO BEDTIME RF: 0 Prilosec OTC 20 mg tablet,delayed release (DR/EC) 20 mg PO BEDTIME RF: 0 Carditone 1 tab PO DAILY RF: 0 Referrals: Lolita Quintero PA-C [Primary Care Provider] - Earle Reardon MD [Physician] -
--- NOTE | 2020-06-01 15:45 | DI.CT.S_ITS ---
PROCEDURE: CT ABDOMEN PELVIS W CON INDICATIONS: hx of diverticulitis/ LUQ pain, been on abx TECHNIQUE: After the administration of intravenous contrast, 5 mm thick sections acquired from the diaphragm to the symphysis. 5 mm coronal and sagittal reformats were acquired. For radiation dose reduction, the following was used: automated exposure control, adjustment of mA and/or kV according to patient size. COMPARISON: None. FINDINGS: Image quality: Excellent. ABDOMEN: Lung bases: There is a posterior mediastinal periaortic lymph node measuring 20 mm short axis. Lung bases are otherwise clear. Heart size is normal. Solid organs: Liver is normal in size and enhancement. Gallbladder surgically absent. Biliary system is non dilated. Pancreas enhances normally. Spleen is normal in size and enhancement. No adrenal nodules. Kidneys demonstrate normal size and enhancement, without hydronephrosis. Peritoneum and bowel: Moderate hiatal hernia. Bowel loops demonstrate normal wall thickness and caliber. No free fluid or air. Nodes and vessels: There is a periceliac/gastrohepatic ligament lymph node, measuring 37 mm transverse by 63 mm anteroposterior, which encases the left lateral aspect of the infra hepatic IVC, left renal vein, celiac artery, and superior mesenteric artery, as well as the common hepatic artery. This mass also extends to abut the posterior margin of the pancreatic neck/body junction. There is a separate aortocaval lymph node measuring 25 mm short axis which partially encases the infrarenal IVC and infrarenal aorta.. There is moderate associated narrowing of the celiac and superior mesenteric arteries. Aorta and inferior vena cava are normal in size. Miscellaneous: No ventral hernias. PELVIS: Genitourinary: Bladder wall thickness is normal. Miscellaneous: There is a pathologic left inguinal lymph node, measuring 17 mm x 38 mm. Bones: No suspicious bony lesions. There is an incompletely visualized soft tissue density mass within the right paraspinous soft tissues at T9-T12, which extends into the retrocrural space at T12. Left paraspinous soft tissue density adjacent to the left 10th costovertebral junction. No vertebral body compression fractures. IMPRESSION: 1. Pathologic adenopathy within the posterior inferior mediastinum, retroperitoneum and left inguinal region as described above, consistent with metastatic disease versus lymphoma. The left inguinal lymph node would be amenable to percutaneous sonographically directed biopsy. The adenopathy demonstrates involvement of adjacent structures as described above, and is associated with narrowing of the proximal celiac and superior mesenteric arteries. 2. Bilateral lower thoracic paraspinous masses. Further assessment with nonemergent thoracic spine MRI with and without intravenous contrast is recommended. 3. Moderate hiatal hernia. Dictated by: Jacquelin Bob M.D. on 06/01/2020 at 16:18 Approved by: Jacquelin Bob M.D. on 06/01/2020 at 16:24
[2020-06-01 16:00] LABS: NT-proBNP (BNP-Adult 18+) 34 pg/mL (<450)
[2020-06-01] MEDS: MAG HYDROX/ALUMINUM/SIMETH SUS 20 ML, LIDOCAINE VISCOUS 2% 15 ML PO (17:27)
== END 2020-06-01 18:16 | disposition home or self-care (01) ==
PROVIDERS: Emergency Provider Emergency Medicine; Family Provider Student in an Organized Health Care Education/Training Program; PCP Student in an Organized Health Care Education/Training Program
DX: R22.2 Localized swelling, mass and lump, trunk (principal); R59.0 Localized enlarged lymph nodes; R07.9 Chest pain, unspecified; Z87.19 Personal history of other diseases of the digestive system; E66.01 Morbid (severe) obesity due to excess calories; Z68.42 Body mass index [BMI] 45.0-49.9, adult
CPT/HCPCS: 36415; 71045; 74177; 80053; 81003; 82550; 83690; 83880; 84484; 85025; 93005; 93010; 99284; Q9967

== ENCOUNTER → 2020-06-07 08:49 | Outpatient (CLI) | payer MEDICARE, SELFPAY ==
[2019-08-28 12:47] VITALS: BMI 44.9
--- NOTE | 2020-06-07 | DI.MRI.S_ITS ---
PROCEDURE: MR THORACIC SPINE WO/W CON INDICATIONS: Localized swelling, mass and lump, trunk TECHNIQUE: Noncontrast sagittal T1 spin echo and T2 fast spin echo, sagittal STIR, axial T1 and T2 fast spin echo through the thoracic spine. After the administration of contrast, axial and sagittal T1 spin echo with fat saturation through the thoracic spine. COMPARISON: [facility], CR, XR CHEST 1V, 06/01/2020, 15:05. [facility], CT, CT ABDOMEN PELVIS W CON, 06/01/2020, 15:59. FINDINGS: Image quality: Excellent. Alignment and curvature: Accentuated thoracic kyphosis is seen. No focal AP alignment abnormality is seen. Marrow: Marrow is of normal overall signal. No acute vertebral body compression fractures. Several mild, chronic appearing lower thoracic spine anterior wedge deformities are seen. Spinal cord: Visualized spinal cord is of normal signal and size, without abnormal enhancement. Paraspinous soft tissues: Within the right paraspinous region within the lower thoracic spine, there is generalized poorly defined abnormal soft tissue, which extends from the T6 level through T12. This is seen superficial to the pleura and is seen between the ribs. There is at least 1 level of invagination into the neural foramen, as seen on the right on series 12 image 25 at the T7-T8 level. Miscellaneous: Generalized degenerative changes are seen, with several levels of mild to moderate disc space narrowing with endplate irregularity. There is partial vertebral body fusion seen anteriorly at T9-T10. Mild central disc protrusions can be seen at T6-T7, T7-T8, T8-T9, and T10-T11, with mild central canal narrowing. Several levels of mild to moderate neural foraminal narrowing can be seen inferiorly. IMPRESSION: Abnormally enhancing soft tissue seen involving the right paraspinous region extending from T6 through T12. There is invagination into the right neural foramen at T7-T8. Given the findings elsewhere, this is suspicious for lymphoma. Degenerative changes are seen, with several levels of central disc protrusions. Partial vertebral body fusion can be seen anteriorly at T9-T10. Dictated by: Og Wesley M.D. on 06/07/2020 at 9:19 Approved by: Og Wesley M.D. on 06/07/2020 at 9:26
== END ==
PROVIDERS: Family Provider Student in an Organized Health Care Education/Training Program; PCP Student in an Organized Health Care Education/Training Program; Referring Provider Student in an Organized Health Care Education/Training Program; Visit Provider Student in an Organized Health Care Education/Training Program
DX: R22.2 Localized swelling, mass and lump, trunk (principal); R29.0 Tetany; M47.814 Spondylosis without myelopathy or radiculopathy, thoracic region; M48.04 Spinal stenosis, thoracic region; M51.24 Other intervertebral disc displacement, thoracic region
CPT/HCPCS: 72157

== ENCOUNTER → 2020-06-21 11:51 | Outpatient (CLI) | payer MEDICARE, SELFPAY ==
[2020-06-14 14:06] VITALS: BMI 44.9
[2020-06-21 12:30] LABS: COVID19 -Nasal RAPID Negative (Negative)
== END ==
PROVIDERS: Family Provider Student in an Organized Health Care Education/Training Program; PCP Student in an Organized Health Care Education/Training Program; Visit Provider Surgery
DX: Z20.822 Contact with and (suspected) exposure to COVID-19 (principal)
CPT/HCPCS: 87635; C9803

== ENCOUNTER 2020-06-22 08:56 | Day surgery (SDC) | payer MEDICARE, SELFPAY ==
[2020-06-14 14:06] VITALS: BMI 44.9
[2020-06-22] VITALS (7 sets, daily range): BP systolic 117–160; BP diastolic 60–94; PULSE 68–88; RESP 10–24; TEMP 36.2–37.1; O2SAT 91–100; BMI 46.8
--- NOTE | 2020-06-22 | PATH_ITS ---
[facility] Accession Number: [id number] . 01 Material submitted: . PART A: groin - LEFT GROIN MASS PART B: groin - LEFT GROIN MASS . 01 Clinical history: . A: FIXATIVE FORMALIN B: B PLUS . 01 Diagnosis: Soft tissue, left groin, excisional biopsy: -- Diffuse large B-cell Lymphoma, GCB type (DLBCL-GCB) ----- WHO Classification, 2016 Revision See comment BMQ 06/30/2020 1549 Local . 01 Comment: The presence of CD10 expression suggests a germinal center/follicle center cell of origin. . Flow cytometric analysis on a fragment of this sample demonstrates a an abnormal kappa restricted mature B-cell population of medium and large size. This population expresses dim CD19, intermediate CD20, CD22, CD10(subset) and CD11c(subset); it does not express CD5, CD23, FMC7, or CD103. See separate report: [id number], signed on 06/28/2020. These findings correlate with the morphologic and immunohistochemical findings. . FISH Testing (Aggressive B-cell lymphoma panel) has been requested. This report will be addended as soon as those results are finalized. . 01 Electronically signed: . Cristina Mcmahon MD, Pathologist NPI- [id number] . 01 Gross description: . A. The specimen is received in formalin, labeled left groin mass and consists of a 3.0 x 2.0 x 1.5 cm barnes fragment of soft tissue with attached barnes-yellow adipose tissue. The specimen is serially sectioned and entirely submitted in cassettes A1-A3. B. The specimen is received in formalin, labeled left groin mass and consists of multiple barnes (slightly blue tinged) fragments of soft tissue and barnes-yellow adipose tissue measuring 6.5 x 4.5 x 3.2 cm in aggregate. Sectioning reveals barnes smooth cut surfaces. Some of the adipose tissue is removed and the remainder of the specimen is submitted in cassettes B1-B8. ([id number]) /MRV 06/25/2020 1443 Local . 01 Microscopic: . H/E sections demonstrate fragments of soft tissue with an atypical lymphoid infiltrate in sheets. A lymph node capsule is not identified. The infiltrate is seen extending into adipose tissue. Focally, there is sclerotic banding. There is no evidence of tumor diathesis, granulomata, carcinoma or carcinoma. There is no evidence of associated eosinophilia. Vaguely follicular areas are seen, focally. There is focal variability in the lymphoid infiltrate. In some areas, the process comprises small to medium sized lymphoid cells with angular nuclear borders and without visible nucleoli. Other areas demonstrate sheets of predominately large cells, many with centroblastic features (large round nuclei with visible peripherally located nucleoli) or with central single nucleoli. Mitotic figures and apoptotic bodies are present. Rare multinucleate cells are seen in diffuse distribution. . In order to more fully characterize this process, immunohistochemical stains were indicated. The controls reacted appropriately. . Findings: CD20: Large cells positive, in sheets and singly. (Membranous/Strong) PAX5: Large cells positive, in sheets and singly. Large and multinucleate cells are of equal expression strength as large mononuclear cells. (Membranous/Strong) CD10: Positive; pattern mirrors CD20. (Membranous/Strong) CD3: Small T-lymphoid cells positive, especially in parafollicular zones. None large or atypical. (Membranous/Strong) CD5: Pattern mirrors CD3. (Membranous/Strong) CD30: Isolated cells positive, diffuse distribution. None large or multinuclear. (Membranous/Strong) BOB1: Positive, including larger multinuclear cells. (Nuclear/Strong) OCT2: Pattern mirrors BOB1. (Nuclear/Strong) MUM1: Negative CyclinD1: Negative Ki67: variable positivity, reaching up to 40% in the non-germinal center appearing areas and up to 60% in the follicular areas. (Nuclear/Strong) . Interpretation: DLBCL, GCB type, with moderate mitotic activity. . Technical Note: The immunohistochemistry stains reported were performed at [facility] ([address], [facility] [address]). They were developed and their performance characteristics determined by [employer] They have not been cleared or approved by the U.S. Food and Drug Administration, although such approval is not required for analyte-specific reagents of this type. . 01 Pathologist provided ICD-10: C83.30 . 01 CPT . 426406, C84924, V54296, 294747 Performed at: 01 [facility] [address], [place], [place] [id number] MD Koko Jasso MD Phone: [phone]
[2020-06-22] MEDS: LACTATED RINGERS 1,000 ML 100 ML IV (09:34)
--- NOTE | 2020-06-22 10:06 | PM.PREOP ---
Pre-operative Note Interval Note History & Physical reviewed/Exam performed by Physician: Yes Changes to H&P: No
[2020-06-22] MEDS: CLINDAMYCIN 900 MG/50 ML PIGGYBACK 50 MG IV (10:25)
--- NOTE | 2020-06-22 10:47 | SUR.OPER ---
Supine on padded OR bed, head on pillow, arms secured on padded arm boards at <90 degrees abduction, legs uncrossed, safety belt at thigh, tape over blanket over lower legs. Gel pad under heels. Panus taped up with tape and mastisol.
[2020-06-22] MEDS: BUPIVACAINE 0.25% (PF) VIAL 30 ML INJ (11:13)
--- NOTE | 2020-06-22 11:40 | PM.OP.1 ---
Operative Date/Time/Diagnoses Date of procedure: 06/22/20 Time of procedure: 11:40 Pre-op diagnosis: Left groin mass Post-op diagnosis: same Procedure & Clinicians Procedure: Excision of left inguinal lymph node Same procedure as scheduled: Yes Indications: 74-year-old female with a left groin mass and diffuse lymphadenopathy presents for an excisional biopsy of left groin Surgeon: Mitchell Ramesh Click Yes if Unassisted: Yes Anesthesia Type: General Operative Notes Findings: 6 cm firm superficial mass of the left groin Specimen(s): other (Left groin mass) Estimated Blood Loss (mL): 20 Procedure in detail: Patient was brought to the operating room placed supine on the table. Bilateral lower extremity compression devices were applied. General anesthesia was induced and she was intubated with an LMA. Left groin was prepped and draped in sterile fashion. Incision of 6 cm was made over the left groin mass will just superior to the inguinal ligament. The subcutaneous tissues were divided with electrocautery. An approximately 6 cm firm mass was encountered beneath the subcutaneous tissue. Mass was dissected out circumferentially from its attachments. It was passed off the field as specimen. The wound was irrigated and hemostasis was achieved. The subcutaneous tissue was closed with 3-0 Vicryl suture and the skin closed with 4-0 Monocryl followed by the application of Dermabond and Steri-Strips. Patient tolerated the procedure well was extubated and transferred to the recovery room in stable condition. Complications: none Post-operative Disposition: same day surgery
[2020-06-22] MEDS: ACETAMINOPHEN 325 MG TABLET 975 MG PO (12:12)
== END 2020-06-22 12:30 | disposition home or self-care (01) ==
PROVIDERS: Family Provider Student in an Organized Health Care Education/Training Program; PCP Student in an Organized Health Care Education/Training Program; Referring Provider Surgery; Visit Provider Surgery
PROC: (CPT 38531; principal; 2020-06-22 10:15)
DX: C83.35 Diffuse large B-cell lymphoma, lymph nodes of inguinal region and lower limb (principal); G47.33 Obstructive sleep apnea (adult) (pediatric); E66.01 Morbid (severe) obesity due to excess calories; Z68.42 Body mass index [BMI] 45.0-49.9, adult
CPT/HCPCS: 38531; 11406; J1100; J2250; J2405; J2704; J3010

== ENCOUNTER → 2020-07-08 09:38 | Outpatient (CLI) | payer MEDICARE, SELFPAY ==
[2020-06-14 14:06] VITALS: BMI 44.9
--- NOTE | 2020-07-08 09:43 | DI.NM.S_ITS ---
PROCEDURE: [facility] RADIOPHARMACEUTICAL: 26.8 mCi Tc-99m labeled autologous red cells IV. INDICATIONS: DLBCL, pre-chemotherapy evaluation TECHNIQUE: After intravenous administration of autologous labeled WBC, LUXEMBOURGER views of the chest were obtained. A region of interest was drawn around the left ventricle to calculate left ventricle ejection fraction. COMPARISON: [place], [place], [place] PET CT FUSION SKULL 2 THIGH, 07/07/2020, 8:23. FINDINGS: The heart and great vessels are of normal size and configuration. The left ventricle contracts normally, with left ventricle ejection fraction of 70.8%. Normal ejection fractions for this study are above 55%. A drop from baseline ejection fraction of greater than 10 percentage points or to below 45% on follow-up studies may be considered significant. IMPRESSION: Normal left ventricular ejection fraction at 70.8%. Dictated by: Magi Hernandez M.D. on 07/08/2020 at 11:48 Approved by: Magi Hernandez M.D. on 07/08/2020 at 11:49
== END ==
PROVIDERS: Family Provider Student in an Organized Health Care Education/Training Program; PCP Student in an Organized Health Care Education/Training Program; Referring Provider Internal Medicine Hematology & Oncology; Visit Provider Internal Medicine Hematology & Oncology
DX: Z01.818 Encounter for other preprocedural examination (principal); C83.30 Diffuse large B-cell lymphoma, unspecified site
CPT/HCPCS: 78472; A9512; A9538

== ENCOUNTER → 2020-07-12 10:04 | Outpatient (CLI) | payer MEDICARE, SELFPAY ==
[2020-06-14 14:06] VITALS: BMI 44.9
[2020-07-12 13:00] LABS: COVID19 -Nasal RAPID Negative (Negative)
== END ==
PROVIDERS: Family Provider Student in an Organized Health Care Education/Training Program; PCP Student in an Organized Health Care Education/Training Program; Visit Provider Surgery
DX: Z20.822 Contact with and (suspected) exposure to COVID-19 (principal)
CPT/HCPCS: 87635; C9803

== ENCOUNTER 2020-07-13 08:12 | Day surgery (SDC) | payer MEDICARE, SELFPAY ==
[2020-06-14 14:06] VITALS: BMI 44.9
[2020-07-13] VITALS (7 sets, daily range): BP systolic 86–137; BP diastolic 49–81; PULSE 68–86; RESP 13–22; TEMP 35.6–36.5; O2SAT 90–100; BMI 46.5
--- NOTE | 2020-07-13 | DI.RAD.S_ITS ---
PROCEDURE: XR CHEST 1V INDICATIONS: RIGHT PORT A CATH TECHNIQUE: One view of the chest was acquired. COMPARISON: [facility], , XR CHEST 1V, 06/01/2020, 15:05. FINDINGS: Surgical changes and devices: Right neck chest port past been placed with tube tip projected over the right lung apex. Lungs and pleura: Lungs are clear. No pleural effusions or pneumothorax. Mediastinum: Mediastinal contours appear normal. Heart size is normal. Bones and chest wall: No suspicious bony lesions. Overlying soft tissues appear unremarkable. IMPRESSION: Right neck chest port has been placed with tube tip projected over the right lung apex which cannot be further localized. Dictated by: Olayinka Olson [facility] Interpreted: Heriberto Umaña MD on 07/13/2020 at 16:29 Approved by: Heriberto Umaña M.D. on 07/13/2020 at 16:40
[2020-07-13] MEDS: LACTATED RINGERS 1,000 ML 42 ML IV (09:05)
--- NOTE | 2020-07-13 10:21 | PM.PREOP ---
Pre-operative Note Interval Note History & Physical reviewed/Exam performed by Physician: Yes Changes to H&P: No
[2020-07-13] MEDS: CLINDAMYCIN 900 MG/50 ML PIGGYBACK 50 MG IV (10:45)
--- NOTE | 2020-07-13 11:05 | SUR.OPER ---
Addendum entered by Corine William R.N. 07/13/20 11:07: Gel padding also under bilateral arms. Mastisol placed to upper breasts, taped over Mastisol and breasts slightly pulled distally from surgical site. Original Note: Supine on padded OR bed, head on gel donut, rolled towel between shoulder blades, arms secured on padded arm boards at <90 degrees abduction, legs uncrossed, safety belt at thigh, tape over blanket over lower legs.
[2020-07-13] MEDS: BUPIVACAINE 0.25% (PF) VIAL 30 ML INJ (11:19)
[2020-07-13] MEDS: HEPARIN 5,000 UNIT, SODIUM CHLORIDE 0.9% 50 ML IV (11:20)
--- NOTE | 2020-07-13 11:54 | PM.OP.1 ---
Operative Date/Time/Diagnoses Date of procedure: 07/13/20 Time of procedure: 11:54 Pre-op diagnosis: lymphoma Post-op diagnosis: same Procedure & Clinicians Procedure: Port-A-Cath placement Same procedure as scheduled: Yes Indications: 74-year-old woman B-cell lymphoma here for Port-A-Cath placement Surgeon: Mitchell Ramesh Anesthesia Type: General Operative Notes Findings: Tip of the catheter within the SVC on room fluoroscopy. Specimen(s): none sent Estimated Blood Loss (mL): 20 Procedure in detail: Patient was brought to the operating room placed supine on table. Bilateral lower extremity compressive devices were applied. General anesthesia was induced and he was intubated with an LMA. He was then prepped and draped in usual sterile fashion. Time-out was performed ensure the correct patient procedure necessary equipment within the operating room. He received 2 g of Ancef prior to incision. Under ultrasound guidance the right internal jugular vein was accessed under direct visualization. The guidewire was then threaded through the needle. Its placement was then confirmed using fluoroscopy. The dilator was then placed over the guidewire. The catheter was then inserted through the sheath. Placement was again confirmed with fluoroscopy. A subcutaneous pocket was made in the right chest wall. The tunneler device was used to move the catheter from the neck to the chest pocket. The port was attached after it was primed with heparined saline. The port was tested to ensure that it flushed easily and had good blood return. The port was then secured to the underlying fascia using interupted 0 Prolene suture. Hemostasis was achieved. The wound was irrigated with sterile saline. The subcutaneous tissues were reapproximated with the 3 0 Vicryl and then skin closed with 4-0 Monocryl. The skin was sealed with Dermabond. Patient tolerated procedure well. The sponge and instrument count at the end operation was correct. Patient emerged from general anesthesia was extubated and taken to the postoperative care unit in stable condition Complications: none Post-operative Condition: stable Disposition: same day surgery
[2020-07-13] MEDS: OXYCODONE/ACETAMINOPHEN 5/325 TABLET 1 TAB PO (11:57)
--- NOTE | 2020-07-13 13:07 | SUR.PHASEII ---
Pt ready to go soon after arrival to phase 2. Pt dressed, ride called, dressing remained c/d/i. Pt left unit in stable condition.
== END 2020-07-13 13:00 | disposition home or self-care (01) ==
PROVIDERS: Family Provider Student in an Organized Health Care Education/Training Program; PCP Student in an Organized Health Care Education/Training Program; Referring Provider Surgery; Visit Provider Surgery
PROC: (CPT 36561; principal; 2020-07-13 09:15)
DX: C83.35 Diffuse large B-cell lymphoma, lymph nodes of inguinal region and lower limb (principal); E66.9 Obesity, unspecified; G47.33 Obstructive sleep apnea (adult) (pediatric); Z68.42 Body mass index [BMI] 45.0-49.9, adult
CPT/HCPCS: 36561; 71045; 76000; 82962; C1788; J1100; J1644; J2250; J2405; J2704; J3010

== ENCOUNTER 2020-07-26 13:55 | Emergency (ER) | payer MEDICARE, SELFPAY ==
[2020-06-14 14:06] VITALS: BMI 44.9
[2020-07-26] VITALS (16 sets, daily range): BP systolic 130–194; BP diastolic 60–110; PULSE 69–117; RESP 16–29; TEMP 36.4–36.7; O2SAT 90–99
--- NOTE | 2020-07-26 13:56 | DI.RAD.S_ITS ---
PROCEDURE: XR CHEST 1V INDICATIONS: chest pain TECHNIQUE: One view of the chest was acquired. COMPARISON: [facility], CR, XR CHEST 1V, 07/13/2020, 12:00. FINDINGS: Surgical changes and devices: Port-A-Cath, unchanged, tip projecting to origin of right brachiocephalic vein. Lungs and pleura: Lungs are clear. No pleural effusions or pneumothorax. Mediastinum: Mediastinal contours appear normal. Heart size is normal. Bones and chest wall: No suspicious bony lesions. Overlying soft tissues appear unremarkable. IMPRESSION: Unchanged Port-A-Cath location. No evidence acute pulmonary process. Dictated by: Danilo Ragsdale M.D. on 07/26/2020 at 14:31 Approved by: Danilo Ragsdale M.D. on 07/26/2020 at 14:33
[2020-07-26 14:33] LABS: INR 1.1 (0.9-1.3); Prothrombin Time 12.3 SECONDS (10.1-12.7)
[2020-07-26 14:35] LABS: Creatine Kinase < 20 U/L (30-135); Lipase 123 U/L (23-300)
[2020-07-26 14:36] LABS: PTT Partial Thromboplastin Tim 32 SECONDS (26.4-36.2)
[2020-07-26 14:48] LABS: NT-proBNP (BNP-Adult 18+) 34 pg/mL (<450); Troponin I < 0.012 ng/mL (0.01-0.034)
[2020-07-26 14:57] LABS: D Dimer 511 ng/mL (<230)
--- NOTE | 2020-07-26 15:31 | ED_ITS ---
HPI - General Adult General Chief complaint: Shortness of Breath/Dyspnea Stated complaint: short of breath Time Seen by Provider: 07/26/20 14:40 Source: patient Mode of arrival: Ambulatory History of Present Illness HPI narrative: 74-year-old woman with a history of hypertension, reactive airway disease, reflux with a history of Johnson's esophagus, newly diagnosed large B- cell lymphoma stage III post 1st chemotherapy 1 week ago with a week of weakness, shakiness, general malaise. Over the last couple of days she has had central chest pain/pressure she describes it as constant and uncomfortable with increasing dyspnea and tachypnea. She has a port in place in the right upper chest that is been there for 2 weeks and after placement developed a rash around the port that looks like an allergic reaction to either tape or the anesthetic scrubbed used. Does not appear to be infected but has also not responded to topical steroids and other emollients. Related Data Home Medications Medication Instructions Recorded Confirmed potassium gluconate 2 tab PO HS #0 09/20/16 07/21/20 Resmed Airsense 10 CPAP #1 ea 07/30/18 07/21/20 omeprazole magnesium 20 mg 20 mg PO BEDTIME 02/04/19 07/21/20 tablet,delayed release amlodipine 2.5 mg PO DAILY 06/14/20 07/21/20 folic acid 0.8 mg capsule 0.8 mg PO DAILY 06/16/20 07/21/20 naproxen sodium 220 mg capsule 660 mg PO BEDTIME 06/16/20 07/21/20 Previous Rx's Medication Instructions Recorded albuterol sulfate 90 mcg/actuation 2 puff INHALATION Q4-6H PRN #8.5 09/06/18 aerosol inhaler gram acetaminophen 975 mg PO TID #60 tab 03/02/19 oxycodone 5 mg PO Q6H PRN #20 tab 06/01/20 nystatin 100,000 unit/gram topical 1 applic TOPICAL TID #60 g 07/07/20 powder fluconazole 100 mg PO DAILY #30 tab 07/13/20 prednisone 100 mg PO DAILY #80 tab 07/13/20 ondansetron HCl [Zofran] 8 mg PO Q8H PRN #60 tab 07/19/20 Allergies Allergy/AdvReac Type Severity Reaction Status Date / Time trimethoprim [From Bactrim] Allergy Severe Gastrointestinal Verified 07/21/20 14:03 Upset cephalexin [From Keflex] Allergy Unknown Rash Verified 07/21/20 14:03 sulfamethoxazole Allergy Unknown Verified 07/21/20 14:03 [From Bactrim] olive extract [OLIVE] AdvReac Severe DIARRHEA Verified 07/21/20 14:03 quinine [QUININE] AdvReac Severe DIARRHEA Verified 07/21/20 14:03 Sulfa (Sulfonamide AdvReac Mild GI upset Verified 07/21/20 14:03 Antibiotics) Review of Systems Review of Systems ROS Unobtainable: All systems reviewed & are unremarkable except as noted in HPI and below Patient History Medical History Ankylosing spondylitis of lumbosacral region Anxiety Arthritis Bakers cyst Johnson's esophagus Depression Diverticulitis Inflammatory bowel diseases (IBD) Left knee pain Lower back pain Morbid obesity with BMI of 45.0-49.9, adult Obstructive sleep apnea of adult Osteoporosis Primary insomnia Psoriatic arthropathy Right shoulder pain Seasonal allergies Ulcer Surgical History H/O: hysterectomy (~1991) History of arthroplasty of left knee (09/27/16) History of tonsillectomy and adenoidectomy Hx of bilateral cataract extraction Hx of cholecystectomy Hx of resection of small bowel (~2013) Hx of thumb surgery Hx of total knee arthroplasty S/P colon resection (~1991) S/P total knee arthroplasty Family History Mother Hypertension Social History marital status: unknown household members: spouse Smoking Status: Never smoker alcohol intake: never substance use type: does not use Smoking Status: Never smoker Substance Use Type: does not use Exam Narrative Exam Narrative: General: Healthy appearing, in no acute distress. Able to give a complete and coherent history. Well-nourished well-developed HEENT: Moist mucous membranes, normal sclera with reactive pupils, Chest: Rash around recently placed port that is erythematous and scaling. Shape of rash suggests acute reaction to Skin cleanser or tape related to port placement Neck: No JVD, supple Respiratory: Lungs are clear to auscultation, no wheezing no rales no rhonchi. Full and symmetrical air movement Cardiac: Regular rate and rhythm no murmurs no bruits Abdomen: Soft, nontender, good bowel tones, no flank pain Skin: Warm and dry, no rashes Neurologic: Grossly neurologically intact with no obvious asymmetries or abnormalities Extremities: No trauma, well perfused Psych: Cooperative, appropriate insight and affect Initial Vital Signs Initial Vital Signs: Vital Signs Pulse Rate 109 H 07/26/20 13:58 Respiratory Rate 17 07/26/20 13:58 Pulse Oximetry 96 07/26/20 13:58 Course Orders Ordered: ED Orders 07/26/20 13:45 BNP [NT-proBNP (BNP-Adult 18+)] Stat Lipase Stat Troponin & CK Cardiac Panel Stat 07/26/20 13:56 XR chest 1V Stat EKG-12 Lead Stat 07/26/20 14:15 D Dimer Stat Partial Thromboplastin Time Stat Prothrombin Time INR Stat 07/26/20 15:35 CT angio chest PE protocol Stat Heparin Sodium (Porcine) (Heparin 500 Unit/5 Ml Port Flush) 500 unit IV PRN PRN PRN Reason: Flush Discontinued Medications Ondansetron HCl (Ondansetron 4 Mg/2 Ml Inj) 4 mg IV NOW ONE Stop: 07/26/20 15:53 Last Admin: 07/26/20 16:11 Dose: 4 mg Documented by: OCTAVIO Vital Signs Vital signs: Vital Signs - 8 hr 07/26/20 13:58 07/26/20 13:59 07/26/20 14:00 Temperature 98.1 F Pulse Rate 109 H 106 H 107 H Respiratory Rate 17 24 23 Blood Pressure 132/109 H Pulse Oximetry 96 96 97 07/26/20 14:01 07/26/20 14:28 07/26/20 14:30 Temperature 97.6 F Pulse Rate 101 H 100 H Respiratory Rate 23 16 Blood Pressure 156/76 H 157/76 H Pulse Oximetry 96 96 07/26/20 14:36 07/26/20 15:00 07/26/20 15:01 Temperature Pulse Rate 117 H 101 H 102 H Respiratory Rate 22 24 24 Blood Pressure 194/110 H 142/63 H Pulse Oximetry 94 94 94 07/26/20 15:30 07/26/20 16:34 07/26/20 16:35 Temperature Pulse Rate 102 H 69 90 Respiratory Rate 19 20 Blood Pressure 156/85 H 163/74 H Pulse Oximetry 97 95 07/26/20 17:00 07/26/20 17:01 07/26/20 17:30 Temperature Pulse Rate 99 H 98 H 100 H Respiratory Rate 25 H 23 29 H Blood Pressure 138/62 Pulse Oximetry 96 99 96 07/26/20 17:31 Temperature Pulse Rate 101 H Respiratory Rate 28 H Blood Pressure 130/60 Pulse Oximetry 90 L Medical Decision Making Lab Data Lab results reviewed: Yes I reviewed the patient's lab results. Lab results narrative: Lab work was done at the [facility] prior to arrival in all is reviewed. Relatively unremarkable with normal chemistries. She has mild leukopenia with a white count of 2.9 presumably secondary to chemotherapy now 1 week ago. No significant anemia and mild thrombocytopenia. Result diagrams: 07/26/20 13:45 07/26/20 13:45 Labs: Lab Results 07/26/20 07/26/20 07/26/20 Range/Units 13:45 14:15 14:15 PT 12.3 (10.1-12.7) SECONDS INR 1.1 (0.9-1.3) APTT 32 (26.4-36.2) SECONDS D-Dimer 511 H (<230) ng/mL Total Creatine Kinase < 20 L (30-135) U/L CK-MB (CK-2) TNP CK-MB (CK-2) Rel Index TNP Troponin I < 0.012 (0.01-0.034) ng/mL NT-Pro-B Natriuret Pep 34 (<450) pg/mL Lipase 123 (23-300) U/L Urine Dip Bedside Urine Glucose Negative Bedside Urine Bilirubin - Negative Bedside Urine Ketone - Negative Urine Specific [place] 1.015 Bedside Urine Occult Blood - Negative Bedside Urine pH 6.5 Bedside Urine Protein - Negative Bedside Urine Urobilinogen - Negative Bedside Urine Nitrite - Negative Bedside Urine Leukocytes +/- 15 Esterase Point of care testing: Urine Dip Bedside Urine Glucose Negative Bedside Urine Bilirubin - Negative Bedside Urine Ketone - Negative Urine Specific [place] 1.015 Bedside Urine Occult Blood - Negative Bedside Urine pH 6.5 Bedside Urine Protein - Negative Bedside Urine Urobilinogen - Negative Bedside Urine Nitrite - Negative Bedside Urine Leukocytes +/- 15 Esterase ECG Data Attestation: I personally reviewed and interpreted this ECG as follows: Interpretation: Sinus rhythm at a rate of 105 Normal axis, no acute ischemic changes MDM Narrative Medical decision making narrative: Chest pain that has been present and increasing for the last week post starting chemotherapy for her lymphoma. CT scan reveals Previously described 27millimeter right anterior chest wall nodule now measures 2.8 x 1.7 cm in size and is not significantly changed in appearance. Series 4, image 70.this lesion completely corresponds with her area of pain. I suspect that this is metastatic lesion it may be involuting with the recent chemotherapy it may be that she is taking less medication for pain control recently and she had been masking the pain from this area before. There is no evidence of pulmonary embolism, pneumonia, congestive heart failure, overall infection or acute coronary syndrome. I do not suspect that this is reflux or gi in nature. CT scan is reviewed with the patient who does believe that that area of concern does completely correlate with her area of pain. She has a full prescription of oxycodone available to her at home and follow-up scheduled in the near future. At this point she is safe for home discharge. Discharge Plan Departure Patient Disposition: Home Clinical Impression: Anterior chest wall pain Activity Restrictions/Additional Instructions: Thank you for coming in I did not find evidence of heart attack, pneumonia, other infection, blood clots in her lungs or collapsed lungs. We did briefly discuss that area of concern in the chest wall just under your breast that corresponds to the painful site and the spot on the CT scan. Not entirely sure what this is but I am concerned that it is related to your cancer. At this point is entirely safe and appropriate to simply treat the pain and see how things develop is your body continued to respond to your chemotherapy. Using 400 mg of ibuprofen (2 thcs-yxe-wuoptpo pills) and 1 Tylenol every 6 hours can be very helpful in controlling pain. You also have oxycodone at home. Combining oxycodone with this combination of ibuprofen and Tylenol can be even more effective. If you have worsening symptoms or new findings, please feel free to return to the emergency department I hope you enjoy your [place] food dinner tonight! Prescriptions: No Action albuterol sulfate 90 mcg/actuation HFA aerosol inhaler 2 puff INHALATION Q4-6H PRN (Reason: shortness of breath) Qty: 8.5 RF: 1 potassium gluconate 99 MG tablet 2 tab PO HS Qty: 0 RF: 0 naproxen sodium [Aleve] 220 mg capsule 660 mg PO BEDTIME RF: 0 folic acid 0.8 mg capsule 0.8 mg PO DAILY RF: 0 nystatin 100,000 unit/gram powder 1 applic topical TID Qty: 60 RF: 2 oxycodone 5 mg tablet 5 mg PO Q6H PRN (Reason: pain) Qty: 20 RF: 0 acetaminophen 325 mg Tablet 975 mg PO TID Qty: 60 RF: 0 amlodipine 5 mg tablet 2.5 mg PO DAILY RF: 0 prednisone 50 mg Tablet 100 mg PO DAILY Qty: 80 RF: 0 ondansetron HCl [Zofran] 4 mg Tablet 8 mg PO Q8H PRN (Reason: Nausea And Vomiting) Qty: 60 RF: 0 fluconazole 100 mg tablet 100 mg PO DAILY Qty: 30 RF: 0 (DME) Resmed Airsense 10 CPAP Qty: 1 RF: 0 Prilosec OTC 20 mg tablet,delayed release (DR/EC) 20 mg PO BEDTIME RF: 0 Referrals: Lolita Quintero PA-C [Primary Care Provider] -
--- NOTE | 2020-07-26 15:35 | DI.CT.S_ITS ---
PROCEDURE: CT ANGIO CHEST PE PROTOCOL INDICATIONS: Lymphoma, recent chemo, dyspnea and an elevated D-dimer TECHNIQUE: After the administration of intravenous contrast, 2 mm thick sections acquired from the pulmonary apices to the posterior costophrenic angles. 3-dimensional maximum intensity projection (MIP) coronal and sagittal reformats were then acquired through the thorax. For radiation dose reduction, the following was used: automated exposure control, adjustment of mA and/or kV according to patient size. COMPARISON: [place], [place], [place] PET CT FUSION SKULL 2 THIGH, 07/07/2020, 8:23. FINDINGS: Image quality: Excellent. Pulmonary arteries: Pulmonary arteries are normal in size, and demonstrate no intraluminal filling defects to suggest central pulmonary embolism. Subsegmental branches of bilateral pulmonary arteries are suboptimally opacified. Distal small pulmonary emboli cannot be entirely excluded. Lungs and pleura: Lungs are clear. No pleural effusions or pneumothorax. Central and peripheral airways are patent. Mediastinum: Heart size is enlarged, without pericardial effusion. No mediastinal or hilar adenopathy. Thoracic aorta is normal in caliber and enhancement. Esophagus is normal in caliber, with a small hiatal hernia. Right chest wall Port-A-Cath tip is in SVC. Bones and chest wall: No suspicious bony lesions. Ribs and thoracic spine appear intact throughout. Thyroid gland is enlarged with bilateral hypodense thyroid nodules suggestive of nodular goiter. No supraclavicular adenopathy. Previously described 13 millimeter right axillary lymph node with increased metabolic activity now measures approximately 9 mm in short axis diameter series 4, image 53. Previously described 27 millimeter right anterior chest wall nodule now measures 2.8 x 1.7 cm in size and is not significantly changed in appearance. Series 4, image 70. Previously described linear hypermetabolic area involving right inferior right shoulder muscle is not clearly seen on this CT study. Abdomen: Visualized upper abdominal solid organs appear normal in the early arterial phase of enhancement. IMPRESSION: 1. No evidence of central pulmonary embolism. Subsegmental branches of bilateral pulmonary arteries are suboptimally opacified. 2. Lungs are clear. No focal infiltrate, pleural effusion or pneumothorax. 3. Cardiomegaly, no mediastinal or hilar lymphadenopathy by size criteria. 4. Stable appearing right anterior chest wall subcutaneous soft tissue mass. Interval decrease in size of patient's known right axillary lymphadenopathy. 5. Suggestion of multinodular goiter. Dictated by: Chaka Pedroza M.D. on 07/26/2020 at 16:36 Approved by: Chaka Pderoza M.D. on 07/26/2020 at 16:44
[2020-07-26] MEDS: ONDANSETRON 4 MG/2 ML INJ IV (16:11)
== END 2020-07-26 18:31 | disposition home or self-care (01) ==
PROVIDERS: Emergency Provider Emergency Medicine; Family Provider Student in an Organized Health Care Education/Training Program; PCP Student in an Organized Health Care Education/Training Program
DX: R07.89 Other chest pain (principal); R06.00 Dyspnea, unspecified; C83.35 Diffuse large B-cell lymphoma, lymph nodes of inguinal region and lower limb; E83.42 Hypomagnesemia
CPT/HCPCS: 36415; 36591; 71045; 71275; 80053; 81003; 82550; 83690; 83735; 83880; 84484; 85007; 85025; 85379; 85610; 85730; 93005; 96374; 99284; J1642; J2405

== ENCOUNTER → 2020-08-12 11:16 | Outpatient (CLI) | payer MEDICARE, SELFPAY ==
[2020-06-14 14:06] VITALS: BMI 44.9
--- NOTE | 2020-08-12 11:19 | DI.US.S_ITS ---
PROCEDURE: US EXTREMITY NONVASC LOWER RT INDICATIONS: right upper inner thigh mass TECHNIQUE: Real-time scanning was performed of the right groin , with image documentation. COMPARISON: None. FINDINGS: 0.6 x 0.8 x 0.4 cm complex fluid collection seen within the subcutaneous tissues corresponding to the palpable abnormality. There is a small amount of internal vascularity with color flow Doppler. IMPRESSION: Nonspecific subcutaneous complex fluid collection with internal vascularity. Differential would include both benign and malignant etiologies and clinical correlation and management is recommended. Dictated by: Olayinka Olson [facility] Interpreted: Davon Elena MD on 08/12/2020 at 14:23 Approved by: Davon Elena M.D. on 08/13/2020 at 16:37
== END ==
PROVIDERS: Family Provider Student in an Organized Health Care Education/Training Program; PCP Student in an Organized Health Care Education/Training Program; Referring Provider Internal Medicine Hematology & Oncology; Visit Provider Internal Medicine Hematology & Oncology
DX: C83.30 Diffuse large B-cell lymphoma, unspecified site (principal); R22.41 Localized swelling, mass and lump, right lower limb
CPT/HCPCS: 76882

== ENCOUNTER → 2021-01-25 12:30 | Outpatient (CLI) | payer MEDICARE, SELFPAY ==
[2020-06-14 14:06] VITALS: BMI 44.9
--- NOTE | 2021-01-25 13:23 | DI.CT.S_ITS ---
PROCEDURE: CT ABDOMEN PELVIS W CON INDICATIONS: DLBCL, abd pain, weight loss, diarrhea TECHNIQUE: After the administration of oral and IV contrast, axial sections were acquired from the lung bases to the pubic symphysis. Coronal and sagittal reformats were performed. For radiation dose reduction, the following was used: automated exposure control, adjustment of mA and/or kV according to patient size. COMPARISON: [facility], [place], [place] PET CT FUSION SKULL 2 THIGH, 11/24/2020, 7:53. [facility], CT, CT ABDOMEN PELVIS W CON, 06/01/2020, 15:59. FINDINGS: Image quality: Excellent. Lung bases: There is minimal atelectasis. There is a small hiatal hernia. Heart: Normal in size.. ABDOMEN: Liver: Unremarkable. Gallbladder: Surgically absent. Biliary ducts: Unremarkable. Pancreas: Unremarkable. Spleen: Unremarkable. Adrenal Glands: Unremarkable. Kidneys and Ureters: Unremarkable. Stomach and Bowel: Stomach, small bowel loops, and colon are normal in caliber and wall thickness. There is colonic diverticulosis without acute diverticulitis. Peritoneum: No abnormal intraperitoneal fluid. No free air. Ventral Wall: There is a midline ventral wide-mouth abdominal hernia containing a segment of small bowel. No evidence of associated bowel obstruction or definite strangulation. The fascial defect measures up to approximately 9.5 by 7.9 cm. There is associated subcutaneous fat stranding. A surgical scar is also noted within the ventral abdominal wall. Abdominal Nodes: No new retroperitoneal or mesenteric adenopathy by size criteria. There is a small amount of residual tex soft tissue along the celiac axis which appears progressively decreased in size compared to the prior studies. Vessels: Aorta and inferior vena cava are normal in size. PELVIS: Pelvic Organs: The uterus is surgically absent. Bladder: Unremarkable. Pelvic Nodes: No enlarged lymph nodes. Miscellaneous: No inguinal hernias are seen. Bones: Multilevel moderate to severe degenerative changes are demonstrated within the lower thoracic and lumbar spine. IMPRESSION: 1. No evidence of new lymphadenopathy or other evidence of recurrent lymphoma. 2. Mild residual tex soft tissue along the celiac axis appears progressively decreased in size compared to the prior studies. 3. Wide-mouth ventral abdominal hernia containing a segment of small bowel redemonstrated without evidence of bowel obstruction or strangulation. Dictated by: Koko Parrish M.D. on 01/25/2021 at 16:43 Approved by: Koko Parrish M.D. on 01/25/2021 at 16:50
== END ==
PROVIDERS: Family Provider Student in an Organized Health Care Education/Training Program; PCP Student in an Organized Health Care Education/Training Program; Referring Provider Internal Medicine Hematology & Oncology; Visit Provider Internal Medicine Hematology & Oncology
DX: C83.30 Diffuse large B-cell lymphoma, unspecified site (principal); R10.9 Unspecified abdominal pain; R19.7 Diarrhea, unspecified; R63.4 Abnormal weight loss; K44.9 Diaphragmatic hernia without obstruction or gangrene; K57.90 Diverticulosis of intestine, part unspecified, without perforation or abscess without bleeding
CPT/HCPCS: 74177

== ENCOUNTER → 2021-02-04 09:17 | Outpatient (CLI) | payer MEDICARE, SELFPAY ==
[2020-06-14 14:06] VITALS: BMI 44.9
[2021-02-04 11:24] LABS: COVID19 -Nasal RAPID Negative (Negative)
== END ==
PROVIDERS: Family Provider Student in an Organized Health Care Education/Training Program; PCP Student in an Organized Health Care Education/Training Program; Referring Provider Surgery; Visit Provider Surgery
DX: Z01.812 Encounter for preprocedural laboratory examination (principal); Z20.822 Contact with and (suspected) exposure to COVID-19
CPT/HCPCS: 87635; C9803

== ENCOUNTER 2021-02-07 08:22 | Day surgery (SDC) | payer MEDICARE, SELFPAY ==
[2020-06-14 14:06] VITALS: BMI 44.9
[2021-02-07] VITALS (7 sets, daily range): BP systolic 101–149; BP diastolic 49–86; PULSE 72–98; RESP 11–21; TEMP 36.1–36.7; O2SAT 96–100; BMI 41.3
--- NOTE | 2021-02-07 | PATH_ITS ---
[facility] Accession Number: [id number] . 01 Material submitted: . colon - CECUM POLYP . 02 Diagnosis: Cecal Polyp, Biopsy: Tubular adenoma. MRV 02/10/2021 0946 Local . 02 Electronically signed: . Kishan Sky MD, PhD, Pathologist NPI- [id number] . 01 Gross description: . CECUM POLYP: Received in formalin are 2 fragment(s) of barnes, soft tissue measuring 0.3 x 0.2 x 0.2 cm to 0.3 x 0.2 x 0.1 cm submitted entirely in 1 cassette(s) /ROSIE 02/08/2021 0550 Local . 02 Pathologist provided ICD-10: D12.0 . 02 CPT . 696826 Performed at: 01 [facility] [address] [place] [address], [place], [place] [id number] MD Koko Jasso MD Phone: [phone] Performed at: 02 [facility] [address] [place], [place] [id number] MD Rochelle Jay MD Phone: [phone]
[2021-02-07] MEDS: LACTATED RINGERS 1,000 ML 200 ML IV (09:01)
--- NOTE | 2021-02-07 09:16 | PM.HP.1 ---
History of Present Illness History of Present Illness Date Patient Seen: 02/07/21 Time Patient Seen: 09:16 Chief complaint: SDC Narrative: 75-year-old woman history lymphoma who is referred for colonoscopy secondary to abnormal uptake PET scan of the sigmoid colon. She had previous colonoscopy approximately 6 years ago significant for benign polyps. She has been undergoing chemotherapy over the course of the past 1 here and has chronic abnormal bowel function including diarrhea which is attributed to chemotherapy. No personal or family history of intestinal malignancy. Patient History Medical History Ankylosing spondylitis of lumbosacral region Anxiety Arthritis Bakers cyst Johnson's esophagus Depression Diverticulitis Inflammatory bowel diseases (IBD) Left knee pain Lower back pain Morbid obesity with BMI of 45.0-49.9, adult Obstructive sleep apnea of adult Osteoporosis Primary insomnia Psoriatic arthropathy Right shoulder pain Seasonal allergies Ulcer Surgical History H/O: hysterectomy (~1991) History of arthroplasty of left knee (09/27/16) History of tonsillectomy and adenoidectomy Hx of bilateral cataract extraction Hx of cholecystectomy Hx of resection of small bowel (~2013) Hx of thumb surgery Hx of total knee arthroplasty S/P colon resection (~1991) S/P total knee arthroplasty Family & Social History Family History Mother Hypertension Social History: household members spouse Tobacco & Substance use: Smoking Status Never smoker alcohol intake never Substance Use Type does not use Meds Home Medications and Allergies Home Medications Medication Instructions Recorded Confirmed Type potassium gluconate 595 mg (99 mg) 2 tab PO HS #0 09/20/16 11/01/20 History tablet Resmed Airsense 10 CPAP #1 ea 07/30/18 11/01/20 History albuterol sulfate 90 mcg/actuation 2 puff INHALATION Q4-6H PRN #8.5 09/06/18 11/01/20 Rx aerosol inhaler gram acetaminophen 325 mg tablet 975 mg PO TID #60 tab 03/02/19 11/01/20 Rx amlodipine 5 mg tablet 2.5 mg PO DAILY 06/14/20 11/01/20 History naproxen sodium 220 mg capsule 660 mg PO BEDTIME 06/16/20 11/01/20 History (Aleve) diphenoxylate-atropine 2.5 1 tab PO DAILY PRN 01/20/21 01/20/21 History mg-0.025 mg tablet (Lomotil) hyoscyamine sulfate 0.125 mg/5 mL 5 ml PO Q4-6H PRN 01/20/21 01/20/21 History oral elixir (Hyosyne) Allergies Allergy/AdvReac Type Severity Reaction Status Date / Time trimethoprim [From Bactrim] Allergy Severe Gastrointestinal Verified 07/21/20 14:03 Upset lisinopril Allergy Mild Verified 02/07/21 08:38 cephalexin [From Keflex] Allergy Unknown Rash Verified 07/21/20 14:03 sulfamethoxazole Allergy Unknown Verified 07/21/20 14:03 [From Bactrim] ciprofloxacin Allergy Verified 02/07/21 08:38 olive extract [OLIVE] AdvReac Severe DIARRHEA Verified 07/21/20 14:03 quinine [QUININE] AdvReac Severe DIARRHEA Verified 07/21/20 14:03 Sulfa (Sulfonamide AdvReac Mild GI upset Verified 07/21/20 14:03 Antibiotics) Exam Vital Signs (past 8 hours): - 02/07/21 08:44 Temperature 97.3 F L Pulse Rate 98 H Respiratory Rate 18 Blood Pressure 149/86 H Pulse Oximetry 100 Oxygen Delivery Method Room Air Narrative Exam Narrative: General elderly woman alert oriented no acute distress Chest nonlabored respirations Abdomen soft nontender Extremities warm well perfused Assessment & Plan Assessment and plan (1) Abnormal PET scan of colon: Status: Acute Assessment & Plan narrative: The patient requires colorectal screening and colonoscopy is recommended. Technical details were discussed. Risks, benefits, alternatives explained. Risks including but not limited to myocardial infarction, aspiration, bleeding, pain, missed lesion, incomplete examination, need for further radiographic studies, colonic perforation, and need for major abdominal surgery were discussed. All questions were answered to their satisfaction, and they are in agreement with this plan. Time Spent With Patient Critical Care time: I spent a total of [] minutes of critical care time on this patient's care today; this time is exclusive of procedural time.
[2021-02-07] MEDS: MIDAZOLAM 5 MG/5 ML VIAL IV (09:21)
[2021-02-07] MEDS: fentaNYL 250 MCG/5 ML INJ IV (09:21)
--- NOTE | 2021-02-07 09:36 | P.OP.COLON_ITS ---
Operative Date/Time/Diagnoses Date of procedure: 02/07/21 Time of procedure: 09:36 Pre-op diagnosis: Abnormal PET scan of colon, history of colonic polyps Post-op diagnosis: same Procedure & Clinicians Study performed: Colonoscopy Same procedure as scheduled: Yes Indications: Abnormal PET scan of colon, personal history of colonic polyps Surgeon: Mitchell Ramesh Procedure Notes Procedure in detail: Medications: Conscious sedation using 4mg IV midazolam and 50mcg IV of fentanyl The history and physical was performed/updated and the patient is ASA class is 3. The procedure was discussed in detail with the patient. Potential risks complications including infection, bleeding, missed diagnosis, perforation, need for surgery, and were explained. Their questions were answered and informed consent was obtained. Patient was brought to the procedure room and placed standard monitoring equipment. The patient's vital signs were monitored continuously throughout the entire procedure. Prior to starting time-out was performed. The patient was placed in the left lateral recumbent position. Procedural sedation was administered. Examination began with a thorough inspection of the perianal area there was no evidence of fissures, fistulae, external hemorrhoids or cutaneous malignancy. The colonoscopy scope was then placed into the anal canal and was advanced to the cecum, which was identified by the ileocecal valve, the appe ndiceal orifice and the confluence of the taenia. The scope was then slowly withdrawn examining colon thoroughly in all directions, irrigating it of any residual stool. FINDINGS 1. Sigmoid colon or an abnormal PET scan was noted was normal in its appearance except for diverticulosis. 2. 5 Mm polyp of the cecum removed with biopsy forceps The patient tolerated the procedure well. They will be discharged once criteria are met. The prep was of good/excellent quality. The withdrawl time was 8 minutes. The sedation time was 15 minutes. Specimen(s): other (Cecum) Complications: none Impression: Colonic polyp, diverticulosis Post-procedure Recommendations: Colonoscopy in 5 years Disposition: same day surgery
--- NOTE | 2021-02-07 10:31 | SUR.PHASEII ---
Belly soft, tolerated flds, ready to go, left unit in stable condition.
== END 2021-02-07 10:36 | disposition home or self-care (01) ==
PROVIDERS: Family Provider Student in an Organized Health Care Education/Training Program; PCP Student in an Organized Health Care Education/Training Program; Referring Provider Surgery; Visit Provider Surgery
PROC: 0DJD8ZZ Inspection of Lower Intestinal Tract, Via Natural or Artificial Opening Endoscopic (ICD-10-PCS; CPT 45378; principal; 2021-02-07 09:15)
DX: K57.30 Diverticulosis of large intestine without perforation or abscess without bleeding (principal); Z86.010 Personal history of colon polyps; D12.0 Benign neoplasm of cecum
CPT/HCPCS: 45380; 99152; J2250; J3010

== ENCOUNTER → 2021-03-02 12:41 | Outpatient (CLI) | payer MEDICARE, SELFPAY ==
[2020-06-14 14:06] VITALS: BMI 44.9
== END ==
PROVIDERS: Family Provider Student in an Organized Health Care Education/Training Program; PCP Student in an Organized Health Care Education/Training Program; Referring Provider Student in an Organized Health Care Education/Training Program; Visit Provider Student in an Organized Health Care Education/Training Program
DX: Z13.820 Encounter for screening for osteoporosis (principal); M85.852 Other specified disorders of bone density and structure, left thigh; Z78.0 Asymptomatic menopausal state; E21.3 Hyperparathyroidism, unspecified; Z82.62 Family history of osteoporosis
CPT/HCPCS: 77080

== ENCOUNTER → 2021-08-05 10:01 | Outpatient (CLI) | payer MEDICARE, SELFPAY ==
[2020-06-14 14:06] VITALS: BMI 44.9
--- NOTE | 2021-08-05 10:04 | DI.CT.S_ITS ---
PROCEDURE: CT CHEST ABD PEL W CON INDICATIONS: DLBVCL TECHNIQUE: After the administration of oral and intravenous contrast, axial sections acquired from the supraclavicular neck to the pubic symphysis. Coronal and sagittal reformats were performed. For radiation dose reduction, the following was used: automated exposure control, adjustment of mA and/or kV according to patient size. COMPARISON:[facility], CT, CT ANGIO CHEST PE PROTOCOL, 07/26/2020, 15:37. [facility], CT, CT ABDOMEN PELVIS W CON, 01/25/2021, 13:30. FINDINGS: Image quality: Excellent. CHEST: Lower Neck: No enlarged lymph nodes. Thyroid: Multinodular change. Axillae: No enlarged lymph nodes. Chest Wall: Unremarkable. Interval resolution of the previously described right anterior chest wall mass. Lungs and Airways: No consolidation or suspicious nodules. Pleura: No pneumothorax or pleural effusions. Heart: Heart size is normal. No pericardial effusion. Thoracic Vessels: The aorta and pulmonary arteries demonstrate normal size. Mediastinum and Isis: No enlarged lymph nodes. Esophagus: No wall thickening. Small hiatal hernia. ABDOMEN: Liver: Unremarkable. Gallbladder: Surgically absent. Biliary ducts: Unremarkable. Pancreas: Unremarkable. Spleen: Unremarkable. Adrenal Glands: Unremarkable. Kidneys and Ureters: Symmetric enhancement without evidence of obstructive uropathy. Cortical and parapelvic hypoattenuating lesions are seen, compatible with cysts. Stomach and Bowel: No evidence of intestinal obstruction or inflammatory change. Colonic diverticulosis without overt diverticulitis. The appendix appears normal. Peritoneum: No abnormal intraperitoneal fluid. No free air. Ventral Wall: Redemonstrated diastasis of the rectus muscles with suggestion of ventral hernia repair. Infiltrative changes of the ventral subcutaneous fat is seen with a fluid collection measuring approximately 2.6 x 4.8 cm. Abdominal Nodes: No retroperitoneal or mesenteric adenopathy by size criteria. Vessels: Aorta and inferior vena cava are normal in size. PELVIS: Pelvic Organs: Unremarkable. Bladder: Unremarkable. Pelvic Nodes: No enlarged lymph nodes. Miscellaneous: No inguinal hernias are seen. Bones: Multifocal degenerative change. Prominent kyphosis. No suspicious osseous lesion is appreciated. IMPRESSION: 1. No significant intrathoracic abnormality. 2. No significant intra-abdominal/pelvic abnormality. 3. No evidence of new lymphadenopathy or recurrent lymphoma. 4. Postsurgical change of the ventral soft tissues as detailed above. Dictated by: Nelson Lim M.D. on 08/05/2021 at 13:43 Approved by: Nelson Lim M.D. on 08/05/2021 at 13:53
== END ==
PROVIDERS: Family Provider Student in an Organized Health Care Education/Training Program; PCP Student in an Organized Health Care Education/Training Program; Referring Provider Internal Medicine Hematology & Oncology; Visit Provider Internal Medicine Hematology & Oncology
DX: C83.30 Diffuse large B-cell lymphoma, unspecified site (principal); M62.08 Separation of muscle (nontraumatic), other site
CPT/HCPCS: 71260; 74177; Q9967

== ENCOUNTER → 2022-02-03 08:26 | Outpatient (CLI) | payer MEDICARE, SELFPAY ==
[2020-06-14 14:06] VITALS: BMI 44.9
--- NOTE | 2022-02-03 08:30 | DI.CT.S_ITS ---
PROCEDURE: CT CHEST ABD PEL W CON INDICATIONS: diffuse large b cell lymphoma TECHNIQUE: After the administration of oral and intravenous contrast, axial sections acquired from the supraclavicular neck to the pubic symphysis. Coronal and sagittal reformats were performed. For radiation dose reduction, the following was used: automated exposure control, adjustment of mA and/or kV according to patient size. COMPARISON: [facility], CT, CT CHEST ABD PEL W CON, 08/05/2021, 11:12. FINDINGS: Image quality: Excellent. CHEST: Lower Neck: No enlarged lymph nodes. Thyroid: Within normal limits. Axillae: No enlarged lymph nodes. Chest Wall: Unremarkable. Lungs and Airways: No consolidation or suspicious nodules. Pleura: No pneumothorax or pleural effusions. Heart: Heart size is normal. No pericardial effusion. Thoracic Vessels: The aorta and pulmonary arteries demonstrate normal size. Mediastinum and Isis: No enlarged lymph nodes. Esophagus: No wall thickening. There is a moderate-sized hiatal hernia. ABDOMEN: Liver: Unremarkable. Gallbladder: Surgically absent. Biliary ducts: Unremarkable. Pancreas: Unremarkable. Spleen: Unremarkable. Adrenal Glands: Unremarkable. Kidneys and Ureters: Unremarkable. Low-density cystic lesions are present at the lower pole of the left kidney. Stomach and Bowel: Stomach, small bowel loops, and colon are unremarkable. There are scattered sigmoid diverticula. No evidence for diverticulitis. Peritoneum: No abnormal intraperitoneal fluid. No free air. Ventral Wall: No hernia. Abdominal Nodes: No retroperitoneal or mesenteric adenopathy by size criteria. Vessels: Aorta and inferior vena cava are normal in size. PELVIS: Pelvic Organs: Unremarkable. Bladder: Unremarkable. Pelvic Nodes: No enlarged lymph nodes. Miscellaneous: No inguinal hernias are seen. Bones: Unremarkable. IMPRESSION: 1. No findings to suggest tumor recurrence or metastasis. Dictated by: Ambreen Laguerre M.D. on 02/03/2022 at 13:54 Approved by: Ambreen Laguerre M.D. on 02/03/2022 at 14:45
== END ==
PROVIDERS: Family Provider Student in an Organized Health Care Education/Training Program; PCP Student in an Organized Health Care Education/Training Program; Referring Provider Internal Medicine Hematology & Oncology; Visit Provider Internal Medicine Hematology & Oncology
DX: C83.30 Diffuse large B-cell lymphoma, unspecified site (principal)
CPT/HCPCS: 71260; 74177; Q9967

== ENCOUNTER → 2022-03-27 11:50 | Outpatient (CLI) | payer MEDICARE, SELFPAY ==
[2020-06-14 14:06] VITALS: BMI 44.9
--- NOTE | 2022-03-27 | DI.CT.S_ITS ---
PROCEDURE: CT SHOULDER RIGHT WITHOUT CON INDICATIONS: Primary osteoarthritis, right shoulder TECHNIQUE: Noncontrast 1-1.5 mm thick sections acquired from the acromioclavicular joint to the inferior scapula, with coronal and sagittal reformatting. COMPARISON: None. FINDINGS: Image quality: Excellent. Bones: There is severe osteoarthritic type degenerative change involving the right glenohumeral joint. There is also some mild AC joint degenerative change. There is no evidence for acute fracture or dislocation. There is a 5 mm loose body within the posterior shoulder joint as well as at 2-3 mm loose body with in what I suspect is the bicipital groove. There a small shoulder joint effusion present. Soft tissues: Soft tissues appear within normal limits. IMPRESSION: 1. Severe osteoarthritic type degenerative change involving the glenohumeral joint. 2. Mild AC joint degenerative change. 3. 5 mm loose body within the posterior shoulder joint 4. Small 2-3 mm loose body in the bicipital groove. Dictated by: Troy Puckett M.D. on 03/27/2022 at 14:13 Approved by: Troy Puckett M.D. on 03/27/2022 at 14:19
== END ==
PROVIDERS: Family Provider Student in an Organized Health Care Education/Training Program; PCP Student in an Organized Health Care Education/Training Program; Referring Provider Orthopaedic Surgery; Visit Provider Orthopaedic Surgery
DX: M19.011 Primary osteoarthritis, right shoulder (principal); M24.011 Loose body in right shoulder
CPT/HCPCS: 73200

== ENCOUNTER → 2022-05-24 10:10 | Outpatient (CLI) | payer MEDICARE, SELFPAY ==
[2020-06-14 14:06] VITALS: BMI 44.9
[2022-05-24 10:57] LABS: Add Manual Diff / Slide Review NO; Basophils Absolute Auto 0 /uL (0-100); Basophils Percent Auto 0.6 % (0-2); Eosinophils Absolute Auto 100 /uL (0-450); Eosinophils Percent Auto 2.2 % (2-4); Hemoglobin 14.4 g/dL (12.0-16.0); Lymphocytes Absolute Auto 1700 /uL (1100-4500); Lymphocytes Percent Auto 39.4 % (25-40); Mean Corpuscular HGB Conc 34.3 % (30-36); Mean Corpuscular Hemoglobin 29.3 PG (26-34); Mean Corpuscular Volume 85.4 fL (80-100); Monocytes Absolute Auto 500 /uL (0-900); Monocytes Percent Auto 12.3 % (3-14); Neutrophils Absolute Auto 1900 /uL (1500-7000); Neutrophils Percent Auto 45.5 % (50-75); Platelet Count 172 X10^3/uL (150-400); Red Blood Cell Count 4.92 X10^6/uL (4.0-5.2); Red Cell Distribution Width 14.9 % (11.6-14.8); White Blood Cell Count 4.2 X10^3/uL (4.5-11.0)
[2022-05-24 11:12] LABS: BUN Creatinine Ratio 25.6 (6-22); Blood Urea Nitrogen 20 mg/dL (7-17); Calcium 10.1 mg/dL (8.4-10.2); Carbon Dioxide 31 mmol/L (22-32); Chloride 107 mmol/L (98-107); Estimated Glomerular Filt Rate > 60 mL/min (>60); Glucose 98 mg/dL (80-110); HEMOLYSIS 28 (0-50); Potassium 4.7 mmol/L (3.4-5.1); Sodium 140 mmol/L (137-145)
== END ==
PROVIDERS: Family Provider Student in an Organized Health Care Education/Training Program; PCP Student in an Organized Health Care Education/Training Program; Referring Provider Orthopaedic Surgery; Visit Provider Orthopaedic Surgery
DX: Z01.818 Encounter for other preprocedural examination (principal); Z01.812 Encounter for preprocedural laboratory examination
CPT/HCPCS: 36415; 80048; 85025; 93005

== ENCOUNTER 2022-06-14 13:01 | Inpatient (IN) | payer MEDICARE, SELFPAY ==
[2020-06-14 14:06] VITALS: BMI 44.9
[2022-06-05 09:40] VITALS: BMI 45.3
[2022-06-14] VITALS (15 sets, daily range): BP systolic 113–187; BP diastolic 71–122; PULSE 79–113; RESP 16–92; TEMP 36.1–36.4; O2SAT 20–98; BMI 45.3; BMI 46.6
--- NOTE | 2022-06-14 06:00 | DI.RAD.S_ITS ---
PROCEDURE: XR SHOULDER RT 1V INDICATIONS: prosthesis placement TECHNIQUE: Single views of the shoulder were acquired. COMPARISON: None. FINDINGS: Bones: Total right shoulder prosthesis in good position. Overlying postprocedural air present. No pneumothorax. Soft tissues: No suspicious soft tissue calcifications. IMPRESSION: Total right shoulder prosthesis in good position Approved by: Davon Elena M.D. on 06/14/2022 at 17:51
[2022-06-14] MEDS: LACTATED RINGERS 1,000 ML 84 ML IV ×2 (14:12→17:50)
[2022-06-14 14:51] LABS: COVID19 -Nasal RAPID Negative (Negative)
[2022-06-14] MEDS: CELECOXIB 200 MG CAPSULE PO (15:03)
[2022-06-14] MEDS: ACETAMINOPHEN 325 MG TABLET 975 MG PO (15:04)
--- NOTE | 2022-06-14 15:06 | PM.PREOP ---
Pre-operative Note COVID-19 COVID-19 status: Negative Result date/Date tested (Pos, Neg/Pending): 06/14/22 Interval Note History & Physical reviewed/Exam performed by Physician: Yes Changes to H&P: No
[2022-06-14] MEDS: PREGABALIN 75 MG CAPSULE PO (15:09)
--- NOTE | 2022-06-14 16:02 | SUR.PREOP ---
Block start time [1535] . Monitoring initiated and maintained throughout procedure. Oxygen and medications given per anesthesiologist. Patient remained stable throughout procedure, no adverse reactions noted. Block end time [1547].
[2022-06-14] MEDS: TRANEXAMIC ACID 1,000 MG VIAL 1000 MG INJ ×2 (16:15→17:30)
[2022-06-14] MEDS: CEFAZOLIN 2 GM/100 ML PREMIX 100 ML IV ×2 (16:20→21:43)
--- NOTE | 2022-06-14 16:29 | SUR.OPER ---
Beach chair with Schlein shoulder positioner. Lower body on padded OR bed. Head in foam padded head cradle, secured with straps. Non-operative arm secured <90 degrees abduction. Pillow under knees. Safety belt at thigh. Cloth tape over blanket over lower legs.
[2022-06-14] MEDS: BUPIVACAINE 0.5% W/ EPI (PF) 30 ML VIAL INJ (16:39)
--- NOTE | 2022-06-14 17:49 | PM.OP.1 ---
Operative Date/Time/Diagnoses Date of procedure: 06/14/22 Time of procedure: 17:49 Pre-op diagnosis: Right shoulder psoriatic arthritis Post-op diagnosis: same Procedure & Clinicians Procedure: Right reverse total shoulder replacement Same procedure as scheduled: Yes Indications: The patient has had progressively worsening right shoulder pain with radiographic changes consistent with arthritis. Non-operative management has failed and the patient has requested total shoulder replacement. The risks, benefits and alternatives to surgery were discussed with the patient prior to proceeding. Risks discussed included, but were not limited to, failure to relieve pain, stiffness, infection, nerve damage, deep venous thrombosis, pulmonary embolism, stroke, coma, heart attack, permanent paralysis and , as well as the potential need for eventual revision of the prosthetic. Surgeon: Ton Arana Interventionist: Rochelle Ervin Click Yes if Unassisted: No Anesthesia Type: General, Peripheral nerve block and Local Operative Notes Findings: Severe erosive arthritis with significant synovial inflammation. Closure Type: primary Specimen(s): none sent Prosthetic devices, grafts, tissues, transplants, or devices: Implants used in this procedure were made by the [employer] and included a 30 mm screw length RSP glenoid base plate with 4 locking screws measuring 5.0 mm in diameter and 14, 14, 14 and 26 mm in length. There was a 32 mm -4 glenoid head with retaining screw and a 6 mm small shell humeral stem with a 32 mm small socket neutral +4 E plus insert. Applied: implant(s) Estimated Blood Loss (mL): 200 Blood products transfused: none Procedure in detail: The patient was seen in the preoperative area where they identified the left shoulder as the operative site and this was marked with my initials. They received preoperative antibiotics and underwent the induction of an interscalene block. They were taken to the operating room and placed on the operating room table in a supine position with the underwent the induction of a general anesthetic. There were then repositioned in the ?beach chair? position using a dedicated positioner. All pressure points were well padded. The knees were slightly bent to prevent tension on the sciatic nerves. A multimedia production assistant-out was performed. The left arm was prepared from the fingertips to the base of the neck with ChloraPrep in the usual fashion and draped through sterile drapes. An approximately 15 cm incision was created starting at the clavicle just above the coracoid and going to the deltoid insertion. The deltopectoral interval was used to access the shoulder taking the vein to the lateral side. The vein was unfortunately damaged during the case and ligated. The upper 1 cm of the pectoralis major was released. The biceps tendon was identified and used as a guide to releasing the remaining subscapularis. The biceps itself was tenotomized. The subscapularis was tagged for possible later repair. The shoulder was dislocated and a proximal humeral osteotomy performed using an extramedullary guide. A proximal humeral protector was then placed. Retractors were placed access the glenoid. A 360 degree release was performed of the subscapularis with care being taken to protect the axillary nerve. The soft tissues were removed circumferentially around the glenoid. The guide was used to drill the guide hole in the center of the inferior glenoid. The tap was placed and used as a guide for the reamer. The tap was then removed and the glenoid base plate inserted. The peripheral locking screws were then placed through the appropriate guide. A trial glenoid head was applied. We then turned our attention to the humerus. The proximal humeral protector was removed. Cylindrical reamers were used to size the canal, which was a size 8. Broaching was then performed beginning with a size 6 broach, which had extremely firm fit, so I elected not to attempt to broach with the size 8. The guide for the proximal metaphyseal reamer was then applied and the metaphysis was reamed appropriately. The trial metaphyseal portion of the body was then applied to the broach. Trial reductions were performed and the size of the glenoid head and the cup were optimized. Stability was checked in maximal internal and external rotation and range of motion was checked to allow access to the top of the head, internal rotation to an excess of 50? in the ?scarecrow position? and the ability to reach the groin. The appropriate final prosthetic components were then opened. The glenoid head was impacted into position and checked for rotational and axial stability before placing the set screw. The humeral prosthetic was then impacted into position. The humeral cup was placed. The joint was relocated and irrigated. The subscapularis was not repairable due to the lateralization of the humerus and due to the thin nature of the humeral bone after reaming for the cup. The deltopectoral interval was reapproximated with 0 Vicryl. Subcutaneous layer was closed with interrupted 3-0 Vicryl and skin with a running 3 0 V lock suture. Subcutaneous tissues were then infiltrated with 0.5% Marcaine for postoperative pain control. An Aquacel Ag dressing was applied and the patient's arm was placed in a sling. The patient was then transferred to the recovery room in good condition having tolerated the procedure well. The services of a skilled assembler surgical garment were necessary for this case to provide exposure, especially for the glenoid and retraction to protect vital structures. Without the assistance of Russel Arcadio, the procedure could not have been completed in a safe, expedient fashion. Complications: none Post-operative Condition: stable Disposition: PACU Plan for aftercare: The patient will be allowed to use her right hand in front of her body below shoulder level for 6 weeks as long as she lifts no more than 1-2 lb. She will then be advanced with physical therapy. She will likely be hospitalized overnight and discharged tomorrow.
[2022-06-14] MEDS: ALBUTEROL/IPRATROPIUM 3 ML AMPUL INH (18:15)
[2022-06-14] MEDS: ONDANSETRON 4 MG/2 ML INJ IV (18:34)
[2022-06-14] MEDS: hydrOXYzine 50 MG/ML INJ IM (18:38)
--- NOTE | 2022-06-14 19:55 | SUR.PHASEI ---
Pt transferred in bed to room 229 on 10l simple mask with O2 sat 95% and pt belongings bag and CPAP mask. SBAR report to Cindy PAREKH. at bedside.
[2022-06-14] MEDS: LACTATED RINGERS 1,000 ML 100 ML IV (20:37)
[2022-06-14] MEDS: ASPIRIN EC 81 MG TABLET PO (20:42)
[2022-06-14] MEDS: DOCUSATE 100 MG CAPSULE PO (20:43)
[2022-06-14] MEDS: PANTOPRAZOLE DR 40 MG TABLET PO (20:43)
[2022-06-14] MEDS: AMLODIPINE 5 MG TABLET 2.5 MG PO (20:44)
[2022-06-14 22:40] LABS: MRSA (Nasal) PCR Not Detected (Not Detect)
[2022-06-15] VITALS: BP 137/83; PULSE 80; RESP 22; TEMP 36.3; O2SAT 92
[2022-06-15] MEDS: OXYCODONE IR 5 MG TABLET PO ×2 (02:47→11:40)
--- NOTE | 2022-06-15 03:13 | PC.NURSE ---
0300- Patient repositioned and medicated for pain. Patient noted to have a grapefruit size hematoma to the right upper arm below the surgical incision. Patient states she does not have pain at the hematoma site. Good distal pulse appreciated and CMS is WNL. Will monitor.
[2022-06-15 03:47] LABS: Hematocrit 39.7 % (36-46); Hemoglobin 13.2 g/dL (12.0-16.0)
[2022-06-15 04:00] VITALS: BP 126/73; PULSE 80; RESP 17; TEMP 36.3; O2SAT 97
[2022-06-15] MEDS: CEFAZOLIN 2 GM/100 ML PREMIX 100 ML IV (06:36)
[2022-06-15] MEDS: ACETAMINOPHEN 325 MG TABLET 650 MG PO (06:36)
[2022-06-15 07:50] VITALS: BP 120/73; PULSE 80; RESP 21; TEMP 36.2; O2SAT 95
[2022-06-15] MEDS: MELOXICAM 7.5 MG TABLET PO (09:17)
[2022-06-15] MEDS: DOCUSATE 100 MG CAPSULE PO (09:17)
[2022-06-15] MEDS: ASPIRIN EC 81 MG TABLET PO (09:18)
[2022-06-15] MEDS: AMLODIPINE 5 MG TABLET PO (09:19)
--- NOTE | 2022-06-15 10:27 | PM.DS.1 ---
History of Present Illness History of Present Illness Date Patient Seen: 06/15/22 Time Patient Seen: 10:28 Chief complaint: Shoulder pain Narrative: Patient states her right shoulder pain has been mild. Denies fever or chills. No nausea or vomiting. Patient was able to get up and use the bathroom this morning. She is not yet worked physical therapy. Patient has assistance at home. Discharge Providers Provider Date of admission: 06/14/22 13:01 Discharge Date: 06/15/22 Primary care physician: Lolita Quintero PA-C Consults: 06/14/22 19:58 Consult to Discharge Planning Routine Comment: Consult to Physical Therapy Evaluate & Treat Comment: Physician Instructions: pendulums only Discharge provider: Kvng Gonzalez PA-C Summary Hospital Course Discharge Diagnosis: Right shoulder psoriatic arthritis Hospital Course: Right reverse total shoulder replacement Same procedure as scheduled: Yes Indications: The patient has had progressively worsening right shoulder pain with radiographic changes consistent with arthritis. Non-operative management has failed and the patient has requested total shoulder replacement. The risks, benefits and alternatives to surgery were discussed with the patient prior to proceeding. Risks discussed included, but were not limited to, failure to relieve pain, stiffness, infection, nerve damage, deep venous thrombosis, pulmonary embolism, stroke, coma, heart attack, permanent paralysis and , as well as the potential need for eventual revision of the prosthetic. Surgeon: Ton Arana Barrel Charrer Helper: Rochelle Ervin Click Yes if Unassisted: No Anesthesia Type: General, Peripheral nerve block and Local Operative Notes Findings: Severe erosive arthritis with significant synovial inflammation. Closure Type: primary Specimen(s): none sent Prosthetic devices, grafts, tissues, transplants, or devices: Implants used in this procedure were made by the [employer] and included a 30 mm screw length RSP glenoid base plate with 4 locking screws measuring 5.0 mm in diameter and 14, 14, 14 and 26 mm in length.? There was a 32 mm -4 glenoid head with retaining screw and a 6 mm small shell humeral stem with a 32 mm small socket neutral +4 E plus insert. Applied: implant(s) Estimated Blood Loss (mL): 200 Patient admitted to the hospital for right reverse total shoulder replacement. Patient consented to the same. Patient underwent right reverse total shoulder replacement on June 14, 2022. Patient back in her room recovering well as in stable condition. Patient will be allowed to use her right hand in front of her for her body below shoulder level for 6 weeks as long as she lift no more than 1-2 lb. Patient will then be advanced with physical therapy. Patient will work with Physical therapy this morning. She will be discharged home today if safe for home environment. Status at Discharge Cognitive/behavioral status at discharge: at baseline, oriented Overall status at discharge: patient is progressing back to baseline Exam Vital Signs (past 8 hours): - 06/15/22 03:16 06/15/22 04:00 06/15/22 07:50 Temperature 97.3 F L 97.2 F L Pulse Rate 80 80 Respiratory Rate 17 21 Blood Pressure 126/73 120/73 Pulse Oximetry 97 95 Oxygen Delivery Method Nasal Cannula CPAP Oxygen Flow Rate 2 0 06/15/22 07:00 Temperature Pulse Rate Respiratory Rate Blood Pressure Pulse Oximetry Oxygen Delivery Method Nasal Cannula CPAP Oxygen Flow Rate Oxygen Delivery Method Nasal Cannula,CPAP Oxygen Flow Rate 0 Narrative Exam Narrative: Pleasant 76-year-old female resting comfortably in bed in no apparent distress. Right shoulder dressing is clean, dry and intact. Motor functions intact distal right upper extremity. Sensation grossly intact to light touch distal right upper extremity. Const General: cooperative and comfortable Nutritional Appearance: well nourished and obese (BMI 46.6) Orientation: alert Resp Effort & Inspection: normal respiratory effort and able to speak in complete sentences Objective Labs 06/15/22 03:28 Labs: Laboratory Results - last 24 hr 06/14/22 06/14/22 06/15/22 14:00 21:10 03:28 Hgb 13.2 Hct 39.7 Nasal Screen MRSA (PCR) Not detected SARS-CoV-2 (PCR) Negative [facility] Medical History Anesthesia complication Ankylosing spondylitis of lumbosacral region Anxiety Arthritis Bakers cyst Johnson's esophagus COVID-19 virus infection (09/2021) Depression Diverticulitis Inflammatory bowel diseases (IBD) Left knee pain Lower back pain Morbid obesity with BMI of 45.0-49.9, adult Obstructive sleep apnea of adult Osteoporosis Primary insomnia Psoriatic arthropathy Right shoulder pain Seasonal allergies Ulcer Surgical History H/O: hysterectomy (~1991) History of arthroplasty of left knee (09/27/16) History of removal of Port-a-Cath (10/2020) History of surgery (07/13/20) History of tonsillectomy and adenoidectomy History of total right knee replacement (02/28/19) Hx of bilateral cataract extraction Hx of cholecystectomy Hx of colonoscopy (02/07/21) Hx of hernia repair (01/2021) Hx of resection of small bowel (~2013) Hx of thumb surgery S/P colon resection (~1991) S/P total knee arthroplasty Family History Mother Hypertension Social History marital status: unknown household members: spouse Smoking Status: Never smoker alcohol intake: former substance use type: does not use Discharge Assessment & Plan Assessment and Plan Assessment: Patient progressing as expected status post right reverse total shoulder replacement Plan of Treatment: The patient will be allowed to use her right hand in front of her body below shoulder level for 6 weeks as long as she lifts no more than 1-2 lb.? She will then be advanced with physical therapy.? Multimodal pain management Discharge home today after physical therapy if safe for home environment. Discharge Plan Discharge Plan Patient Disposition: Home Discharge orders & Medications Prescriptions: New aspirin 81 mg Tablet,Delayed Release (Dr/Ec) 81 mg PO BID Qty: 60 0RF docusate sodium 100 mg Capsule 100 mg PO BID Qty: 10 0RF oxycodone 5 mg Tablet 5 mg PO Q3HR PRN (Reason: Pain, Moderate (4-6)) Qty: 30 0RF Continued albuterol sulfate 90 mcg/actuation HFA aerosol inhaler 2 puff INHALATION Q4-6H PRN (Reason: shortness of breath) Qty: 8.5 1RF Label Comments: on exertion. cold weather potassium gluconate 99 MG tablet 2 tab PO HS Qty: 0 amlodipine 5 mg tablet 2.5 mg PO BEDTIME diphenoxylate-atropine [Lomotil] 2.5-0.025 mg Tablet 1 tab PO DAILY PRN (Reason: Diarrhea) hyoscyamine sulfate [Hyosyne] 0.125 mg/5 mL Elixir 5 ml PO Q4-6H PRN (Reason: Cramps, IBS) meloxicam 15 mg Tablet 7.5 mg PO DAILY Simponi ARIA 12.5 mg/mL Solution 200 mg IV Q8W Rx Instructions: administer over 30 mins acetaminophen 500 mg Tablet 1,000 mg PO Q6H PRN (Reason: Pain) pantoprazole 40 mg Tablet,Delayed Release (Dr/Ec) 40 mg PO BEDTIME amlodipine 5 mg tablet 5 mg PO PRN PRN (Reason: Diarrhea) Label Comments: TAKE 1 TABLET BY MOUTH DAILY (DME) Resmed Airsense 10 CPAP Qty: 1 Dose Instruction: As directed Label Comments: Pressure: 8-12 cmH2O DME: [facility] Rx Instructions: As directed Follow up/Referrals: Lolita Quintero, PAJayceeC [Primary Care Provider] - Ton Arana MD [Physician] - As previously scheduled (Follow up w/ Dr Arana on 06/26/2022 @ 3:30 pm at [facility] office in [place].) Diet/Activity/Treatments Diet: Diet as Tolerated Cold/Heat Therapy: Ice to shoulder as needed for pain Skin/Wound/Dressing Care Report to your healthcare provider any signs of infection, such as:: chills, fever, night sweats, unusual drainage and unusual redness Dressing: May shower. Leave Aquacel dressing in place until follow up in office. Call the office if the dressing becomes saturated inside. Visit Report/Discharge Packet Instructions: DI for Prescription Opioid Use, DI for Shoulder Replacement Stand Alone Forms: Patient Portal/API, Stroke Signs & Symptoms, Surgery Discharge Discharge Data Primary Care Provider: Lolita Quintero
--- NOTE | 2022-06-15 13:14 | CM.DANOTE ---
DCP: Case received, EMR reviewed, this CM met with pt in her room, introduced self and role and was able to obtain information regarding pt's baseline activity level prior to planned surgery. Pt is 76yo female who arrived via pov under the care of orthopedic surgeons. She underwent preplanned Right reverse total shoulder replacement. She has a history of Right shoulder psoriatic arthritis. Pt was laying comfortably in her bed during our meeting. She confirms that she lives with her in [place]. She states that she drives at baseline and does not use dme. Pt confirms that she has a f/u with Dr. Arnaa in 2 weeks, and that she will be starting outpatient therapy in 6 wks at [facility]. This CM reviewed available agencies along with their current star rating's with pt. Pt stated that she would like to receive services from [facility]. Teo with [facility] notified and accepted pt. Plan: Discharge home today with [facility]. Ally Keating RN Case Manager. Discharge Planning/Care Management Discharge Assessment Start: 06/15/22 12:54 Freq: Status: Discharge Protocol: Document 06/15/22 12:54 JS (Rec: 06/15/22 13:10 [id number]) Discharge Planning Assessment Assigned Tanning Wheel Filler Ally Keating RN Case Manager Advance Directives? Yes Advance Directives on File Yes History Provided By Patient,Medical Record Has Patient been admitted in last 30 No days? Prior Living Arrangements House Household Members spouse Type of transporation used prior to Drives own vehicle admit Independent with ADL's Yes Is patient alert and oriented? Yes Patient/Family Preference Home with Home Health Comment Pt will have [facility] services upon discharge Barriers to Discharge No Discharge Plan Home with Home Health Transportation Arrangement Spouse will provide transportation Referrals Initiated Home Health Additional Comment [facility] requested If patient plan is home with home health Yes : Has signed face to face form been completed? If patient plan is SNF: Has PASSR been No completed? Medicare Choice List Provided Yes Medicare choice list reviewed on patient electronic tablet with Whiteboard Updated in Patient Room with Yes name and ext. # of Tanning Wheel Filler Review Status In Process Next Review Type Continued Stay Review Pre-Anesthesia Assessment Start: 06/05/22 09:40 Freq: Status: Discharge Protocol: Document 06/05/22 09:40 CAB (Rec: 06/05/22 10:34 CAB [id number]) Pre-Anesthesia Assessment Preferred Name Alexandra Patient Information Reviewed Via Phone Assessment Assessment Completed With Patient Diagnostic Results BMP/CMP,CBC,EKG Comment Labs/EKG @ [facility] Primary Care Provider Lolita Quintero Seen Specialist in Last 12 Months Yes Specialist Seen Oncologist,Orthopedist,Sleep specialist,Other Comment Rheumatology Primary Language Beninese Preferred Language Beninese Finance Intern Required No Height 152.4 cm Weight 105.233 kg Body Mass Index (BMI) 45.3 Hearing Ability Normal Visual Impairment No Limitations Dentition Type Teeth, Natural Present Barriers to Learning None Hx Anesthesia Reactions Yes: PONV Hx Family Anesthesia Reaction No Hx Malignant Hyperthermia No Hx Blood Transfusions No Hx Blood Transfusion Reaction No Anesthesia Review Requested No alcohol intake former Smoking Status Never smoker Substance Use Type does not use Pain Present Pain Reported Musculoskeletal Symptoms Back Pain,Joint Pain,Limited Range of Motion,Neck Pain History of Falling (Recent or History of No ) Patient is completely paralyzed or No completely immobile Mental Status Oriented to own ability Is patient on oxygen? No Does patient have DE LEON/SOB Yes: DE LEON r/t deconditioning Hx Sleep Apnea Yes CPAP/BIPAP use prescribed and used routinely Will Bring CPAP/BIPAP DOS Yes Currently Taking a Beta Jac No Can You Climb a Flight of Stairs Without Yes SOB Hx Chest Pain No Hx SOB Yes: DE LEON r/t deconditioning Hx Syncope or Dizziness No Anti-Coagulant Therapy No Has a Dude Ranch Manager No Cardiac Testing No Hx Pacemaker/ICD No Pacemaker Rep Required? No Cardiac Clearance Received Not Applicable Diet Type At Home Low Carb Dysphagia No Gastrointestinal Symptoms Cramping,Diarrhea,Reflux Comment Hx of IBS, Johnosn's GERD Bladder Pattern Urgency Urinary Catheter Present No Hx Urinary Self Catheterization No Diabetes No Patient No Lactating No Hx Drug Resistant Organism No Presence of External or Internal Medical Yes: Bilat knee prosthesis, Devices CPAP, bilat eye IOLs Have you had any close contact with No someone diagnosed with COVID-19? Received a COVID vaccine? Yes Received all doses? Yes Marital Status Lives With spouse Current Living Arrangements House Number of Floors (Floors) One Floor Support System Spouse Does the Patient Have Assistance After Yes Surgery Patient Discharge Plan Description Return Home Comment Pt advised overnight length of stay per surgeon Feels Safe in Current Environment Yes Been Physically Hurt or Threatened By a No Person in Current Environment Do you have thoughts of harming yourself None or others? Are you currently considering suicide? No Do you have a plan to hurt yourself or No Plan others? Do You Have Any Spiritual Beliefs That No May Affect Your HC Choices? Do You Have Any Cultural Practices That No May Affect Your HC Choices? 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 Yes Advance Directives on File Yes Power of Electrician Deck Yes Power of Electrician Deck Name Kath Garber () Power of Electrician Deck PAC Instructions Bring CPAP/BIPAP,Do not shave/ clip surgical site,Durable medical equipment,Medications to take/avoid,Nasal antibiotic ,No ETOH/petroleum product on skin DOS,NPO,Pre-surgical wash ,Sensory aids,Sturdy shoes/ comfortable clothes,Do not bring valuables and remove jewelry
== END 2022-06-15 11:52 | disposition home or self-care (01) | DRG 483 ==
LOC: AC 13:32 → ICU 16:16
PROVIDERS: Admitting Provider Orthopaedic Surgery; Family Provider Student in an Organized Health Care Education/Training Program; PCP Student in an Organized Health Care Education/Training Program; Referring Provider Orthopaedic Surgery; Visit Provider Orthopaedic Surgery
PROC: 0RRJ00Z Replacement of Right Shoulder Joint with Reverse Ball and Socket Synthetic Substitute, Open Approach (ICD-10-PCS; CPT 23472; principal; 2022-06-14 15:00)
DX: L40.50 Arthropathic psoriasis, unspecified (principal); D84.821 Immunodeficiency due to drugs; G47.33 Obstructive sleep apnea (adult) (pediatric); Z79.69 Long term (current) use of other immunomodulators and immunosuppressants; Z20.822 Contact with and (suspected) exposure to COVID-19
CPT/HCPCS: 36415; 64450; 73020; 85014; 85018; 87635; 87797; C1776; C9803; A9270; J0690; J1100; J2250; J2405; J2704; J3010; J3410

== ENCOUNTER → 2022-08-01 09:10 | Outpatient (CLI) | payer MEDICARE, SELFPAY ==
[2022-06-14 20:27] VITALS: BMI 46.6
--- NOTE | 2022-08-01 09:12 | DI.CT.S_ITS ---
PROCEDURE: CT CHEST ABD PEL W CON INDICATIONS: Diffuse large B-cell lymphoma, unspecified site TECHNIQUE: After the administration of oral and intravenous contrast, axial sections acquired from the supraclavicular neck to the pubic symphysis. Coronal and sagittal reformats were performed. For radiation dose reduction, the following was used: automated exposure control, adjustment of mA and/or kV according to patient size. COMPARISON: [facility], CT, CT CHEST ABD PEL W CON, 02/03/2022, 10:38. FINDINGS: Image quality: Excellent. CHEST: Lower Neck: No enlarged lymph nodes. Thyroid: Within normal limits. Axillae: No enlarged lymph nodes. Chest Wall: Unremarkable. Lungs and Airways: No consolidation or suspicious nodules. Sub 5 millimeter pulmonary nodules, stable from prior, likely benign. Pleura: No pneumothorax or pleural effusions. Heart: Heart size is normal. No pericardial effusion. Thoracic Vessels: The aorta and pulmonary arteries demonstrate normal size. Mediastinum and Isis: No enlarged lymph nodes. Esophagus: No wall thickening. Tiny hiatal hernia. ABDOMEN: Liver: Hepatomegaly. Gallbladder: Surgically absent. Biliary ducts: Unremarkable. Pancreas: Unremarkable. Spleen: Mild splenomegaly, measuring 11.4 x 5.3 by 10.4 centimeters, volume of 391 milliliter. Adrenal Glands: Unremarkable. Kidneys and Ureters: No complex renal cystic lesions which require follow-up. Stomach and Bowel: Colonic diverticulosis without evidence of diverticulitis. Peritoneum: No abnormal intraperitoneal fluid. No free air. Ventral Wall: No hernia. Abdominal Nodes: No retroperitoneal or mesenteric adenopathy by size criteria. Vessels: Aorta and inferior vena cava are normal in size. PELVIS: Pelvic Organs: Unremarkable. Bladder: Unremarkable. Pelvic Nodes: No enlarged lymph nodes. Miscellaneous: No inguinal hernias are seen. Bones: Unremarkable. Other: New rounded nodules within the right posterior flank, measuring 1.6 centimeters (2/75) and 4.9 centimeters (2/71). IMPRESSION: 1. Mild splenomegaly, similar to prior. Volume measures 391 milliliter. 2. New rounded nodules within the right posterior flank, measuring 1.6 centimeters (2/75) and 4.9 centimeters (2/71). Findings could represent injection granulomas, less likely lymphoma recurrence. Correlate with recent injections to this region. Dictated by: George Benton M.D. on 08/01/2022 at 13:11 Approved by: George Benton M.D. on 08/01/2022 at 13:20
[2022-08-01 09:29] LABS: Add Manual Diff / Slide Review NO; Basophils Absolute Auto 0 /uL (0-100); Basophils Percent Auto 0.7 % (0-2); Eosinophils Absolute Auto 100 /uL (0-450); Eosinophils Percent Auto 2.1 % (2-4); Hematocrit 41.8 % (36-46); Hemoglobin 14.2 g/dL (12.0-16.0); Lymphocytes Absolute Auto 2900 /uL (1100-4500); Lymphocytes Percent Auto 45.4 % (25-40); Mean Corpuscular HGB Conc 33.9 % (30-36); Mean Corpuscular Hemoglobin 29.4 PG (26-34); Mean Corpuscular Volume 86.7 fL (80-100); Monocytes Absolute Auto 500 /uL (0-900); Monocytes Percent Auto 8.6 % (3-14); Neutrophils Absolute Auto 2700 /uL (1500-7000); Neutrophils Percent Auto 43.2 % (50-75); Platelet Count 229 X10^3/uL (150-400); Red Blood Cell Count 4.83 X10^6/uL (4.0-5.2); Red Cell Distribution Width 14.6 % (11.6-14.8); White Blood Cell Count 6.3 X10^3/uL (4.5-11.0)
[2022-08-01 09:38] LABS: Alanine Aminotransferase 22 IU/L (<35); Albumin 4.3 g/dL (3.5-5.0); Albumin Globulin Ratio 1.2 (1.0-2.8); Alkaline Phosphatase 87 U/L (38-126); Aspartate Aminotransferase 23 IU/L (14-36); Bilirubin Total 0.7 mg/dL (0.2-1.3); Blood Urea Nitrogen 22 mg/dL (7-17); Calcium 10.7 mg/dL (8.4-10.2); Carbon Dioxide 26 mmol/L (22-32); Chloride 107 mmol/L (98-107); Estimated Glomerular Filt Rate > 60 mL/min (>60); Globulin 3.6 g/dL (1.7-4.1); Glucose 119 mg/dL (80-110); HEMOLYSIS < 15 (0-50); Lactate Dehydrogenase 184 U/L (120-246); Potassium 4.5 mmol/L (3.4-5.1); Sodium 141 mmol/L (137-145); Total Protein 7.9 g/dL (6.3-8.2)
[2022-08-03 17:38] LABS: Beta-2-Microglobulin 1.9 mg/L (0.6-2.4)
== END ==
PROVIDERS: Family Provider Student in an Organized Health Care Education/Training Program; PCP Student in an Organized Health Care Education/Training Program; Referring Provider Internal Medicine Hematology & Oncology; Visit Provider Internal Medicine Hematology & Oncology
DX: C83.30 Diffuse large B-cell lymphoma, unspecified site (principal); K57.90 Diverticulosis of intestine, part unspecified, without perforation or abscess without bleeding; R16.2 Hepatomegaly with splenomegaly, not elsewhere classified
CPT/HCPCS: 36415; 71260; 74177; 80053; 82232; 83615; 85025; Q9967

== ENCOUNTER 2022-09-13 07:58 | Day surgery (SDC) | payer MEDICARE, SELFPAY ==
[2022-06-14 20:27] VITALS: BMI 46.6
[2022-09-11 12:31] VITALS: BMI 45.3
--- NOTE | 2022-09-13 | DI.RAD.S_ITS ---
PROCEDURE: XR CHEST 1V INDICATIONS: PORT A CATH PLACEMENT TECHNIQUE: One view of the chest was acquired. COMPARISON: [facility], , XR CHEST 1V, 07/26/2020, 14:19. FINDINGS: Surgical changes and devices: Right chest Port-A-Cath, the tip of which projects to the superior vena cava. Total right shoulder arthroplasty. Lungs and pleura: Lungs are clear. No pleural effusions or pneumothorax. Mediastinum: Mediastinal contours appear normal. Heart size is normal. Bones and chest wall: No suspicious bony lesions. Overlying soft tissues appear unremarkable. IMPRESSION: Tip of right chest Port-A-Cath projects to superior vena cava. Dictated by: Danilo Ragsdale M.D. on 09/13/2022 at 11:47 Approved by: Danilo Ragsdale M.D. on 09/13/2022 at 11:51
[2022-09-13 08:37] VITALS: BP 162/88; PULSE 98; RESP 22; TEMP 35.9; BMI 45.3
--- NOTE | 2022-09-13 09:03 | PM.HP.1 ---
History of Present Illness History of Present Illness Date Patient Seen: 09/13/22 Time Patient Seen: 09:03 Chief complaint: SDC Narrative: 77-year-old woman known to me who has B-cell lymphoma here for Port-A-Cath placement. She previously had a right internal jugular Port-A-Cath which became dysfunctional and was removed last year. She needs to resume chemotherapy and she is here today for Port-A-Cath placement. [facility] Medical History Anesthesia complication Ankylosing spondylitis of lumbosacral region Anxiety Arthritis Bakers cyst Johnson's esophagus COVID-19 virus infection (09/2021) Depression Diverticulitis Inflammatory bowel diseases (IBD) Left knee pain Lower back pain Morbid obesity with BMI of 45.0-49.9, adult Obstructive sleep apnea of adult Osteoporosis Primary insomnia Psoriatic arthropathy Right shoulder pain Seasonal allergies Ulcer Surgical History H/O: hysterectomy (~1991) History of arthroplasty of left knee (09/27/16) History of removal of Port-a-Cath (10/2020) History of reverse total replacement of right shoulder joint (06/15/22) History of surgery (07/13/20) History of tonsillectomy and adenoidectomy History of total right knee replacement (02/28/19) Hx of bilateral cataract extraction Hx of cholecystectomy Hx of colonoscopy (02/07/21) Hx of hernia repair (01/2021) Hx of resection of small bowel (~2013) Hx of thumb surgery S/P colon resection (~1991) S/P total knee arthroplasty Family History Mother Hypertension Social History marital status: unknown household members: spouse Smoking Status: Never smoker alcohol intake: former substance use type: does not use Meds Home Medications and Allergies Home Medications Medication Instructions Recorded Confirmed Type potassium gluconate 595 mg (99 mg) 2 tab PO HS ##0 09/20/16 09/13/22 History tablet Resmed Airsense 10 CPAP #1 ea 07/30/18 09/07/22 History albuterol sulfate 90 mcg/actuation 2 puff inhalation Q4-6H PRN 09/06/18 09/13/22 Rx aerosol inhaler shortness of breath #8.5 grams amlodipine 5 mg tablet 2.5 mg PO BEDTIME 06/14/20 09/13/22 History diphenoxylate-atropine 2.5 1 tab PO DAILY PRN Diarrhea 01/20/21 09/13/22 History mg-0.025 mg tablet (Lomotil) hyoscyamine sulfate 0.125 mg/5 mL 5 ml PO Q4-6H PRN Cramps, IBS 01/20/21 09/13/22 History oral elixir (Hyosyne) meloxicam 15 mg tablet 7.5 mg PO DAILY 08/11/21 09/13/22 History acetaminophen 500 mg tablet 1,000 mg PO Q6H PRN Pain 06/05/22 09/13/22 History golimumab 12.5 mg/mL intravenous 200 mg IV Q8W 06/05/22 09/13/22 History solution (Simponi ARIA) pantoprazole 40 mg tablet,delayed 40 mg PO BEDTIME 06/05/22 09/13/22 History release Allergies Allergy/AdvReac Type Severity Reaction Status Date / Time ciprofloxacin Allergy Severe Rash, GI Verified 09/13/22 08:19 symptoms sulfamethoxazole Allergy Severe Rash, GI Verified 09/13/22 08:19 [From Bactrim] Symptoms trimethoprim [From Bactrim] Allergy Severe Gastrointestinal Verified 09/13/22 08:19 Upset cephalexin [From Keflex] Allergy Unknown Rash Verified 09/13/22 08:19 chlorhexidine Allergy Rash Verified 09/13/22 08:19 [From ChloraPrep Clear] isopropyl alcohol Allergy Rash Verified 09/13/22 08:19 [From ChloraPrep Clear] olive extract [OLIVE] AdvReac Severe DIARRHEA Verified 09/13/22 08:19 quinine [QUININE] AdvReac Severe DIARRHEA Verified 09/13/22 08:19 lisinopril AdvReac Mild Cough Verified 09/13/22 08:19 Sulfa (Sulfonamide AdvReac Mild GI upset Verified 09/13/22 08:19 Antibiotics) Exam Vital Signs (past 8 hours): - 09/13/22 08:37 Temperature 96.7 F L Pulse Rate 98 H Respiratory Rate 22 Blood Pressure 162/88 H Oxygen Delivery Method Room Air Oxygen Delivery Method Room Air Narrative Exam Narrative: General adult woman alert oriented no acute distress Chest nonlabored respiration Abdomen soft nontender nondistended Extremities warm well perfused Assessment & Plan Assessment and plan (1) Diffuse large B cell lymphoma: Qualifiers: Lymphoma site: unspecified region Qualified Code(s): C83.30 - Diffuse large B-cell lymphoma, unspecified site Status: Chronic Assessment & Plan narrative: 77-year-old woman with B-cell lymphoma here for Port-A-Cath placement. Overview of the operation was discussed with the patient at the bedside. Operative risks including hemorrhage, infection, mechanical device failure, embolism, were discussed. Questions have been answered. She provides her written and verbal consent to proceed.
[2022-09-13] MEDS: CLINDAMYCIN 900 MG/50 ML PIGGYBACK 50 MG IV (09:50)
--- NOTE | 2022-09-13 10:09 | SUR.OPER ---
Supine on padded OR bed, head on pillow, arms padded and tucked at sides, legs uncrossed, safety belt at thigh, tape over blanket over lower legs .
[2022-09-13] MEDS: HEPARIN 5,000 UNIT, SODIUM CHLORIDE 0.9% 50 ML IV (10:15)
[2022-09-13] MEDS: BUPIVACAINE 0.25% (PF) VIAL 30 ML INJ (10:17)
[2022-09-13 10:35] VITALS: BP 121/87; PULSE 94; RESP 16; TEMP 36.1; O2SAT 94
[2022-09-13 10:40] VITALS: BP 114/79; PULSE 86; RESP 13; TEMP 36.2; O2SAT 96
[2022-09-13] MEDS: ONDANSETRON 4 MG/2 ML INJ IV (10:47)
[2022-09-13] MEDS: OXYCODONE IR 5 MG TABLET PO (10:47)
[2022-09-13 10:49] VITALS: BP 125/72; PULSE 83; RESP 15; TEMP 36.2; O2SAT 95
--- NOTE | 2022-09-13 10:56 | P.OP_ITS ---
Operative Date/Time/Diagnoses Date of procedure: 09/13/22 Time of procedure: 10:56 Pre-op diagnosis: Lymphoma Post-op diagnosis: same Procedure & Clinicians Procedure: Port-A-Cath placement with ultrasound guidance Same procedure as scheduled: Yes Indications: 77-year-old woman with recurrent B-cell lymphoma here for Port-A-Cath placement Surgeon: Mitchell Ramesh Operative Notes Findings: Tip of the catheter within the SVC. Port flushes and draws well Specimen(s): none sent Estimated Blood Loss (mL): 10 Procedure in detail: Patient was brought to the operating room placed supine on table. Bilateral lower extremity compressive devices were applied. General anesthesia was induced and he was intubated with an LMA. She was then prepped and draped in usual sterile fashion. Time-out was performed ensure the correct patient procedure necessary equipment within the operating room. She received clindamycin prior to incision. Under ultrasound guidance the right internal jugular vein was accessed under direct visualization. The guidewire was then threaded through the needle. Its placement was then confirmed using fluoroscopy. The dilator was then placed over the guidewire. The catheter was then inserted through the sheath. Placement was again confirmed with fluoroscopy. A subcutaneous pocket was made in the right chest wall. The tunneler device was used to move the catheter from the neck to the chest pocket. The port was attached after it was primed with heparined saline. The port was tested to ensure that it flushed easily and had good blood return. The port was then secured to the underlying fascia using interupted 0 Prolene suture. Hemostasis was achieved. The wound was irrigated with sterile saline. The subc utaneous tissues were reapproximated with the 3 0 Vicryl and then skin closed with 4-0 Monocryl. The skin was sealed with Dermabond. Patient tolerated procedure well. The sponge and instrument count at the end operation was correct. Patient emerged from general anesthesia was extubated and taken to the postoperative care unit in stable condition Complications: none Post-operative Condition: stable Disposition: same day surgery
[2022-09-13 10:59] VITALS: BP 121/71; PULSE 81; RESP 15; TEMP 36.2; O2SAT 96
== END 2022-09-13 11:06 | disposition home or self-care (01) ==
PROVIDERS: Family Provider Student in an Organized Health Care Education/Training Program; PCP Student in an Organized Health Care Education/Training Program; Referring Provider Surgery; Visit Provider Surgery
PROC: (CPT 36561; principal; 2022-09-13 09:15)
DX: C85.10 Unspecified B-cell lymphoma, unspecified site (principal)
CPT/HCPCS: 36561; 71045; 76000; 82962; C1788; J1100; J1170; J1644; J2405; J2704; J3490

== ENCOUNTER → 2022-09-22 08:01 | Outpatient (CLI) | payer MEDICARE, SELFPAY ==
[2022-06-14 20:27] VITALS: BMI 46.6
--- NOTE | 2022-09-22 08:04 | DI.ECHO.S_ITS ---
[facility] +---------+ : : [address] : : : : [id number] : : : : Phone: [phone] Echocardiogram Report + + :Name: GREGORY MCMANUS Study Date: 09/22/2022 Height: 60 in : :[facility] ReadingLocation: Weight: 240 lb: : Gender: Female BSA: 2.0 m2 : :: 1945 Age: 77 yrs : :Reason For Study: PRE CHEMO EVALUATION : :Ordering Physician: NI, : :JANA Performed By: Francie Keen : :Referring: JANA DAN : + + Interpretation Summary The ejection fraction is estimated to be 60-65%. There are no obvious focal wall motion abnormalities noted but poor endocardial definition reduces the sensitivity for the detection of such. Procedure: Images were not obtained from all of the standard acoustic windows due to the limited scope of the study. Comparison is made with the echocardiogram of 01/29/2020. The study quality was technically adequate. The patient was in sinus rhythm with heart rates between 68-78 bpm during the exam. Left Ventricle: The left ventricle is normal in size and wall thickness. The ejection fraction is estimated to be 60-65%. There are no obvious focal wall motion abnormalities noted but poor endocardial definition reduces the sensitivity for the detection of such. Pericardium/ Pleura There is no pericardial effusion. There is no pleural effusion. MMode/2D Measurements & Calculations LVIDd: 4.7 cm LVIDs: 3.4 cm FS: 27.5 % IVSd: 0.98 cm LVPWd: 0.91 cm LV lowry. diameter/BSA (cm/m^2): 2.3 LV sys. diameter/BSA (cm/m^2): 1.7 Reading Physician:LIDIA
== END ==
PROVIDERS: Family Provider Student in an Organized Health Care Education/Training Program; PCP Student in an Organized Health Care Education/Training Program; Referring Provider Internal Medicine Hematology & Oncology; Visit Provider Internal Medicine Hematology & Oncology
DX: C83.30 Diffuse large B-cell lymphoma, unspecified site (principal); Z01.818 Encounter for other preprocedural examination
CPT/HCPCS: 93307

== ENCOUNTER → 2023-03-02 11:02 | Outpatient (CLI) | payer MEDICARE, SELFPAY ==
[2022-06-14 20:27] VITALS: BMI 46.6
== END ==
PROVIDERS: Family Provider Student in an Organized Health Care Education/Training Program; PCP Student in an Organized Health Care Education/Training Program; Visit Provider Nurse Practitioner Family
DX: R30.0 Dysuria (principal)
CPT/HCPCS: 87077; 87086; 87186

== ENCOUNTER 2023-03-06 08:16 | Emergency (ER) | payer MEDICARE, SELFPAY ==
[2022-06-14 20:27] VITALS: BMI 46.6
[2023-03-06] VITALS (11 sets, daily range): BP systolic 179–214; BP diastolic 84–118; PULSE 90–111; RESP 20–30; TEMP 36.4; O2SAT 91–97; BMI 47.0
--- NOTE | 2023-03-06 08:23 | ED_ITS ---
HPI - General Adult General Chief complaint: Abdominal Pain Stated complaint: severe pain in bowel area/V Time Seen by Provider: 03/06/23 08:17 Source: patient Mode of arrival: Ambulatory Limitations: no limitations History of Present Illness HPI narrative: Patient is a 77-year-old female. She is currently on antibiotics for urinary tract infection. She was seen at the walk-in clinic 4 days ago. Was prescribed Macrobid. Resultant culture shows Klebsiella that is susceptible to Macrobid. She states that her urinary symptoms she was having have improved but not completely resolved. She does have history of IBS. More times not she has diarrhea not constipation. She states she went to bed last night feeling fairly well but woke up this morning with fairly consistent right-sided abdominal pain. She states that she feels like she needs to have a bowel movement but just can not. She is also having vomiting. No fevers. Also has a history of B-cell lymphoma. Has completed treatment for this. Related Data Home Medications Medication Instructions Recorded Confirmed potassium gluconate 595 mg (99 mg) 2 tab PO HS ##0 09/20/16 03/02/23 tablet Resmed Airsense 10 CPAP #1 ea 07/30/18 03/02/23 diphenoxylate-atropine 2.5 1 tab PO DAILY PRN Diarrhea 01/20/21 03/02/23 mg-0.025 mg tablet (Lomotil) hyoscyamine sulfate 0.125 mg/5 mL 5 ml PO Q4-6H PRN Cramps, IBS 01/20/21 03/02/23 oral elixir (Hyosyne) acetaminophen 500 mg tablet 1,000 mg PO Q6H PRN Pain 06/05/22 03/02/23 pantoprazole 40 mg tablet,delayed 40 mg PO BEDTIME 06/05/22 03/02/23 release acyclovir 800 mg tablet mg PO 03/02/23 03/02/23 dapsone 25 mg tablet 50 mg PO BID 03/02/23 03/02/23 meloxicam 7.5 mg tablet 7.5 mg PO DAILY 03/02/23 03/02/23 Previous Rx's Medication Instructions Recorded albuterol sulfate 90 mcg/actuation 2 puff inhalation Q4-6H PRN 09/06/18 aerosol inhaler shortness of breath #8.5 grams lidocaine-prilocaine 2.5 %-2.5 % 1 applic topical PRN PRN Pain At 09/14/22 topical cream Injection Site #30 grams nitrofurantoin 100 mg PO Q12H 5 days #10 caps 03/02/23 monohydrate/macrocrystals 100 mg capsule (Macrobid) hydrocodone 5 mg-acetaminophen 325 1 tab PO Q4-6H PRN pain #7 tabs 03/06/23 mg tablet nitrofurantoin 100 mg PO BID 2 days #4 caps 03/06/23 monohydrate/macrocrystals 100 mg capsule (Macrobid) ondansetron 4 mg disintegrating 4 mg PO Q6H PRN nausea and 03/06/23 tablet vomiting #10 tabs Allergies Allergy/AdvReac Type Severity Reaction Status Date / Time ciprofloxacin Allergy Severe Rash, GI Verified 03/02/23 10:49 symptoms sulfamethoxazole Allergy Severe Rash, GI Verified 03/02/23 10:49 [From Bactrim] Symptoms trimethoprim [From Bactrim] Allergy Severe Gastrointestinal Verified 03/02/23 10:49 Upset cephalexin [From Keflex] Allergy Unknown Rash Verified 03/02/23 10:49 chlorhexidine Allergy Rash Verified 03/02/23 10:49 [From ChloraPrep Clear] isopropyl alcohol Allergy Rash Verified 03/02/23 10:49 [From ChloraPrep Clear] olive extract [OLIVE] AdvReac Severe DIARRHEA Verified 03/02/23 10:49 quinine [QUININE] AdvReac Severe DIARRHEA Verified 03/02/23 10:49 lisinopril AdvReac Mild Cough Verified 03/02/23 10:49 Sulfa (Sulfonamide AdvReac Mild GI upset Verified 03/02/23 10:49 Antibiotics) Review of Systems Constitutional Constitutional: Reports system reviewed and no additional complaints, except as documented Cardiovascular Cardiovascular: Reports system reviewed and no additional complaints, except as documented Respiratory Respiratory: Reports system reviewed and no additional complaints, except as documented Gastrointestinal Gastrointestinal: Reports system reviewed and no additional complaints, except as documented Genitourinary Genitourinary: Reports system reviewed and no additional complaints, except as documented Integumentary/Breasts Skin/Breast: Reports system reviewed and no additional complaints, except as documented Patient History Medical History Anesthesia complication COVID-19 virus infection (09/2021) Osteoporosis Lower back pain Ulcer Depression Anxiety Arthritis Diverticulitis Seasonal allergies Johnson's esophagus Right shoulder pain Inflammatory bowel diseases (IBD) Psoriatic arthropathy Ankylosing spondylitis of lumbosacral region Obstructive sleep apnea of adult Primary insomnia Morbid obesity with BMI of 45.0-49.9, adult Bakers cyst Left knee pain Surgical History H/O: hysterectomy (~1991) History of arthroplasty of left knee (09/27/16) History of removal of Port-a-Cath (10/2020) History of reverse total replacement of right shoulder joint (06/15/22) History of surgery (07/13/20) History of tonsillectomy and adenoidectomy History of total right knee replacement (02/28/19) Hx of bilateral cataract extraction Hx of cholecystectomy Hx of colonoscopy (02/07/21) Hx of hernia repair (01/2021) Hx of resection of small bowel (~2013) Hx of thumb surgery S/P colon resection (~1991) S/P total knee arthroplasty Family History Mother Hypertension Social History marital status: unknown household members: spouse Smoking Status: Never smoker alcohol intake: former substance use type: does not use Smoking Status: Never smoker Substance Use Type: does not use Exam Initial Vital Signs Initial Vital Signs: Vital Signs Pulse Rate 100 H 03/06/23 08:22 Blood Pressure 214/115 H 03/06/23 08:22 Pulse Oximetry 96 03/06/23 08:22 Const General: cooperative and No ill appearing HENPA Head: normal to inspection and normocephalic GI Inspection: normal to inspection, non-distended and no incisions Palpation: tender (Right-sided abdomen) Back/Spine/Pelvis Back: No CVA tenderness Neuro General: patient alert, patient awake, patient oriented x3 and moves all extremities Extrem General: normal to inspection Course Orders Ordered: ED Orders 03/06/23 08:22 CT abdomen pelvis w con Stat 03/06/23 08:40 Complete Blood Count AUTO DIFF Stat Comprehensive Metabolic Panel Stat Lipase Stat Discontinued Medications Sodium Chloride (Normal Saline 0.9%) 1,000 mls @ 500 mls/hr IV BOLUS ONE Stop: 03/06/23 10:18 Last Admin: 03/06/23 08:29 Dose: 500 mls/hr Documented By: YULISA Morphine Sulfate (Morphine 4 Mg/Ml Inj) 4 mg IV NOW ONE Stop: 03/06/23 09:31 Last Admin: 03/06/23 10:09 Dose: 4 mg Documented By: BRIA Ondansetron HCl (Ondansetron 4 Mg/2 Ml Inj) 4 mg IV NOW ONE Stop: 03/06/23 08:20 Last Admin: 03/06/23 08:28 Dose: 4 mg Documented By: AMJenna Ondansetron HCl (Ondansetron 4 Mg/2 Ml Inj) 4 mg IV NOW ONE Stop: 03/06/23 09:31 Last Admin: 03/06/23 10:09 Dose: 4 mg Documented By: BRIA Vital Signs Vital signs: Vital Signs - 8 hr 03/06/23 08:22 03/06/23 08:22 03/06/23 08:30 Temperature 97.6 F Pulse Rate 100 H 92 H Respiratory Rate 20 Blood Pressure 214/115 H 214/115 H Pulse Oximetry 96 97 Oxygen Delivery Method Room Air 03/06/23 08:30 03/06/23 08:54 03/06/23 08:54 Temperature Pulse Rate 95 H 90 Respiratory Rate 22 Blood Pressure 199/89 H Pulse Oximetry 97 95 Oxygen Delivery Method 03/06/23 09:00 03/06/23 09:12 03/06/23 09:12 Temperature Pulse Rate 92 H 91 H Respiratory Rate 21 Blood Pressure 179/101 H Pulse Oximetry 94 95 Oxygen Delivery Method 03/06/23 09:30 03/06/23 09:30 03/06/23 09:52 Temperature Pulse Rate 91 H 99 H Respiratory Rate 30 H Blood Pressure 184/91 H Pulse Oximetry 96 91 Oxygen Delivery Method 03/06/23 09:52 03/06/23 10:00 03/06/23 10:00 Temperature Pulse Rate 92 H Respiratory Rate 28 H Blood Pressure 190/86 H 180/84 H Pulse Oximetry 92 Oxygen Delivery Method 03/06/23 10:35 03/06/23 10:37 03/06/23 10:37 Temperature Pulse Rate 111 H 100 H Respiratory Rate 27 H 25 H Blood Pressure 193/118 H Pulse Oximetry 93 97 Oxygen Delivery Method Medical Decision Making Lab Data Lab results reviewed: Yes I reviewed the patient's lab results. 03/06/23 08:40 03/06/23 08:40 Labs: Lab Results 03/06/23 Range/Units 08:40 WBC 6.7 (4.5-11.0) X10^3/uL RBC 4.16 (4.0-5.2) X10^6/uL Hgb 11.4 L (12.0-16.0) g/dL Hct 34.7 L (36-46) % MCV 83.4 (80-100) fL MCH 27.4 (26-34) PG MCHC 32.9 (30-36) % RDW 17.2 H (11.6-14.8) % Plt Count 168 (150-400) X10^3/uL Neut % (Auto) 87.5 H (50-75) % Lymph % (Auto) 5.8 L (25-40) % Villalba % (Auto) 5.3 (3-14) % Eos % (Auto) 0.4 L (2-4) % Baso % (Auto) 1.0 (0-2) % Neut # (Auto) 5900 (2979-8739) /uL Lymph # (Auto) 400 L (3368-9547) /uL Villalba # (Auto) 400 (0-900) /uL Eos # (Auto) 0 (0-450) /uL Baso # (Auto) 100 (0-100) /uL Sodium 138 (137-145) mmol/L Potassium 4.2 (3.4-5.1) mmol/L Chloride 107 (98-107) mmol/L Carbon Dioxide 24 (22-32) mmol/L BUN 25 H (7-17) mg/dL Creatinine 1.13 H (0.52-1.04) mg/dL Estimated GFR 50 L (>60) mL/min BUN/Creatinine Ratio 22.1 H (6-22) Glucose 138 H (80-110) mg/dL Calcium 10.9 H (8.4-10.2) mg/dL Total Bilirubin 0.8 (0.2-1.3) mg/dL AST 32 (14-36) IU/L ALT 22 (<35) IU/L Alkaline Phosphatase 99 (38-126) U/L Total Protein 7.1 (6.3-8.2) g/dL Albumin 4.5 (3.5-5.0) g/dL Globulin 2.6 (1.7-4.1) g/dL Albumin/Globulin Ratio 1.7 (1.0-2.8) Lipase 49 (23-300) U/L Imaging Data CT scan - abdomen/pelvis: Radiologist's Impression: PROCEDURE: CT ABDOMEN PELVIS W CON INDICATIONS: right sided abd pain with vomiting TECHNIQUE: After the administration of oral and IV contrast, axial sections were acquired from the lung bases to the pubic symphysis. Coronal and sagittal reformats were performed. For radiation dose reduction, the following was used: automated exposure control, adjustment of mA and/or kV according to patient size. COMPARISON: [facility], CT, CT CHEST ABD PEL W CON, 08/01/2022, 11:09. [facility], CT, CT ABDOMEN PELVIS W CON, 01/25/2021, 13:30. FINDINGS: Image quality: Excellent. Lung bases: Unremarkable. Heart: No significant findings. ABDOMEN: Liver: Diffuse steatosis is present. Gallbladder: Removed. Biliary ducts: Common bile duct measures 1.3 cm, unchanged. This is suspected to be related to post cholecystectomy sequela. Recommend correlation with laboratory values. Pancreas: Unremarkable. Spleen: Mildly prominent. Adrenal Glands: Unremarkable. Kidneys and Ureters: [id number] right hydronephrosis and hydroureter. There is a punctate calcification in the distal ureter at the ureterovesicular junction. Unchanged simple left renal cyst. Stomach and Bowel: Stomach, small bowel loops, and colon are unremarkable. Peritoneum: No abnormal intraperitoneal fluid. No free air. Ventral Wall: No hernia. Abdominal Nodes: No retroperitoneal or mesenteric adenopathy by size criteria. Vessels: Aorta and inferior vena cava are normal in size. PELVIS: Pelvic Organs: Unremarkable. Bladder: Unremarkable. Pelvic Nodes: No enlarged lymph nodes. Miscellaneous: No inguinal hernias are seen. Previously identified nodules within the subcutaneous fat of the right flank appear to have markedly decreased in size. Previous focus measuring 1.3 x 1.3 cm seen today on series 2, image 64 measures 0.7 x 1.2 cm. The other foci appear to not be fully included within the field of view compared to prior exam and cannot be evaluated. Bones: Unremarkable. IMPRESSION: [id number] right hydronephrosis and hydroureter secondary to punctate calcification at the ureterovesicular junction. Decreased appearance of previous soft tissue nodules as above. MDM Narrative Medical decision making narrative: Patient states that her symptoms are much better controlled after medication. She did have a increase in her creatinine and decrease in her GFR from baseline. She is afebrile. No leukocytosis. We know that she has a urinary tract infection. Review of her medical record shows a culture that is sensitive to Macrobid. CT scan does show a punctate right-sided distal ureteral stone which most likely is causing her discomfort today. There is hydro but no signs of pyelo. Patient is well-appearing. Is tolerating oral intake. Plan will be is to discharge the patient home. I did discuss the case with Dr. Vega on-call with Urology. The plan will be to keep her on Macrobid as there is no signs of pyelonephritis. Because of her allergies we do need to switch to something else Augmentin would be the choice based on her allergies and also the culture. Will send home with pain medication and nausea medicine. Will extend her Macrobid for a few more days she is still having some symptoms related to the UTI. She was given return precautions. She expressed understanding and agreement. Discharge Plan Departure Patient Disposition: Home Clinical Impression: Right ureteral stone, Urinary tract infection Instructions: DI for Kidney Stones Activity Restrictions/Additional Instructions: Continue to take all of your medications as directed. We will extend your antibiotics for another 2 days. Nausea medicine and pain medicine was also sent to the pharmacy as well. Continue to take these as needed and as directed. Return to the emergency department for vomiting or pain that is not controlled were fevers or worsening symptoms. Prescriptions: New nitrofurantoin monohyd/m-cryst [Macrobid] 100 mg capsule 100 mg PO BID 2 Days Qty: 4 0RF Rx Instructions: must administer with a meal/food ondansetron 4 mg tablet,disintegrating 4 mg PO Q6H PRN (Reason: nausea and vomiting) Qty: 10 0RF hydrocodone-acetaminophen 5-325 mg tablet 1 tab PO Q4-6H PRN (Reason: pain) Qty: 7 0RF No Action albuterol sulfate 90 mcg/actuation HFA aerosol inhaler 2 puff INHALATION Q4-6H PRN (Reason: shortness of breath) Qty: 8.5 1RF Patient Comments: on exertion. cold weather meloxicam 7.5 mg tablet 7.5 mg PO DAILY dapsone 25 mg tablet 50 mg PO BID acyclovir 800 mg tablet PO nitrofurantoin monohyd/m-cryst [Macrobid] 100 mg capsule 100 mg PO Q12H 5 Days Qty: 10 0RF Rx Instructions: must administer with a meal/food potassium gluconate 99 MG tablet 2 tab PO HS Qty: 0 diphenoxylate-atropine [Lomotil] 2.5-0.025 mg Tablet 1 tab PO DAILY PRN (Reason: Diarrhea) hyoscyamine sulfate [Hyosyne] 0.125 mg/5 mL Elixir 5 ml PO Q4-6H PRN (Reason: Cramps, IBS) lidocaine-prilocaine 2.5-2.5 % Cream 1 applic topical PRN PRN (Reason: Pain At Injection Site) Qty: 30 0RF Rx Instructions: Apply to the skin over the port at least 1 hour before the planned use of the port. Cover the cream with a piece of plastic wrap and leave in place until the port is accessed. acetaminophen 500 mg Tablet 1,000 mg PO Q6H PRN (Reason: Pain) pantoprazole 40 mg Tablet,Delayed Release (Dr/Ec) 40 mg PO BEDTIME (DME) Resmed Airsense 10 CPAP Qty: 1 Dose Instruction: As directed Patient Comments: Pressure: 8-12 cmH2O DME: [facility] Rx Instructions: As directed Referrals: Lolita Quintero PA-C [Primary Care Provider] - Stand Alone Forms: Patient Portal/API
[2023-03-06] MEDS: ONDANSETRON 4 MG/2 ML INJ IV ×2 (08:28→10:09)
[2023-03-06] MEDS: SODIUM CHLORIDE 0.9% 1,000 ML 500 ML IV (08:29)
--- NOTE | 2023-03-06 08:39 | PC.NURSE ---
Pt reports that she woke up this morning with sharp shooting pain on her right side and n/v. She has been taking macrobid for uti since 03/02 and reports that not all of her sx have resolved. pt has hx of multiple bowel surgeries, including a sigmoid resection. pain and tenderness on right side of abd upon palpation. pt has hx of b-cell lymphoma and is receiving tx at [facility]. a&ox4. deposition reporter intact. 01/[address] ramsey at bedside at the time of triage.
[2023-03-06 08:51] LABS: Add Manual Diff / Slide Review NO; Basophils Absolute Auto 100 /uL (0-100); Eosinophils Absolute Auto 0 /uL (0-450); Eosinophils Percent Auto 0.4 % (2-4); Hematocrit 34.7 % (36-46); Hemoglobin 11.4 g/dL (12.0-16.0); Lymphocytes Absolute Auto 400 /uL (1100-4500); Lymphocytes Percent Auto 5.8 % (25-40); Mean Corpuscular HGB Conc 32.9 % (30-36); Mean Corpuscular Hemoglobin 27.4 PG (26-34); Mean Corpuscular Volume 83.4 fL (80-100); Monocytes Absolute Auto 400 /uL (0-900); Monocytes Percent Auto 5.3 % (3-14); Neutrophils Absolute Auto 5900 /uL (1500-7000); Neutrophils Percent Auto 87.5 % (50-75); Platelet Count 168 X10^3/uL (150-400); Red Blood Cell Count 4.16 X10^6/uL (4.0-5.2); Red Cell Distribution Width 17.2 % (11.6-14.8); White Blood Cell Count 6.7 X10^3/uL (4.5-11.0)
[2023-03-06 09:23] LABS: Alanine Aminotransferase 22 IU/L (<35); Albumin 4.5 g/dL (3.5-5.0); Albumin Globulin Ratio 1.7 (1.0-2.8); Alkaline Phosphatase 99 U/L (38-126); Aspartate Aminotransferase 32 IU/L (14-36); BUN Creatinine Ratio 22.1 (6-22); Bilirubin Total 0.8 mg/dL (0.2-1.3); Blood Urea Nitrogen 25 mg/dL (7-17); Calcium 10.9 mg/dL (8.4-10.2); Carbon Dioxide 24 mmol/L (22-32); Chloride 107 mmol/L (98-107); Estimated Glomerular Filt Rate 50 mL/min (>60); Globulin 2.6 g/dL (1.7-4.1); Glucose 138 mg/dL (80-110); HEMOLYSIS 39 (0-50); Lipase 49 U/L (23-300); Potassium 4.2 mmol/L (3.4-5.1); Sodium 138 mmol/L (137-145); Total Protein 7.1 g/dL (6.3-8.2)
[2023-03-06] MEDS: MORPHINE 4 MG/ML INJ IV (10:09)
== END 2023-03-06 11:22 | disposition home or self-care (01) ==
PROVIDERS: Emergency Provider Emergency Medicine; Family Provider Student in an Organized Health Care Education/Training Program; PCP Student in an Organized Health Care Education/Training Program
DX: N20.1 Calculus of ureter (principal); N39.0 Urinary tract infection, site not specified
CPT/HCPCS: 36415; 74177; 80053; 83690; 85025; 96361; 96374; 96375; 96376; 99284; J2270; J2405; Q9967

== ENCOUNTER → 2023-03-12 15:42 | Outpatient (CLI) | payer MEDICARE, SELFPAY ==
[2022-06-14 20:27] VITALS: BMI 46.6
== END ==
PROVIDERS: Family Provider Student in an Organized Health Care Education/Training Program; PCP Student in an Organized Health Care Education/Training Program; Visit Provider Physician Assistant
DX: R30.0 Dysuria (principal)
CPT/HCPCS: 87077; 87086; 87186

== ENCOUNTER → 2023-03-24 18:05 | Outpatient (CLI) | payer MEDICARE, SELFPAY ==
[2022-06-14 20:27] VITALS: BMI 46.6
== END ==
PROVIDERS: Family Provider Student in an Organized Health Care Education/Training Program; PCP Student in an Organized Health Care Education/Training Program; Visit Provider Nurse Practitioner Family
DX: R30.0 Dysuria (principal)
CPT/HCPCS: 87077; 87086; 87186

== ENCOUNTER → 2023-04-18 14:32 | Outpatient (CLI) | payer MEDICARE, SELFPAY ==
[2022-06-14 20:27] VITALS: BMI 46.6
== END ==
PROVIDERS: Family Provider Student in an Organized Health Care Education/Training Program; PCP Student in an Organized Health Care Education/Training Program; Visit Provider Nurse Practitioner Family
DX: R30.0 Dysuria (principal)
CPT/HCPCS: 87077; 87086; 87186

== ENCOUNTER 2023-04-30 10:55 | Emergency (ER) | payer MEDICARE, SELFPAY ==
[2022-06-14 20:27] VITALS: BMI 46.6
[2023-04-30 11:08] VITALS: BP 175/78; PULSE 95; RESP 22; TEMP 36.6; O2SAT 96; BMI 45.7
[2023-04-30 11:43] LABS: Bacteria Urine Few (2-10); Culture Indicated Urine Specimen Cultured; RBC Urine None Seen (0-5/HPF); Squamous Epithelial Cell Urine 1-5 /HPF (0-5/HPF); WBC Urine 10-30/HPF (0-5/HPF)
--- NOTE | 2023-04-30 12:05 | ED_ITS ---
HPI - Female Genitourinary <[place] GLADYS Bhandari - Last Filed: 04/30/23 12:10> General Chief complaint: Urogenital-Female Stated complaint: uti Time Seen by Provider: 04/30/23 11:40 Source: patient Mode of arrival: Ambulatory History of Present Illness HPI Narrative: 77-year-old female, with history of Johnson's esophagus and frequent UTIs, presents to the emergency department with complaints of dysuria and urinary frequency x1 day. Patient has been treated for frequent UTIs in the ER and walk-in clinic, but symptoms eventually return. Referral for Urology has been placed but patient has not received a phone call at this time. Related Data Home Medications Medication Instructions Recorded Confirmed potassium gluconate 595 mg (99 mg) 2 tab PO HS ##0 09/20/16 04/18/23 tablet Resmed Airsense 10 CPAP #1 ea 07/30/18 04/18/23 diphenoxylate-atropine 2.5 1 tab PO DAILY PRN Diarrhea 01/20/21 04/18/23 mg-0.025 mg tablet (Lomotil) hyoscyamine sulfate 0.125 mg/5 mL 5 ml PO Q4-6H PRN Cramps, IBS 01/20/21 04/18/23 oral elixir (Hyosyne) acetaminophen 500 mg tablet 1,000 mg PO Q6H PRN Pain 06/05/22 04/18/23 pantoprazole 40 mg tablet,delayed 40 mg PO BEDTIME 06/05/22 04/18/23 release acyclovir 800 mg tablet mg PO 03/02/23 04/18/23 dapsone 25 mg tablet 50 mg PO BID 03/02/23 04/18/23 meloxicam 7.5 mg tablet 7.5 mg PO DAILY 03/02/23 04/18/23 Previous Rx's Medication Instructions Recorded albuterol sulfate 90 mcg/actuation 2 puff inhalation Q4-6H PRN 09/06/18 aerosol inhaler shortness of breath #8.5 grams lidocaine-prilocaine 2.5 %-2.5 % 1 applic topical PRN PRN Pain At 09/14/22 topical cream Injection Site #30 grams hydrocodone 5 mg-acetaminophen 325 1 tab PO Q4-6H PRN pain #7 tabs 03/06/23 mg tablet ondansetron 4 mg disintegrating 4 mg PO Q6H PRN nausea and 03/06/23 tablet vomiting #10 tabs amoxicillin 875 mg-potassium 1 tab PO BID #14 tabs 03/12/23 clavulanate 125 mg tablet fosfomycin tromethamine 3 gram 1 packet PO ONCE #1 ea 04/18/23 oral packet nitrofurantoin 100 mg PO BID uti 7 days #14 caps 04/30/23 monohydrate/macrocrystals 100 mg capsule (Macrobid) phenazopyridine 200 mg tablet 200 mg PO TID PRN pain 6 doses #6 04/30/23 (Pyridium) tabs Allergies Allergy/AdvReac Type Severity Reaction Status Date / Time ciprofloxacin Allergy Severe Rash, GI Verified 04/18/23 14:38 symptoms sulfamethoxazole Allergy Severe Rash, GI Verified 04/18/23 14:38 [From Bactrim] Symptoms trimethoprim [From Bactrim] Allergy Severe Gastrointestinal Verified 04/18/23 14:38 Upset cephalexin [From Keflex] Allergy Unknown Rash Verified 04/18/23 14:38 chlorhexidine Allergy Rash Verified 04/18/23 14:38 [From ChloraPrep Clear] isopropyl alcohol Allergy Rash Verified 04/18/23 14:38 [From ChloraPrep Clear] olive extract [OLIVE] AdvReac Severe DIARRHEA Verified 04/18/23 14:38 quinine [QUININE] AdvReac Severe DIARRHEA Verified 04/18/23 14:38 lisinopril AdvReac Mild Cough Verified 04/18/23 14:38 Sulfa (Sulfonamide AdvReac Mild GI upset Verified 04/18/23 14:38 Antibiotics) Review of Systems <GLADYS Fernandez - Last Filed: 04/30/23 12:10> Review of Systems Narrative: Narrative: See HPI. GENERAL: Denies chills, fatigue, fever, sweats. RESPIRATORY: Denies dyspnea, cough, wheezing, sputum. CARDIOVASCULAR: Denies chest pain, palpitations, edema. GASTROINTESTINAL: Denies nausea, vomiting, abdominal pain, diarrhea, constipation. : Denies incontinence, hematuria, urinary retention, flank pain. Endorses dysuria and urinary frequency. MSK: Denies weakness, joint pain, or bony pain. SKIN: Denies rash, skin lesions, or pruritis. NEUROLOGIC: Denies weakness, dizziness, headache, numbness, confusion. 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/15/22) History of removal of Port-a-Cath (10/2020) Hx of hernia repair (01/2021) History of surgery (07/13/20) History of total right knee replacement (02/28/19) Hx of colonoscopy (02/07/21) History of arthroplasty of left knee (09/27/16) Hx of resection of small bowel (~2013) S/P colon resection (~1991) H/O: hysterectomy (~1991) Hx of cholecystectomy Hx of thumb surgery History of tonsillectomy and adenoidectomy Hx of bilateral cataract extraction S/P total knee arthroplasty Family History Mother Hypertension alcohol intake frequency: 0-2 drinks per day Substance Use Type: does not use Exam <GLADYS Fernandez - Last Filed: 04/30/23 12:10> Narrative Exam Narrative: Exam Narrative: GENERAL: This is a well-nourished, well-developed patient, in no acute distress. HEAD: Atraumatic. Normocephalic. EYES: Pupils equal round and reactive. No scleral icterus, injection or drainage. ENT: Nose without bleeding, purulent drainage. Airway patent. CARDIOVASCULAR: Regular rate and rhythm without murmurs, peripheral pulses intact, cap refill <2 sec. RESPIRATORY: Breath sounds equal and clear bilaterally. No wheezes, rales, or rhonchi. No cough. No increased respiratory effort. No accessory muscle use. GASTROINTESTINAL: Abdomen soft, mild left-sided tenderness, nondistended without guarding or rebound. No suprapubic pain. MSK: Moves all extremities. Normal range of motion, no clubbing or edema. Neurovascularly intact. NEURO: A&O x 3. SKIN: Warm, dry, no rashes or lesions noted. Initial Vital Signs Initial Vital Signs: Vital Signs Temperature 97.8 F 04/30/23 11:08 Pulse Rate 95 H 04/30/23 11:08 Respiratory Rate 22 04/30/23 11:08 Blood Pressure 175/78 H 04/30/23 11:08 Pulse Oximetry 96 04/30/23 11:08 Oxygen Delivery Method Room Air 04/30/23 11:08 Reviewed <Fuad Turcios MD - Last Filed: 05/01/23 18:19> Initial Vital Signs Initial Vital Signs: Vital Signs Temperature 97.8 F 04/30/23 11:08 Pulse Rate 95 H 04/30/23 11:08 Respiratory Rate 22 04/30/23 11:08 Blood Pressure 175/78 H 04/30/23 11:08 Pulse Oximetry 96 04/30/23 11:08 Oxygen Delivery Method Room Air 04/30/23 11:08 Course <GLADYS Fernandez - Last Filed: 04/30/23 12:10> Orders Ordered: ED Orders 04/30/23 11:20 Urine Culture Stat Urine Microscopic Stat Vital Signs Vital signs: Vital Signs - 8 hr 04/30/23 11:08 Temperature 97.8 F Pulse Rate 95 H Respiratory Rate 22 Blood Pressure 175/78 H Pulse Oximetry 96 Oxygen Delivery Method Room Air <Fuad Turcios MD - Last Filed: 05/01/23 18:19> Orders Ordered: ED Orders 04/30/23 11:20 Urine Culture Stat Urine Microscopic Stat Vital Signs Vital signs: Vital Signs - 8 hr 04/30/23 11:08 Temperature 97.8 F Pulse Rate 95 H Respiratory Rate 22 Blood Pressure 175/78 H Pulse Oximetry 96 Oxygen Delivery Method Room Air MDM - Female Genitourinary <GLADYS Fernandez - Last Filed: 04/30/23 12:10> Differential Diagnosis Differential diagnosis: Likely urinary tract infection Lab Data Labs: Lab Results 04/30/23 Range/Units 11:20 Urine RBC None seen (0-5/HPF) Urine WBC 10-30/hpf H (0-5/HPF) Ur Squamous Epith Cells 1-5 /hpf (0-5/HPF) Urine Bacteria Few (2-10) H (None) Ur Culture Indicated? Specimen cultured Urine Dip Bedside Urine Glucose Negative Bedside Urine Bilirubin - Negative Bedside Urine Ketone - Negative Urine Specific [place] 1.015 Bedside Urine Occult Blood + Bedside Urine pH 6.5 Bedside Urine Protein +/- 15 Bedside Urine Urobilinogen - Negative Bedside Urine Nitrite - Negative Bedside Urine Leukocytes +++ 500 Esterase MDM Narrative Medical decision making narrative: 77-year-old female with frequent UTIs, presents emergency department with dysuria and urinary frequency. Patient has several antibiotic allergies. Per review of previous chart notes and urine culture sensitivities from walk-in clinic and emergency department, determined that Macrobid would be the most appropriate antibiotic for treatment of this UTI. Informed patient that I would put her on a 7 day course of Macrobid and place a urgent referral for Urology, in hopes that they will be able to see her before she potentially develops another UTI. Discussed plan of care and return precautions with patient, who verbalized understanding and was agreeable with course of action. <Fuad Turcios MD - Last Filed: 05/01/23 18:19> Lab Data Labs: Lab Results 04/30/23 Range/Units 11:20 Urine RBC None seen (0-5/HPF) Urine WBC 10-30/hpf H (0-5/HPF) Ur Squamous Epith Cells 1-5 /hpf (0-5/HPF) Urine Bacteria Few (2-10) H (None) Ur Culture Indicated? Specimen cultured Urine Dip Bedside Urine Glucose Negative Bedside Urine Bilirubin - Negative Bedside Urine Ketone - Negative Urine Specific [place] 1.015 Bedside Urine Occult Blood + Bedside Urine pH 6.5 Bedside Urine Protein +/- 15 Bedside Urine Urobilinogen - Negative Bedside Urine Nitrite - Negative Bedside Urine Leukocytes +++ 500 Esterase MDM Narrative Medical decision making narrative: 77-year-old female with frequent UTIs, presents emergency department with dysuria and urinary frequency. Patient has several antibiotic allergies. Per review of previous chart notes and urine culture sensitivities from walk-in clinic and emergency department, determined that Macrobid would be the most appropriate antibiotic for treatment of this UTI. Informed patient that I would put her on a 7 day course of Macrobid and place a urgent referral for Urology, in hopes that they will be able to see her before she potentially develops another UTI. Discussed plan of care and return precautions with patient, who verbalized understanding and was agreeable with course of action. I was immediately available in the department for consultation. Documentation has been reviewed. I agree with assessment and plan. Discharge Plan Departure Patient Disposition: Home Clinical Impression: Urinary tract infection Qualifiers: Urinary tract infection type: acute cystitis Hematuria presence: with hematuria Qualified Code(s): N30.01 - Acute cystitis with hematuria Instructions: DI for Urinary Tract Infection (UTI) Activity Restrictions/Additional Instructions: *You have been diagnosed with a urinary tract infection. Review of your previous urine cultures revealed that Macrobid is susceptible to the bacteria you have been growing. We will treat you with Macrobid for 7 days and put in urgent referral for Urology. Please feel free to return to the emergency department or walk-in clinic as needed. *What to do: *Please continue to take your regular medications as directed. [x ] New medication prescriptions sent to your pharmacy: [[facility]] [ ] New medication written as a paper prescription [ ] No new medications given *Please follow up with your primary care provider in 2-3 days, call for an appointment. Let them know you were seen in the Emergency Department and that we ask that you be seen in follow up. We will electronically transmit a record of today's note if your PCP is in our system *If you do not have a primary care provider please contact the [facility] Resource line at [phone]. They will ask some questions about your medical history and help get you set up with a doctor in the community. ? Return to ER if you should have any new, worsening or concerning symptoms, such as worsening pain, severe headache, confusion, chest pain, difficulty breathing, fever greater than 101 F, shaking chills, persistent vomiting to the point that you cannot drink fluids, or other new or worsening symptoms. Prescriptions: New nitrofurantoin monohyd/m-cryst [Macrobid] 100 mg capsule 100 mg PO BID 7 Days Qty: 14 0RF Rx Instructions: must administer with a meal/food phenazopyridine [Pyridium] 200 mg tablet 200 mg PO TID PRN (Reason: pain) Qty: 6 0RF No Action albuterol sulfate 90 mcg/actuation HFA aerosol inhaler 2 puff INHALATION Q4-6H PRN (Reason: shortness of breath) Qty: 8.5 1RF Patient Comments: on exertion. cold weather meloxicam 7.5 mg tablet 7.5 mg PO DAILY dapsone 25 mg tablet 50 mg PO BID acyclovir 800 mg tablet PO fosfomycin tromethamine 3 gram packet 1 packet PO ONCE Qty: 1 0RF amoxicillin-pot clavulanate 875-125 mg tablet 1 tab PO BID Qty: 14 0RF potassium gluconate 99 MG tablet 2 tab PO HS Qty: 0 ondansetron 4 mg tablet,disintegrating 4 mg PO Q6H PRN (Reason: nausea and vomiting) Qty: 10 0RF hydrocodone-acetaminophen 5-325 mg tablet 1 tab PO Q4-6H PRN (Reason: pain) Qty: 7 0RF diphenoxylate-atropine [Lomotil] 2.5-0.025 mg Tablet 1 tab PO DAILY PRN (Reason: Diarrhea) hyoscyamine sulfate [Hyosyne] 0.125 mg/5 mL Elixir 5 ml PO Q4-6H PRN (Reason: Cramps, IBS) lidocaine-prilocaine 2.5-2.5 % Cream 1 applic topical PRN PRN (Reason: Pain At Injection Site) Qty: 30 0RF Rx Instructions: Apply to the skin over the port at least 1 hour before the planned use of the port. Cover the cream with a piece of plastic wrap and leave in place until the port is accessed. acetaminophen 500 mg Tablet 1,000 mg PO Q6H PRN (Reason: Pain) pantoprazole 40 mg Tablet,Delayed Release (Dr/Ec) 40 mg PO BEDTIME (DME) Resmed Airsense 10 CPAP Qty: 1 Dose Instruction: As directed Patient Comments: Pressure: 8-12 cmH2O DME: [facility] Rx Instructions: As directed Referrals: Lolita Quintero PA-C [Primary Care Provider] - Blas Chao MD [Physician] - (Please evaluate and treat for recurrent UTIs.) Stand Alone Forms: Patient Portal/API
[2023-04-30 12:09] VITALS: BP 154/80; PULSE 83; RESP 18; TEMP 36.6; O2SAT 98
--- NOTE | 2023-04-30 12:15 | PC.NURSE ---
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 She stated that she has doesn't have a immune system.
== END 2023-04-30 12:18 | disposition home or self-care (01) ==
PROVIDERS: Emergency Medicine; Emergency Provider Registered Nurse; Family Provider Student in an Organized Health Care Education/Training Program; PCP Student in an Organized Health Care Education/Training Program
DX: N30.01 Acute cystitis with hematuria (principal)
CPT/HCPCS: 81003; 81015; 87077; 87086; 87186; 99282; 99284

== ENCOUNTER → 2023-06-13 14:41 | Outpatient (CLI) | payer MEDICARE, SELFPAY ==
[2023-05-30 14:22] VITALS: BMI 46.6
== END ==
PROVIDERS: Family Provider Student in an Organized Health Care Education/Training Program; PCP Student in an Organized Health Care Education/Training Program; Visit Provider Urology
DX: N39.0 Urinary tract infection, site not specified (principal); N13.30 Unspecified hydronephrosis; N20.0 Calculus of kidney; R30.0 Dysuria; R39.15 Urgency of urination; R35.0 Frequency of micturition; R39.9 Unspecified symptoms and signs involving the genitourinary system; R53.0 Neoplastic (malignant) related fatigue
CPT/HCPCS: 51798; 81002; 87077; 87086; 87186; 99214

== ENCOUNTER → 2023-06-14 11:50 | Outpatient (CLI) | payer MEDICARE, SELFPAY ==
[2023-05-30 14:22] VITALS: BMI 46.6
--- NOTE | 2023-06-14 11:57 | DI.CT.S_ITS ---
PROCEDURE: CT ABDOMEN PELVIS WO/W CON INDICATIONS: Chronic urinary tract infection (Klebsiella) TECHNIQUE: Optional 5 mm thick noncontrast images acquired from the diaphragm to the symphysis pubis. After the administration of intravenous contrast, 5 mm thick images acquired from the diaphragm to the symphysis pubis after a 10-minute delay. 2 mm thick coronal and sagittal reformats were then performed of the kidneys and ureters. For radiation dose reduction, the following was used: automated exposure control, adjustment of mA and/or kV according to patient size. COMPARISON: Located Within [facility], CT, CT CHEST ABD PEL W CON, 08/01/2022, 11:09. FINDINGS: Image quality: Diagnostic. Kidneys and Ureters: Both kidneys are normal in size, without hydronephrosis or nephrolithiasis. No perinephric fat stranding. There is normal bilateral renal enhancement. Renal calyces appear normal in morphology when filled with contrast. Opacified portions of both ureters demonstrate normal caliber Bladder: Diffuse bladder wall thickening. No calcified bladder stones. Bladder is incompletely distended with urinary contrast. OTHER: Lower chest: Stable 3 millimeter solid nodule in the right lower lobe (series 5, image 12). Liver: No solid mass. Gallbladder: Absent. Biliary ducts: No biliary dilation. Pancreas: No ductal dilation. Spleen: Similar in size, measuring 10.6 x 12.5 x 4.4 centimeter. Adrenal Glands: No adrenal nodules. Stomach and Bowel: Inflamed diverticulum of the sigmoid colon (series 6, image 88). No adjacent abscess or free air. Peritoneum: No abnormal intraperitoneal fluid. No free air. Ventral Wall: No hernia. Abdominal Nodes: No retroperitoneal or mesenteric adenopathy by size criteria. Vessels: Aorta and inferior vena cava are normal in size. Stable fat stranding surrounding celiac axis PELVIS: Pelvic Organs: Unremarkable. Pelvic Nodes: No enlarged lymph nodes. Miscellaneous: No inguinal hernias are seen. Bones: No aggressive osseous abnormality. IMPRESSION: No nephrolithiasis or filling defects within the opacified renal collecting system or ureters. Bladder is incompletely distended with urinary contrast. Consider direct visualization. Diffuse bladder wall thickening, concerning for cystitis. Mild colonic diverticulitis of the sigmoid colon. Stable mild splenomegaly and fat stranding adjacent to the celiac axis, most consistent with lymphoma. Dictated by: George Benton M.D. on 06/14/2023 at 17:22 Approved by: George Benton M.D. on 06/14/2023 at 17:26
[2023-06-14 13:15] LABS: BUN Creatinine Ratio 23.3 (6-22); Blood Urea Nitrogen 17 mg/dL (7-17); Calcium 10.9 mg/dL (8.4-10.2); Carbon Dioxide 22 mmol/L (22-32); Chloride 106 mmol/L (98-107); Estimated Glomerular Filt Rate > 60 mL/min (>60); Glucose 157 mg/dL (80-110); HEMOLYSIS < 15 (0-50); Potassium 3.9 mmol/L (3.4-5.1); Sodium 141 mmol/L (137-145)
== END ==
PROVIDERS: Family Provider Student in an Organized Health Care Education/Training Program; PCP Student in an Organized Health Care Education/Training Program; Referring Provider Urology; Visit Provider Urology
DX: N39.0 Urinary tract infection, site not specified (principal); K57.32 Diverticulitis of large intestine without perforation or abscess without bleeding; R16.1 Splenomegaly, not elsewhere classified; Z95.828 Presence of other vascular implants and grafts
CPT/HCPCS: 36415; 36590; 74178; 80048; Q9967

== ENCOUNTER → 2023-06-20 08:41 | Outpatient (CLI) | payer MEDICARE, SELFPAY ==
[2023-05-30 14:22] VITALS: BMI 46.6
== END ==
PROVIDERS: Family Provider Student in an Organized Health Care Education/Training Program; PCP Student in an Organized Health Care Education/Training Program; Visit Provider Urology
DX: N39.0 Urinary tract infection, site not specified (principal); N95.2 Postmenopausal atrophic vaginitis
CPT/HCPCS: 52000; 81002; 87086

== ENCOUNTER → 2024-08-18 12:01 | Outpatient (CLI) | payer MEDICARE, SELFPAY ==
[2023-05-30 14:22] VITALS: BMI 46.6
--- NOTE | 2024-08-18 12:03 | DI.US.S_ITS ---
PROCEDURE: US ART LOW EXT BILAT W/MOLLY INDICATIONS: NON PRESSURE ULCER. ARTERIAL/MOLLY TBI TECHNIQUE: Color and pulse Doppler interrogation was performed of both lower extremity arterial systems, with image documentation. COMPARISON: None. FINDINGS: Right lower extremity: Common femoral artery: 100 cm/sec, with triphasic flow. Deep femoral artery: 84 cm/sec, with biphasic flow. Proximal superficial femoral artery: 93 cm/sec, with triphasic flow. Mid superficial femoral artery: 92 cm/sec, with triphasic flow. Distal superficial femoral artery: 67 cm/sec, with triphasic flow. Popliteal artery: 69 cm/sec, with triphasic flow. Posterior tibial artery: 112 cm/sec, with triphasic flow. Anterior tibial artery/dorsalis pedis: 68 cm/sec, with triphasic flow. Lynch-scale imaging description: Mild scattered plaque Left lower extremity: Common femoral artery: 81 cm/sec, with biphasic flow. Deep femoral artery: 50 cm/sec, with biphasic flow. Proximal superficial femoral artery: 82 cm/sec, with triphasic flow. Mid superficial femoral artery: 70 cm/sec, with triphasic flow. Distal superficial femoral artery: 64 cm/sec, with triphasic flow. Popliteal artery: 82 cm/sec, with triphasic flow. Posterior tibial artery: 109 cm/sec, with triphasic flow. Anterior tibial artery/dorsalis pedis: 47 cm/sec, with triphasic flow. Lynch-scale imaging description: Mild scattered plaque MOLLY: Right: 1.1 Left: 1.1 Brachial pressures: Right: 177/91 Left: 163/81 IMPRESSION: No hemodynamically significant stenosis. ABIs are within normal limits. Mildly elevated brachial pressures. Dictated by: Pati Reveles M.D. on 08/19/2024 at 6:50 Approved by: Pati Reveles M.D. on 08/19/2024 at 6:52
== END ==
LOC: US 12:03
PROVIDERS: Family Provider Student in an Organized Health Care Education/Training Program; PCP Student in an Organized Health Care Education/Training Program; Referring Provider Podiatrist Foot & Ankle Surgery; Visit Provider Podiatrist Foot & Ankle Surgery
DX: I87.2 Venous insufficiency (chronic) (peripheral) (principal); L97.511 Non-pressure chronic ulcer of other part of right foot limited to breakdown of skin
CPT/HCPCS: 93922; 93925

== ENCOUNTER → 2025-01-14 16:35 | Outpatient (CLI) | payer MEDICARE, SELFPAY ==
[2023-05-30 14:22] VITALS: BMI 46.6
== END ==
PROVIDERS: Family Provider Student in an Organized Health Care Education/Training Program; PCP Student in an Organized Health Care Education/Training Program; Visit Provider Nurse Practitioner Family
DX: R30.0 Dysuria (principal); N89.8 Other specified noninflammatory disorders of vagina
CPT/HCPCS: 87086; 87210